=== PATIENT | male | born 1950 | race Caucasian/White ===

== ENCOUNTER 2022-08-13 08:40 | Outpatient (CLI) | payer OTHER, SELFPAY ==
--- NOTE | 2022-08-13 09:04 | RAD_ITS ---
EXAM: XR CHEST, 2 VIEWS CLINICAL INDICATION: copd TECHNIQUE: Frontal and lateral views of the chest. This report was created using [employer] report generation technology. COMPARISON: XR Chest dated 05/10/2017 FINDINGS: LUNGS AND PLEURAL SPACES: Hyperinflation suggesting emphysema. No pneumothorax. No effusion. HEART: Normal heart size. MEDIASTINUM: No mediastinal or hilar mass. BONES/JOINTS: Multiple wedge compression deformities of the thoracic vertebral bodies related to underlying osteoporosis. SOFT TISSUES: Normal. RAD/Chest PA and Lateral IMPRESSION: 1. No acute cardiopulmonary abnormality. 2. COPD. 3. Chronic appearing compression deformities of the thoracic vertebral bodies related to osteoporosis. Electronically Signed: Luis Enrique Chandra MD at 11:30 EST ,
[2022-08-13 09:29] LABS: Absolute Lymphocyte Count 1.39 X10^3/uL (0.83-4.51); Absolute Neutrophil Count 3.1 X10^3/uL (2.0-7.7); Basophil# 0.02 X10^3/uL; Basophil% 0.3 % (0-1); Eosinophil# 0.51 X10^3/uL; Eosinophils% 8.9 % (0-5); Hematocrit 40.3 % (40-54); Lymphocyte # 1.39 X10^3/ul (0.83-4.51); Lymphocyte % 24.1 % (19-41); Mean Corp Hgb Conc 32.3 g/dL (32-36); Mean Corpuscular Hgb 30.8 pg (27.0-32.0); Mean Corpuscular Volume 95.5 fL (80-94); Mean Platelet Vol. 9.2 fl (6.2-12.0); Monocyte# 0.73 X10^3/uL; Monocyte% 12.7 % (0-10); NRBC Flagged by Analyzer 0 % (0-5); Neutrophil # 3.09 X10^3/uL (2.7-7.7); Neutrophil % 53.7 % (47-70); Platelet Count 255 K/mm3 (150-450); RBC Distribution Width CV 13.7 % (11.6-14.6); RBC Distribution Width SD 47.9 fl (35.1-43.9); Red Blood Count 4.22 M/mm3 (4.6-6.2); White Blood Count 5.8 K/mm3 (4.4-11.0)
[2022-08-15 20:07] LABS: Alternaria tenuis <0.10 kU/L (Class 0); Ash, White <0.10 kU/L (Class 0); Aspergillus fumigatus <0.10 kU/L (Class 0); Bermuda Grass <0.10 kU/L (Class 0); Birch <0.10 kU/L (Class 0); Black Walnut <0.10 kU/L (Class 0); Cat Hair / Dander,Stand <0.10 kU/L (Class 0); Cedar, Mountain <0.10 kU/L (Class 0); Cladosporium herbarum <0.10 kU/L (Class 0); Cockroach, American <0.10 kU/L (Class 0); Cottonwood <0.10 kU/L (Class 0); D farinae Mite <0.10 kU/L (Class 0); D pteronyssinus <0.10 kU/L (Class 0); Dog Epithelia <0.10 kU/L (Class 0); Elm, American White <0.10 kU/L (Class 0); Immunoglobulin E 31 IU/mL (6-495); Maple/Box Elder <0.10 kU/L (Class 0); Mulberry, White <0.10 kU/L (Class 0); Oak, White <0.10 kU/L (Class 0); Pecan <0.10 kU/L (Class 0); Penicillium Notatum <0.10 kU/L (Class 0); Pigweed, Rough <0.10 kU/L (Class 0); Ragweed, Short/Common <0.10 kU/L (Class 0); Russian Thistle <0.10 kU/L (Class 0); Sheep Sorrel <0.10 kU/L (Class 0); Sycamore, American <0.10 kU/L (Class 0); Timothy Grass <0.10 kU/L (Class 0)
[2022-08-15 20:35] LABS: Mouse Urine <0.10 kU/L (Class 0)
[2022-08-18 18:07] LABS: Immunoglobulin E 134 IU/mL (6-495)
== END 2022-08-13 23:59 | disposition home or self-care (01) ==
PROVIDERS: PCP Family Medicine; Referring Provider Internal Medicine; Visit Provider Internal Medicine
DX: J44.9 Chronic obstructive pulmonary disease, unspecified (principal); M81.0 Age-related osteoporosis without current pathological fracture
CPT/HCPCS: 36415; 71046; 82785; 85025; 86003

== ENCOUNTER → 2022-08-20 | Outpatient (CLI) | payer OTHER, SELFPAY ==
[2022-08-24 10:15] LABS: Enterovirus By PCR Negative (Negative)
== END | disposition home or self-care (01) ==
LOC: LABSPEC 10:44
PROVIDERS: PCP Family Medicine; Referring Provider Internal Medicine; Visit Provider Internal Medicine
DX: R19.7 Diarrhea, unspecified (principal); D72.10 Eosinophilia, unspecified
CPT/HCPCS: 87177; 87209; 87498

== ENCOUNTER → 2022-08-27 | Outpatient (CLI) | payer SELFPAY, OTHER ==
--- NOTE | 2022-08-27 13:31 | PFTCOMP_ITS ---
COMPLETE PULMONARY FUNCTION TEST INTERPRETATION Brief HPI: Patient is a 72-year-old male, currently under the care of Dr. Romo, who presents to [facility] for complete pulmonary function tests secondary to diagnosis of COPD. Respiratory therapist reports good effort and reproducible results. Interpretation: Forced expiration spirometry shows a very severe large airways obstructive ventilatory defect with an FEV1 of 33% predicted. There is a significant bronchodilator response in FVC by strict ATS criteria. Spirograms are of good quality and plateau slowly, indicating slowly emptying areas of the lungs. The respiratory flow volume loop shows decreased expiratory flow rates at all lung volumes consistent with airway obstruction. Lung volumes by body plethysmography show a decreased total lung capacity at 3.95 L, 72% predicted. There is a trend towards air trapping with hype rinflation, but this does not meet diagnostic criteria by strict ATS criteria. Diffusion capacity by carbon monoxide is decreased at 66% predicted. The airway resistance is elevated. No previous pulmonary function tests were available for review. Impression: Partially reversible very severe large airways mixed ventilatory defect with relatively preserved diffusing capacity.
== END | disposition home or self-care (01) ==
LOC: PSN 09:14
PROVIDERS: PCP Family Medicine; Referring Provider Internal Medicine; Visit Provider Internal Medicine
DX: J44.9 Chronic obstructive pulmonary disease, unspecified (principal); J98.8 Other specified respiratory disorders
CPT/HCPCS: 94060; 94726; 94729

== ENCOUNTER → 2022-09-19 | Outpatient (CLI) | payer OTHER, SELFPAY ==
[2022-09-19 10:30] LABS: Absolute Lymphocyte Count 1.93 X10^3/uL (0.83-4.51); Absolute Neutrophil Count 5.4 X10^3/uL (2.0-7.7); Basophil# 0.06 X10^3/uL; Basophil% 0.6 % (0-1); Eosinophils% 9.6 % (0-5); Hematocrit 43.5 % (40-54); Hemoglobin 13.8 g/dL (13.0-16.5); Lymphocyte # 1.93 X10^3/ul (0.83-4.51); Lymphocyte % 20.7 % (19-41); Mean Corp Hgb Conc 31.7 g/dL (32-36); Mean Corpuscular Hgb 30.1 pg (27.0-32.0); Mean Platelet Vol. 9.5 fl (6.2-12.0); Monocyte# 1.04 X10^3/uL; Monocyte% 11.1 % (0-10); NRBC Flagged by Analyzer 0 % (0-5); Neutrophil # 5.38 X10^3/uL (2.7-7.7); Neutrophil % 57.7 % (47-70); Platelet Count 230 K/mm3 (150-450); RBC Distribution Width CV 13.8 % (11.6-14.6); RBC Distribution Width SD 48.3 fl (35.1-43.9); Red Blood Count 4.58 M/mm3 (4.6-6.2); White Blood Count 9.3 K/mm3 (4.4-11.0)
== END | disposition home or self-care (01) ==
LOC: LAB 10:00
PROVIDERS: PCP Family Medicine; Referring Provider Internal Medicine; Visit Provider Internal Medicine
DX: J44.9 Chronic obstructive pulmonary disease, unspecified (principal); J30.9 Allergic rhinitis, unspecified
CPT/HCPCS: 36415; 85025

== ENCOUNTER → 2022-10-11 | Outpatient (CLI) | payer OTHER, SELFPAY | END | disposition home or self-care (01) | LOC: SL 12:06 | PROVIDERS: PCP Family Medicine; Referring Provider Internal Medicine; Visit Provider Internal Medicine | DX: J44.9 Chronic obstructive pulmonary disease, unspecified (principal) | CPT/HCPCS: 94762 ==

== ENCOUNTER → 2022-11-09 | Outpatient (CLI) | payer SELFPAY, OTHER ==
--- NOTE | 2022-11-09 14:01 | PFTCOMP ---
COMPLETE PULMONARY FUNCTION TEST INTERPRETATION Brief HPI: Patient is a 72-year-old male, currently under the care of Dr. Romo, who presents to [facility] for complete pulmonary function tests secondary to diagnosis of COPD. Respiratory therapist reports good effort and reproducible results. Interpretation: Forced expiration spirometry shows a very severe large airways obstructive ventilatory defect with an FEV1 of 35% predicted. There is a significant bronchodilator response in FVC by strict ATS criteria. Spirograms are of good quality and plateau slowly, indicating slowly emptying areas of the lungs. The respiratory flow volume loop shows decreased expiratory flow rates at all lung volumes consistent with airway obstruction. Lung volumes by body plethysmography show a normal total lung capacity at 4.96 L, 90% predicted. FRC and RV are elevated out of proportion. Lung volume measurements are consistent with air-trapping. Diffusion capacity by carbon monoxide is normal at 101% predicted. The airway resistance is elevated. Compared to previous pulmonary function tests from 08/27/2022, there is been a significant improvement in lung volumes and DLCO. Impression: Partially reversible very severe large airways obstructive ventilatory defect resulting in air trapping, but some improvements compared to August 2022
== END | disposition home or self-care (01) ==
PROVIDERS: PCP Family Medicine; Referring Provider Internal Medicine; Visit Provider Internal Medicine
DX: J30.9 Allergic rhinitis, unspecified (principal); J44.9 Chronic obstructive pulmonary disease, unspecified; Z87.891 Personal history of nicotine dependence; D72.10 Eosinophilia, unspecified
CPT/HCPCS: 94060; 94726; 94729

== ENCOUNTER → 2023-02-11 | Outpatient (CLI) | payer SELFPAY, OTHER ==
--- NOTE | 2023-02-12 16:31 | PFTCOMP ---
Complete pulmonary function test report Indication: COPD Referring physician: Dr. Eduardo Romo Conditions:on the patient's maintenance COPD medications of Breztri once daily budesonide once daily and albuterol as needed Spirometry pre and post bronchodilator showed: 1. Very severe airway obstruction, consistent with Gold stage IV COPD. 2. No significant response to bronchodilator. 3. Review of the flow volume loop corroborated the severe airway obstruction. The test met standards of acceptability, reproducibility, and usability. Compared to spirometry 11/09/2022, the FVC decreased by 8%, FEV 1 x 7%, FEF 2575 x 1%. This is likely a clinically significant difference. Lung volume studies by plethysmography showed: 1. Mild restriction is suggested by TLC of 72% predicted, vital capacity of 60% predicted, functional residual capacity of 68% predicted. 2. There was no evidence of hyperinflation. Compared to the test 6 11/09/2022, the total lung capacity has decreased by 20%. Residual volume decreased by 36%. Clinical and radiographic correlation is recommended. Diffusion capacity by single breath carbon monoxide technique showed: 1. Mildly decreased gas exchange, which normalized when adjusted for lung volumes. This is consistent with COPD related gas exchange abnormality. Compared to the test 11/09/2022, DLCO has decreased by 34%. School Bus Driver/Teacher Assistant comments indicated a good patient effort.
== END | disposition home or self-care (01) ==
PROVIDERS: PCP Family Medicine; Referring Provider Nurse Practitioner Acute Care; Visit Provider Nurse Practitioner Acute Care
DX: J44.9 Chronic obstructive pulmonary disease, unspecified (principal)
CPT/HCPCS: 94060; 94726; 94729

== ENCOUNTER → 2023-02-19 | Outpatient (CLI) | payer OTHER, SELFPAY ==
[2023-02-19 09:44] LABS: Anion Gap 5 (5-15); BUN 16 mg/dL (7-18); BUN/Creat Ratio 14.2 RATIO (10-20); Calcium,Total 8.7 mg/dL (8.5-10.1); Chloride 103 mmol/L (98-107); Creatinine, Serum 1.13 mg/dL (0.70-1.30); EST Glomerular Filtration Rate 67 mL/min (>60); Est Glom Filt Rate - Afr Amer 81 mL/min (>60); Glucose 121 mg/dL (74-106); Potassium 3.8 mmol/L (3.5-5.1); Sodium Level 138 mmol/L (136-145)
[2023-02-19 09:59] LABS: Magnesium 2.3 mg/dL (1.6-2.6); Phosphorus 2.7 mg/dL (2.5-4.9)
== END | disposition home or self-care (01) ==
LOC: LAB 08:37
PROVIDERS: PCP Family Medicine; Referring Provider Internal Medicine; Visit Provider Internal Medicine
DX: F41.8 Other specified anxiety disorders (principal)
CPT/HCPCS: 36415; 80048; 83735; 84100

== ENCOUNTER 2024-10-22 15:53 | Inpatient (IN) | payer OTHER, SELFPAY ==
[2024-10-22] VITALS (9 sets, daily range): BP systolic 111–152; BP diastolic 72–82; PULSE 100–110; RESP 16–26; TEMP 36.3–37.4; O2SAT 90–96; BMI 19.4; BMI 19.9
--- NOTE | 2024-10-22 16:36 | EKG12_ITS ---
Test Reason : Blood Pressure : */* mmHG Vent. Rate : 102 BPM Atrial Rate : 102 BPM P-R Int : 122 ms QRS Dur : 94 ms QT Int : 332 ms P-R-T Axes : 78 79 78 degrees QTcB Int : 432 ms Sinus tachycardia Otherwise normal ECG Confirmed by CANDIDO MCCARTHY, HERNESTO ([id number]), web editor ROB WHITE ([id number]) on 10/26/2024 8:09:49 AM Referred By: aJni Britt Confirmed By: HERNESTO REY MD
--- NOTE | 2024-10-22 16:37 | EDS_ITS ---
HPI History of Present Illness Chief Complaint: Shortness of Breath Informant: patient and spouse/S.O. Narrative Narrative: 74-year-old [employer]reg[employer] male presenting to the emergency room with difficulty breathing. Patient states that he has a history of COPD and is a former smoker. 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 Yesterday and more so today he notes shortness of breath. It is he states it took him 30 minutes to get his shirt on this morning. He denies any significant change in cough. He notes some lower lateral discomfort just underneath his rib cage that has resolved. He notes that his ankles have seemed more swollen since he was on some prednisone and later transition to meloxicam. states it looks like his face is more swollen today. He denies fever rhinorrhea headache diarrhea. He notes difficulty with urination. [facility] Medical History Perennial non-allergic rhinitis Stage 3 severe chronic obstructive pulmonary disease by Global Initiative for Chronic Obstructive Lung Disease classification Chronic obstructive asthma (with obstructive pulmonary disease) Allergic rhinitis due to allergen Left wrist Home Medications ?Medication ?Instructions ?Recorded ?Last Taken ?Type mirtazapine 15 mg tablet 15 mg PO QHS 08/13/22 History ipratropium bromide 21 mcg (0.03 2 spray intranasal BI D-TID PRN 11/20/22 Unknown Rx %) nasal spray allergy symptoms #30 mL potassium chloride 10 mEq 10 meq PO DAILY #30 tabs Unknown Rx tablet,extended release albuterol sulfate 90 mcg/actuation 2 inh inhalation Q6 H PRN shortness 09/24/23 Unknown Rx aerosol inhaler of breath or wheezing #8.5 g shalonda budesonide 160 mcg-glycopyr 9 2 inh inhalation BID #10 .7 grams 08/24/24 Unknown Rx mcg-formot 4.8 mcg/actuation HFA inhaler (Breztri Aerosphere) alprazolam 1 mg tablet 0.5 mg PO QHS 10/22/2410/21 History meloxicam 15 mg tablet 15 mg PO DAILY 10/22/2410/10 History venlafaxine 75 mg capsule,extended 75 mg PO DAILY 10/1010/22/24 History release 24 hr Allergy/AdvReac Type Severity Reaction Status Date / Time Sulfa (Sulfonamide Allergy Unknown Verified 10/22/24 15:54 Antibiotics) Family History Mother Heart disease Surgical History Right arm and ankle Left elbow ORIF Social History Smoking Status: Former smoker ROS ROS ED Constitutional Constitutional ED: Denies chills, fever(s) or weight loss Eyes Eyes: Denies change in vision or diplopia ENT ENT ED: Denies ear pain, rhinorrhea or sore throat Cardiovascular Cardiovascular: Denies chest pain, orthopnea, palpitations or racing heartbeat Respiratory/Chest Respiratory/Chest: Reports dyspnea and dyspnea on exertion; Denies cough or orthopnea Gastrointestinal Gastrointestinal: Denies abdominal pain, diarrhea, nausea or vomiting Genitourinary Genitourinary ED: Denies dysuria, hematuria or urinary frequency Musculoskeletal Musculoskeletal: Denies arthralgias or myalgias Integumentary Denies abscess or rash Neurologic Neurologic: Denies headache(s) or weakness Psychiatric Psychiatric: Denies anxiety, depression, suicidal ideation or suicidal thoughts Endocrine Endocrinology: Denies polydipsia, polyphagia or polyuria Allergic/Immunologic Allergic/Immunologic ED: Denies mouth swelling, tongue swelling or urticaria EXAM Physical Exam Const Vital Signs: 10/22/24 15:54 10/22/24 15:54 10/22/24 16:48 Temperature 99.4 F H Temperature Source Oral Pulse Rate 110 H 101 H Respiratory Rate 26 H 20 H Respiratory Effort Normal Non-Labored Respiratory Depth Normal Respiratory Pattern Normal Normal Blood Pressure 152/81 H Blood Pressure Mean 104 Pulse Ox 90 Oxygen Delivery Method Room Air Room Air 10/22/24 17:54 10/22/24 19:00 10/22/24 19:42 Temperature 99.2 F H Temperature Source Pulse Rate 100 100 101 H Respiratory Rate 16 25 H 25 H Respiratory Effort Respiratory Depth Respiratory Pattern Blood Pressure 111/77 126/72 H 126/72 H Blood Pressure Mean 88 90 90 Pulse Ox 95 94 92 Oxygen Delivery Method Room Air Positive well nourished and well developed General Appearance ED: well developed HEENT Reports normocephalic, head/scalp atraumatic and moist mucous membranes Eyes PERRL and EOMs intact bilaterally Neck no lymphadenopathy, supple and no JVD Resp Resp Narrative: Patient has a quiet tachypnea. He is conversational dyspnea. Significantly diminished breath sounds bilaterally. Cardio regular rate, regular rhythm and no murmurs Rate: tachycardic GI normal to inspection, nondistended, normoactive bowel sounds and non-tender Palpation: soft Back/Spine no CVA tenderness and normal ROM Extremity normal to inspection General Extremety ED: Negative for edema General Extremity: Negative for edema Neuro oriented x3 and CN's II-XII intact bilaterally Sensorium / Orientation: alert Motor Exam: strength 5/5 throughout Psych mental status grossly normal Mood & Affect: Negative for depressed or tearful Skin no rashes or lesions noted and no wounds MDM MDM MDM Narrative Medical decision making narrative: Differential diagnosis includes but not limited to pneumonia viral syndrome COPD exacerbation pneumothorax pulmonary embolism acute coronary syndrome congestive heart failure Patient's white count slightly elevated 12.5 hemoglobin 12.2 platelet count of 215. Troponin is 7 BNP is 63 BMP within normal limits. My independent interpretation of the chest x-ray is chronic changes associated with COPD with possible early infiltrate in the right lower lung. EKG is nonischemic sinus tachycardia at 102. Patient received breathing treatments as well as Solu-Medrol. A CTA of the chest was obtained to rule out pulmonary embolism as well as gain greater clarity of the right lower lobe. CT does not demonstrate any obvious pulmonary emboli. There is evidence of bronchiectasis and honeycombing. There is evidence of emphysema. No obvious pleural effusion. Patient was reassessed. He feels better. He is satting 91% on room air. He is still slightly tachycardic at 103. He was ambulated. With simple ambulation the patient became noticeably dyspneic pulse ox fell to around 85% and it took him a brief period to recover back in the bed. Patient I do think it is reasonable that we admit the patient for continued treatments geared towards COPD exacerbation. I spoke with our hospitalist regarding admission. We discussed antibiotics and both agreed on giving him a dose of Zosyn. Will plan blood cultures. I do not believe he is septic at this time. History & Record Review Discussion w/independent historian: Patient and Significant other Lab Data Attestation: I reviewed the patient's lab results. Labs: Laboratory Results - last 24 hr 10/22/24 16:55 WBC 12.5 H RBC 3.95 L Hgb 12.2 L Hct 37.1 L MCV 93.9 MCH 30.9 MCHC 32.9 RDW Std Deviation 45.9 H RDW Coeff of [place] 13.3 Plt Count 215 MPV 9.2 Immature Gran % (Auto) 0.400 Neut % (Auto) 80.5 H Lymph % (Auto) 10.0 L Lau[place] % (Auto) 8.1 Eos % (Auto) 0.6 Baso % (Auto) 0.4 Absolute Neuts (auto) 10.0 H Absolute Lymphs (auto) 1.25 Nucleated RBC % 0 Sodium 136 Potassium 4.0 Chloride 102 Carbon Dioxide 29.0 Anion Gap 6 BUN 13 Creatinine 1.02 Estim Creat Clear Calc 47.67 Est GFR (MDRD) Af Amer 91 Est GFR (MDRD) Non-Af 75 BUN/Creatinine Ratio 12.7 Glucose 86 Calcium 9.2 Troponin I High Sens 7 B-Natriuretic Peptide 63.0 Radiography Diagnostic Testing: Clinical Impression(s) from Imaging Studies Chest X-Ray 10/22/24 17:00 IMPRESSION: 1. Ill-defined patchy airspace opacification within the right lower lung zone, which is nonspecific but may be seen in infectious/inflammatory pneumonia. 2. COPD. Reading Location: [facility] Chest CTA 10/22/24 17:46 IMPRESSION: 1. No evidence of acute pulmonary emboli. 2. Bilateral ground-glass opacities with bronchiectasis and honeycombing, most compatible with interstitial pulmonary fibrosis such as combined pulmonary fibrosis and emphysema or NSIP. Additional considerations include atypical pneumonia. Clinical and laboratory correlation recommended. 3. Moderate emphysema. 4. Small lobular left upper lobe pulmonary nodule. Correlation with prior CT chest imaging is recommended if available. If no imaging available, recommend follow-up CT chest in 6-12 months is recommended. 5. Moderate coronary artery calcifications. One or more dose reduction techniques were used (e.g., Automated exposure control, adjustment of the mA and/or kV according to patient size, use of iterative reconstruction technique). Reading Location: [facility] Management Discussion w/another healthcare provider: Hospitalist (Dr Lowery) Discharge Plan Dx/Rx/DC Orders Clinical Impression: COPD with acute exacerbation Disposition Disposition: Acute Care Hospital [facility]
[2024-10-22] MEDS: Ipratropium/Albuterol Sulfate 3 ML AMPUL.NEB INHALATION (16:46)
[2024-10-22] MEDS: Albuterol 2.5 MG/3 ML VIAL.NEB. INHALATION (16:46)
--- NOTE | 2024-10-22 17:00 | RAD_ITS ---
PROCEDURE: CHEST 1 VIEW (PORTABLE) REASON FOR EXAM: 74-year-old male, shortness of breath and weakness for 1 day. TECHNIQUE: Frontal view of the chest. COMPARISON: Chest radiographs 08/13/2022. FINDINGS: The heart size is normal. Calcification of the thoracic aorta. Stable findings of emphysema and COPD. Mild ill-defined patchy airspace opacification within the right lower lung zone. No pleural effusion or pneumothorax. Degenerative changes are identified within the thoracic spine. RAD/Chest 1 View (Portable) IMPRESSION: 1. Ill-defined patchy airspace opacification within the right lower lung zone, which is nonspecific but may be seen in infectious/inflammatory pneumonia. 2. COPD. Reading Location: [id number]
[2024-10-22 17:06] LABS: Absolute Lymphocyte Count 1.25 X10^3/uL (0.83-4.51); Basophil# 0.05 X10^3/uL; Basophil% 0.4 % (0-1); Eosinophil# 0.07 X10^3/uL; Eosinophils% 0.6 % (0-5); Hematocrit 37.1 % (40-54); Hemoglobin 12.2 g/dL (13.0-16.5); Lymphocyte # 1.25 X10^3/ul (0.83-4.51); Mean Corp Hgb Conc 32.9 g/dL (32-36); Mean Corpuscular Hgb 30.9 pg (27.0-32.0); Mean Corpuscular Volume 93.9 fL (80-94); Mean Platelet Vol. 9.2 fl (6.2-12.0); Monocyte# 1.01 X10^3/uL; Monocyte% 8.1 % (0-10); NRBC Flagged by Analyzer 0 % (0-5); Neutrophil # 10.02 X10^3/uL (2.7-7.7); Neutrophil % 80.5 % (47-70); Platelet Count 215 K/mm3 (150-450); RBC Distribution Width CV 13.3 % (11.6-14.6); RBC Distribution Width SD 45.9 fl (35.1-43.9); Red Blood Count 3.95 M/mm3 (4.6-6.2); White Blood Count 12.5 K/mm3 (4.4-11.0)
[2024-10-22] MEDS: MethylPREDNISolone 125 MG/2 ML Vial 60 MG IV (17:20)
[2024-10-22 17:44] LABS: Anion Gap 6 (5-15); BUN 13 mg/dL (7-18); BUN/Creat Ratio 12.7 RATIO (10-20); Calcium,Total 9.2 mg/dL (8.5-10.1); Chloride 102 mmol/L (98-107); Creatinine, Serum 1.02 mg/dL (0.70-1.30); EST Glomerular Filtration Rate 75 mL/min (>60); Est Glom Filt Rate - Afr Amer 91 mL/min (>60); Estimated Creatinine Clearance 47.67 ml/min; Glucose 86 mg/dL (74-106); Sodium Level 136 mmol/L (136-145); Troponin-I HS 7 pg/mL (3.0-78.0)
--- NOTE | 2024-10-22 17:46 | CT_ITS ---
PROCEDURE: CTA CHEST W/WO CONTRAST REASON FOR EXAM: 74-year-old male, shortness of breath and weakness. TECHNIQUE: CTA imaging of the chest with intravenous contrast. 3D reconstructions. CONTRAST: Administered. COMPARISON: Same day chest radiograph. FINDINGS: Hardware: None. Lymph nodes: No mediastinal hilar or axillary lymphadenopathy. Calcified left hilar granulomas. Heart: Normal heart size. No pericardial effusion. Moderate coronary artery calcifications. RV/LV Diameter Ratio: N/A Thoracic Aorta: No thoracic aortic aneurysm or dissection. Moderate calcific plaque of the thoracic aorta. Pulmonary Vessels: No evidence of acute pulmonary emboli through the major subsegmental branches. Most Proximal Level of Embolus (if embolus present): N/A Lungs and Airways: Central airways are patent. Moderate paraseptal and centrilobular emphysema with scattered areas of scarring. Mild bilateral bronchiectasis. Small lobular pulmonary nodule within the left upper lobe measuring 1.2 cm (series 2, image 114). Patchy ground-glass opacities within the bilateral dependent lower lobes, [id number], with associated bronchiectasis and honeycombing. Pleura: No pleural effusion. No pneumothorax. Upper Abdomen: Calcific plaque of the upper abdominal aorta. Bones: Diffuse osseous demineralization with severe chronic appearing vertebral body compression fracture deformities throughout the thoracic spine. Moderate kyphosis. Left lateral rib fracture deformities. CT/CTA Chest W/WO Contrast IMPRESSION: 1. No evidence of acute pulmonary emboli. 2. Bilateral ground-glass opacities with bronchiectasis and honeycombing, most compatible with interstitial pulmonary fibrosis such as combined pulmonary fibrosis and emphysema or NSIP. Additional consider ations include atypical pneumonia. Clinical and laboratory correlation recommended. 3. Moderate emphysema. 4. Small lobular left upper lobe pulmonary nodule. Correlation with prior CT c hest imaging is recommended if available. If no imaging available, recommend follow-up CT chest in 6-12 months is recommended. 5. Moderate coronary artery calcifications. One or more dose reduction techniques were used (e.g., Automated exposure contr ol, adjustment of the mA and/or kV according to patient size, use of iterative reconstruction technique). Reading Location: [id number]
--- NOTE | 2024-10-22 19:44 | PCM.HP.STD ---
[facility] - General General Date of Admission: 10/22/24 Date of Service: 10/22/24 Chief Complaint: SOB and Wheezing. 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 HS, listed allergy to sulfa antibiotics (?), history of closed olecranon fracture; s/p ORIF (2017) and OA who presents to [facility] ER complaining of shortness of breath. Mr. 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 When he woke up this morning he took an ~30 minutes to get his shirt on due to severe fatigue and soreness in his lower ribs that has since resolved. He admits to ankle and face swelling after recent prednisone with transition later to meloxicam. He also admits to difficulty with urination but he denies fever, chills, nausea, vomiting, diarrhea, constipation, abdominal pain, headache or focal neurologic deficits. In the ER he was noted to have CTA of the chest that revealed no evidence of pulmonary emboli but did show bilateral ground-glass opacities with bronchiectasis and honeycombing, most compatible with Interstitial Pulmonary Fibrosis such as combined pulmonary fibrosis and emphysema or NSIP with additional considerations to include Atypical Pneumonia with moderate emphysema and small lobular Left upper lobe pulmonary nodule with follow-up CT recommended in addition to moderate coronary artery calcifications with corresponding Leukocytosis of 12.5 K present on admission and low-grade fever of 99.2 ?F complicated by tachypnea of ~25 breaths/min indicating clinical evidence of Respiratory Insufficiency due to AE COPD and he was then admitted to the PCU for ongoing care for a stay that is expected to extend beyond 2 midnights. PFSH Medical History Perennial non-allergic rhinitis Stage 3 severe chronic obstructive pulmonary disease by Global Initiative for Chronic Obstructive Lung Disease classification Chronic obstructive asthma (with obstructive pulmonary disease) Allergic rhinitis due to allergen Left wrist Home Medications ?Medication ?Instructions ?Recorded ?Last Taken ?Type mirtazapine 15 mg tablet 15 mg PO QHS 08/13/22 10/21/24 History ipratropium bromide 21 mcg (0.03 2 spray intranasal BID-TID PRN 11/20/22 Unknown Rx %) nasal spray allergy symptoms #30 mL potassium chloride 10 mEq 10 meq PO DAILY #30 tabs 11/20/22 Unknown Rx tablet,extended release albuterol sulfate 90 mcg/actuation 2 inh inhalation Q6H PRN shortness 09/24/23 Unknown Rx aerosol inhaler of breath or wheezing #8.5 grams budesonide 160 mcg-glycopyr 9 2 inh inhalation BID #10.7 grams 08/24/24 Unknown Rx mcg-formot 4.8 mcg/actuation HFA inhaler ([employer] Aerosphere) alprazolam 1 mg tablet 0.5 mg PO QHS 10/22/24 10/21/24 History meloxicam 15 mg tablet 15 mg PO DAILY 10/22/24 10/22/24 History venlafaxine 75 mg capsule,extended 75 mg PO DAILY 10/22/24 10/22/24 History release 24 hr Allergy/AdvReac Type Severity Reaction Status Date / Time Sulfa (Sulfonamide Allergy Unknown Verified 10/22/24 15:54 Antibiotics) Family History Mother Heart disease Surgical History Right arm and ankle Left elbow ORIF Social History Smoking Status: Former smoker ROS ROS Narrative Review of Systems: Constitutional: Patient denies fever or chills. Eyes: Patient denies change in vision or discharge from eyes. ENT: Patient denies rhinorrhea, sore throat or ear pain. Resp: Patient admits to dyspnea on exertion that progressed to shortness of breath at rest with wheezing. CV: Patient denies chest pain, palpitations, heart racing or lower extremity edema. GI: Patient denies abdominal pain, nausea, vomiting, diarrhea or constipation. : Patient admits to urinary frequency but he denies dysuria or hematuria. MSK: Patient denies arthralgias or myalgias. Skin: Patient denies rash, abscess, wounds or jaundice. Psych: Patient denies symptoms of uncontrolled depression or anxiety. Neuro: Patient denies headache, paresthesias or focal neurologic deficits. Allergy: Patient denies lip swelling, tongue swelling or urticaria. Hematology: Patient denies easy bleeding or easy bruisability. Endocrinology: Patient denies polyuria, polydipsia or polyphagia. 14 point review of systems otherwise negative save for positives noted above in HPI. Vital Signs Vital Signs Vital Signs: 10/22/24 15:54 10/22/24 15:54 10/22/24 16:48 Temperature 99.4 F H Temperature Source Oral Pulse Rate 110 H 101 H Respiratory Rate 26 H 20 H Respiratory Effort Normal Non-Labored Respiratory Depth Normal Respiratory Pattern Normal Normal Blood Pressure 152/81 H Blood Pressure Mean 104 Pulse Ox 90 Oxygen Delivery Method Room Air Room Air 10/22/24 17:54 10/22/24 19:00 10/22/24 19:42 Temperature 99.2 F H Temperature Source Pulse Rate 100 100 101 H Respiratory Rate 16 25 H 25 H Respiratory Effort Respiratory Depth Respiratory Pattern Blood Pressure 111/77 126/72 H 126/72 H Blood Pressure Mean 88 90 90 Pulse Ox 95 94 92 Oxygen Delivery Method Room Air Weight Weight: 120 lb 9.486 oz Body Mass Index (BMI) 19.4 Physical Exam Const alert, oriented x3 and no apparent distress Constitutional Narrative: Patient thin, gaunt and noted to have conversational dyspnea with nontoxic appearance. General Appearance: cooperative HEENT normocephalic, head/scalp atraumatic, hearing grossly normal bilaterally and moist oral mucous membranes Eyes PERRL, EOMs intact bilaterally and conjunctivae normal Neck no lymphadenopathy and supple Resp Resp Narrative: Severely diminished breath sounds bilaterally with faint expiratory wheezing. Auscultation: wheezes Cardio regular rate and regular rhythm Cardio Narrative: Tachycardia at ~101 bpm noted. GI normal to inspection, nondistended, normoactive bowel sounds, soft to palpation, non-tender and non-distended Extremity normal to inspection, full ROM and no clubbing, cyanosis or edema Skin Skin Narrative: Patient has no evidence of rash, abscess, wounds or jaundice. Neuro oriented x3, CN's II-XII intact bilaterally, moves all extremities and no focal motor deficits Sensorium / Orientation: awake, alert, oriented to person, oriented to place and oriented to time Speech: speech normal Psych affect normal Results Medical Records Data Attestation: I reviewed the patient's medical records Lab / Micro Data Attestation: I reviewed the patient's lab results. 10/22/24 16:55 10/22/24 16:55 Labs: Laboratory Results - last 24 hr 10/22/24 16:55: WBC 12.5 H, RBC 3.95 L, Hgb 12.2 L, Hct 37.1 L, MCV 93.9, MCH 30.9, MCHC 32.9, RDW Std Deviation 45.9 H, RDW Coeff of Salvador 13.3, Plt Count 215, MPV 9.2, Immature Gran % (Auto) 0.400, Neut % (Auto) 80.5 H, Lymph % (Auto) 10.0 L, [place] % (Auto) 8.1, Eos % (Auto) 0.6, Baso % (Auto) 0.4, Absolute Neuts (auto) 10.0 H, Absolute Lymphs (auto) 1.25, Nucleated RBC % 0, Sodium 136, Potassium 4.0, Chloride 102, Carbon Dioxide 29.0, Anion Gap 6, BUN 13, Creatinine 1.02, Estim Creat Clear Calc 47.67, Est GFR (MDRD) Af Amer 91, Est GFR (MDRD) Non-Af 75, BUN/Creatinine Ratio 12.7, Glucose 86, Calcium 9.2, Troponin I High Sens 7, B-Natriuretic Peptide 63.0 Imaging Radiology Impression Chest X-Ray 10/22/24 17:00 IMPRESSION: 1. Ill-defined patchy airspace opacification within the right lower lung zone, which is nonspecific but may be seen in infectious/inflammatory pneumonia. 2. COPD. Reading Location: [facility] Chest CTA 10/22/24 17:46 IMPRESSION: 1. No evidence of acute pulmonary emboli. 2. Bilateral ground-glass opacities with bronchiectasis and honeycombing, most compatible with interstitial pulmonary fibrosis such as combined pulmonary fibrosis and emphysema or NSIP. Additional considerations include atypical pneumonia. Clinical and laboratory correlation recommended. 3. Moderate emphysema. 4. Small lobular left upper lobe pulmonary nodule. Correlation with prior CT chest imaging is recommended if available. If no imaging available, recommend follow-up CT chest in 6-12 months is recommended. 5. Moderate coronary artery calcifications. One or more dose reduction techniques were used (e.g., Automated exposure control, adjustment of the mA and/or kV according to patient size, use of iterative reconstruction technique). Reading Location: [facility] Assessment & Plan Assessment/Plan (1) COPD with acute exacerbation: (2) Asthma-COPD overlap syndrome: (3) Atypical pneumonia: (4) Bronchiectasis: QUALIFIERS: Bronchiectasis type: with acute lower respiratory infection Qualified Code(s): J47.0 - Bronchiectasis with acute lower respiratory infection (5) IPF (idiopathic pulmonary fibrosis): (6) Pulmonary nodule: (7) Exposure to environmental toxic substances: (8) History of tobacco use: (9) Chronic obstructive asthma (with obstructive pulmonary disease): (10) Respiratory insufficiency: (11) Nocturnal hypoxia: (12) Difficulty urinating: (13) Perennial non-allergic rhinitis: PLAN: Plan 1. AE asthma/COPD with CTA of the chest that revealed no evidence of pulmonary emboli but did show bilateral ground-glass opacities with bronchiectasis and honeycombing, most compatible with Interstitial Pulmonary Fibrosis such as combined pulmonary fibrosis and emphysema or NSIP with additional considerations to include Atypical Pneumonia with moderate emphysema and small lobular Left upper lobe pulmonary nodule with follow-up CT recommended in addition to moderate coronary artery calcifications with Leukocytosis of 12.5K and low-grade fever of 99.2 ?F - Admit to PCU. Continue IV Solu-Medrol and empiric IV piperacillin-tazobactam and await culture and sensitivity data. Check urinary antigens to Streptococcus pneumonia and Legionella. Check extended viral respiratory panel. Continue scheduled and as needed nebulizers/inhalers as previous. Start Mucinex scheduled twice daily. Give acetaminophen as needed for [id number] (level 1-5/10) pain or fever. Give morphine IV as needed for severe (level 6-10/10 pain. Finally, we will consult forestry patrolman to see this patient on rounds in a.m. given the severity of pathology noted on his CTA of chest with help appreciated in advance. 2. Recent Toxic Environmental Exposure to dust while working at [email or web address] triggering #1 - Thankfully, patient has retired from his job at the [employer] shop. He was instructed to avoid similar exposures in the future. 3. 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 4. Respiratory Insufficiency arising from #1 - #3 in the setting of previously known Nocturnal Hypoxia - Wean supplemental oxygen as tolerated. 5. Difficulty Urinating due to suspected BPH adding to the medical complexity of #1 - #4 - Check UA and PSA. 6. Chronic perennial non-allergic rhinitis; on ipratropium bromide nasal spray 3 times daily as needed - Resume as previous. 7. Depression with anxiety; on mirtazapine, venlafaxine and alprazolam q. HS - Maintain current regimen. Check TSH. 8. Listed allergy to sulfa antibiotics (?) - Noted. We will avoid this class of agents. 9. History of closed olecranon fracture; s/p ORIF (2017) - Noted. 10. OA - Give acetaminophen prn according to scale noted in #1. 11. DVT/GI prophylaxis - Lovenox 40 mg sq daily plus SCD's. Start pantoprazole daily in light of IV steroids used to treat #1. Total time: Approximately (but not less than) 75 minutes. Charges/Coding Visit Charges Inpatient E&M: 56603 Init Hosp L3
[2024-10-22] MEDS: Piperacil/Tazobactam 4.5 GM in 0.9% Normal Saline (100mL MB+) 100 ML IV (20:19)
[2024-10-22 20:59] LABS: Thyroid Stim Hormone (TSH) 0.845 uIU/mL (0.358-3.740)
[2024-10-22 21:01] LABS: PSA,Total - Annual Screen 2.44 ng/mL (0.00-4.00)
[2024-10-22] MEDS: 0.9% Normal Saline (1000mL) 1,000 ML 70 ML IV (21:28)
[2024-10-22 21:30] LABS: Allen Test Positive; Base Excess 4 mmol/L (-2 to +2); Bicarbonate 28.3 mmol/L (22-26); Blood Gas Specimen Type ART; Mode Not entered; O2 Delivery Device Room Air; PO2 71 mmHG (75-100); SITE R Brach; SO2 94 % (95-99); Total Carbon Dioxide 30 mmol/L; pCO2 44.7 mmHg (35-45); pH 7.41 (7.35-7.45)
[2024-10-22] MEDS: 0.9% Saline Lock 10 ML Syringe IV (21:30)
[2024-10-22 22:40] LABS: Bacteria 0 SEEN /hpf (None Seen); Mucous, Urine 0 SEEN /hpf (<or=2+); Squamous Epithelial Cells - UA 0 SEEN /hpf (0-5); White Blood Cells 0 SEEN /hpf (0-5)
[2024-10-22] MEDS: Mirtazapine 15 MG Tablet PO (22:40)
[2024-10-22] MEDS: Lactobacillis Acidophilus 1 CAP PO (22:40)
[2024-10-22] MEDS: guaiFENesin 1,200 MG Tablet 1200 MG PO (22:41)
[2024-10-22] MEDS: ALPRAZolam 0.5 MG Tablet PO (22:41)
[2024-10-22 22:42] LABS: Color, Urine Yellow (Yellow); Glucose, Dipstick Normal (Normal); Ketone-Dipstick 5 mg/dl (Negative); Leukocyte Esterase-Dipstick Negative /ul (Negative); Nitrite-Dipstick Negative (Negative); Occult Blood-Urine 25 /ul (Negative); Protein-Dipstick 15 mg/dl (Negative); Specific Gravity, Urine 1.005 (1.002-1.030); Urine Bilirubin Dipstick Negative (Negative); Urine Clarity Clear (Clear); Urine Urobilinogen Normal (Normal)
[2024-10-22 23:20] LABS: Red Blood Cells-Urine 5-10 SEEN /hpf (0-5)
[2024-10-23] VITALS (8 sets, daily range): BP systolic 115–124; BP diastolic 67–71; PULSE 84–119; RESP 16–20; TEMP 35.9–37; O2SAT 90–100; BMI 19.8
[2024-10-23] MEDS: Piperacil/Tazobactam 3.375 GM in 0.9% Normal Saline (50mL MB+) 50 ML IV ×2 (05:46→14:05)
[2024-10-23 06:03] LABS: Absolute Lymphocyte Count 0.67 X10^3/uL (0.83-4.51); Absolute Neutrophil Count 8.6 X10^3/uL (2.0-7.7); Basophil# 0.01 X10^3/uL; Basophil% 0.1 % (0-1); Hematocrit 32.5 % (40-54); Hemoglobin 10.5 g/dL (13.0-16.5); Lymphocyte # 0.67 X10^3/ul (0.83-4.51); Mean Corp Hgb Conc 32.3 g/dL (32-36); Mean Corpuscular Hgb 30.7 pg (27.0-32.0); Mean Platelet Vol. 9.5 fl (6.2-12.0); Monocyte# 0.21 X10^3/uL; Monocyte% 2.2 % (0-10); NRBC Flagged by Analyzer 0 % (0-5); Neutrophil # 8.61 X10^3/uL (2.7-7.7); Neutrophil % 90.4 % (47-70); Platelet Count 212 K/mm3 (150-450); RBC Distribution Width CV 13.2 % (11.6-14.6); RBC Distribution Width SD 46.5 fl (35.1-43.9); Red Blood Count 3.42 M/mm3 (4.6-6.2); White Blood Count 9.5 K/mm3 (4.4-11.0)
[2024-10-23 06:20] LABS: ALB/GLOB Ratio 0.7 RATIO (0.9-2.4); AST(SGOT) 22 U/L (15-37); Alanine Aminotransfer ALT/SGPT 14 U/L (16-61); Albumin, Serum 2.5 g/dL (3.2-5.0); Alkaline Phosphatase 52 U/L (45-117); Anion Gap 4 (5-15); BUN 12 mg/dL (7-18); BUN/Creat Ratio 14.4 RATIO (10-20); Calcium,Total 8.6 mg/dL (8.5-10.1); Chloride 106 mmol/L (98-107); Creatinine, Serum 0.83 mg/dL (0.70-1.30); EST Glomerular Filtration Rate 95 mL/min (>60); Est Glom Filt Rate - Afr Amer 115 mL/min (>60); Estimated Creatinine Clearance 59.54 ml/min; Globulin 3.8 g/dL (2.2-4.2); Glucose 150 mg/dL (74-106); Magnesium 2.1 mg/dL (1.6-2.6); Phosphorus 3.2 mg/dL (2.5-4.9); Potassium 4.1 mmol/L (3.5-5.1); Protein, Total 6.3 g/dL (6.4-8.2); Sodium Level 138 mmol/L (136-145)
[2024-10-23] MEDS: Ipratropium/Albuterol Sulfate 3 ML AMPUL.NEB INHALATION ×2 (07:09→12:52)
[2024-10-23] MEDS: Potassium Chloride Oral Tablet 10 MEQ PO (08:00)
[2024-10-23] MEDS: Ascorbic Acid 500 MG Tablet 1000 MG PO (08:00)
[2024-10-23] MEDS: Venlafaxine XR 75 MG Capsule PO (08:01)
[2024-10-23] MEDS: Zinc Sulfate 50 mg zinc (220 mg) ORAL capsule PO (08:01)
[2024-10-23] MEDS: Cholecalciferol (Vit D3) 125 MCG CAPSULE (5,000 UNITS) PO (08:01)
[2024-10-23] MEDS: Meloxicam 15 MG Tablet PO (08:01)
[2024-10-23] MEDS: MethylPREDNISolone 125 MG/2 ML Vial 60 MG IV (08:01)
[2024-10-23] MEDS: guaiFENesin 1,200 MG Tablet 1200 MG PO (08:01)
[2024-10-23] MEDS: Pantoprazole Sodium 40 MG Tablet PO (08:01)
[2024-10-23] MEDS: Lactobacillis Acidophilus 1 CAP PO ×2 (08:01→14:05)
[2024-10-23] MEDS: 0.9% Saline Lock 10 ML Syringe IV ×2 (08:09→14:06)
[2024-10-23 11:20] LABS: Rheumatoid Factor < 10.0 IU/mL (<15)
--- NOTE | 2024-10-23 11:51 | EX.PCM.CONCC ---
Assessment & Plan Assessment/Plan (1) Asthma-COPD overlap syndrome: PLAN: Plan RECOMMENDATIONS: 1. Continue scheduled bronchodilators and steroids. 2. Okay to discontinue antimicrobials from my perspective. 3. At discharge, recommend transitioning the patient to prednisone 40 mg daily x 5 days. 4. Perform walking oximetry study prior to consideration for discharge home. 5. Check CAROLINE with reflex, ANCA, rheumatoid factor and CCP antibodies. 6. Will sign off at this time. Please call with any additional questions. IMPRESSIONS: 1. 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 Low clinical index suspicion for underlying pneumonia. Therefore, antibiotics can be discontinued from my perspective. I would recommend continuing bronchodilator therapy along with steroids. At discharge, the patient can be transition to prednisone 40 mg daily, with plans to complete a 5-day burst. Recommend resuming Breztri at discharge and following up in the pulmonary medicine clinic as scheduled on December 08. Given the subpleural interstitial changes noted in the lung bases with early honeycomb formation, will check CAROLINE with reflex, ANCA, rheumatoid factor and CCP antibodies. The patient is maintaining appropriate oxygen saturations on room air. Recommend performing ambulatory walking study prior to consideration for discharge home. Follow-up in the pulmonary medicine clinic as scheduled on December 08. 2. Left upper lobe pulmonary nodule Measuring approximately 9 mm in size on my estimation. Recommend follow-up CT scan in 3 months on outpatient basis. This note was generated with [employer]idel[employer] dictation software. It may contain incorrect words, spelling, and punctuation that were not noted in checking the note before signing. HPI Consult Data Date of Consult: 10/23/24 HPI Narrative Reason for Consultation: Shortness of breath HPI Narrative: The patient is a 74-year-old male, with a history as outlined below, who presented to the emergency department on October 22 with shortness of breath and chest tightness. The patient has a known history of very severe COPD/asthma overlap syndrome along with nocturnal hypoxemia requiring 2 L/min of supplemental oxygen with sleep. 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 Following this exposure, the patient experienced increasing shortness of breath and chest tightness. He has remained compliant with his triple therapy inhaler regimen. The patient does report a mild cough but no sputum production. On presentation to the emergency department, the patient was noted to have a temperature of 99.4 ?F. He was otherwise hemodynamically stable and maintaining appropriate oxygen saturations on room air. Laboratory evaluation was notable for a white blood cell count of 12,000. Arterial blood gas was notable for a pH of 7.4 with a pCO2 of 44 and pO2 of 71. Respiratory viral panel was negative. CTA chest showed no evidence for pulmonary embolism. There was, however, evidence of moderate emphysema and lower lobe subpleural groundglass opacities with early evidence of honeycomb formation. The patient was placed on antimicrobials, bronchodilators and steroids. He was subsequently admitted to the progressive care unit for further management. [facility] Medical History Perennial non-allergic rhinitis Stage 3 severe chronic obstructive pulmonary disease by Global Initiative for Chronic Obstructive Lung Disease classification Chronic obstructive asthma (with obstructive pulmonary disease) Allergic rhinitis due to allergen Left wrist Home Medications ?Medication ?Instructions ?Recorded ?Last Taken ?Type mirtazapine 15 mg tablet 15 mg PO QHS 08/13/22 10/21/24 History ipratropium bromide 21 mcg (0.03 2 spray intranasal BID-TID PRN 11/20/22 Unknown Rx %) nasal spray allergy symptoms #30 mL potassium chloride 10 mEq 10 meq PO DAILY #30 tabs 11/20/22 Unknown Rx tablet,extended release albuterol sulfate 90 mcg/actuation 2 inh inhalation Q6H PRN shortness 09/24/23 Unknown Rx aerosol inhaler of breath or wheezing #8.5 grams budesonide 160 mcg-glycopyr 9 2 inh inhalation BID #10.7 grams 08/24/24 Unknown Rx mcg-formot 4.8 mcg/actuation HFA inhaler (Breztri Aerosphere) alprazolam 1 mg tablet 0.5 mg PO QHS 10/22/24 10/21/24 History meloxicam 15 mg tablet 15 mg PO DAILY 10/22/24 10/22/24 History venlafaxine 75 mg capsule,extended 75 mg PO DAILY 10/22/24 10/22/24 History release 24 hr Allergy/AdvReac Type Severity Reaction Status Date / Time Sulfa (Sulfonamide Allergy Unknown Verified 10/22/24 15:54 Antibiotics) Family History Mother Heart disease Surgical History Right arm and ankle Left elbow ORIF Social History Smoking Status: Former smoker ROS ROS Narrative 10 systems were reviewed with pertinent positives as noted in the HPI above. Physical Exam Const alert, oriented x3 and no apparent distress Constitutional Narrative: Family is present at the bedside. General Appearance: cooperative HEENT normocephalic, head/scalp atraumatic and moist oral mucous membranes Eyes PERRL, EOMs intact bilaterally and conjunctivae normal Neck supple General: trachea midline Chest inspection of chest normal Resp normal respiratory effort and no use of accessory muscles Auscultation: diminished lung sounds; Negative for rales, rhonchi or wheezes Cardio regular rate and regular rhythm GI normal to inspection, nondistended, normoactive bowel sounds Extremity no clubbing, cyanosis or edema Skin no rashes or lesions noted Neuro CN's II-XII intact bilaterally, moves all extremities and no focal motor deficits Psych cooperative and affect normal Lab / Micro Data 10/23/24 05:25 10/23/24 05:25 Labs: Laboratory Results - last 24 hr 10/22/24 16:55: WBC 12.5 H, RBC 3.95 L, Hgb 12.2 L, Hct 37.1 L, MCV 93.9, MCH 30.9, MCHC 32.9, RDW Std Deviation 45.9 H, RDW Coeff of Salvador 13.3, Plt Count 215, MPV 9.2, Immature Gran % (Auto) 0.400, Neut % (Auto) 80.5 H, Lymph % (Auto) 10.0 L, Otero % (Auto) 8.1, Eos % (Auto) 0.6, Baso % (Auto) 0.4, Absolute Neuts (auto) 10.0 H, Absolute Lymphs (auto) 1.25, Nucleated RBC % 0, Sodium 136, Potassium 4.0, Chloride 102, Carbon Dioxide 29.0, Anion Gap 6, BUN 13, Creatinine 1.02, Estim Creat Clear Calc 47.67, Est GFR (MDRD) Af Amer 91, Est GFR (MDRD) Non-Af 75, BUN/Creatinine Ratio 12.7, Glucose 86, Calcium 9.2, Troponin I High Sens 7, B-Natriuretic Peptide 63.0, PSA Screen 2.44, TSH 0.845 10/22/24 22:00: Urine Color Yellow, Urine Clarity Clear, Urine pH 7.0, Ur Specific [place] 1.005, Urine Protein 15 H, Urine Glucose (UA) Normal, Urine Ketones 5 H, Urine Occult Blood 25 H, Urine Nitrite Negative, Urine Bilirubin Negative, Urine Urobilinogen Normal, Ur Leukocyte Esterase Negative, Urine RBC 5-10 SEEN, Urine WBC 0 SEEN, Ur Squamous Epith Cells 0 SEEN, Urine Bacteria 0 SEEN, Urine Mucus 0 SEEN 10/23/24 05:25: WBC 9.5, RBC 3.42 L, Hgb 10.5 L, Hct 32.5 L, MCV 95.0 H, MCH 30.7, MCHC 32.3, RDW Std Deviation 46.5 H, RDW Coeff of Salvador 13.2, Plt Count 212, MPV 9.5, Immature Gran % (Auto) 0.300, Neut % (Auto) 90.4 H, Lymph % (Auto) 7.0 L, Otero % (Auto) 2.2, Eos % (Auto) 0.0, Baso % (Auto) 0.1, Absolute Neuts (auto) 8.6 H, Absolute Lymphs (auto) 0.67 L, Nucleated RBC % 0, Sodium 138, Potassium 4.1, Chloride 106, Carbon Dioxide 28.0, Anion Gap 4 L, BUN 12, Creatinine 0.83, Estim Creat Clear Calc 59.54, Est GFR (MDRD) Af Amer 115, Est GFR (MDRD) Non-Af 95, BUN/Creatinine Ratio 14.4, Glucose 150 H, Calcium 8.6, Phosphorus 3.2, Magnesium 2.1, Total Bilirubin 0.40, AST 22, ALT 14 L, Alkaline Phosphatase 52, Total Protein 6.3 L, Albumin 2.5 L, Globulin 3.8, Albumin/Globulin Ratio 0.7 L, Rheumatoid Factor < 10.0, DEON-1 Antibody TNP, SS-A/Ro IgG Antibody TNP, SS-B/La IgG Antibody TNP, Sm (Vera) Antibody TNP, BANDAGE WRAPPING MACHINE OPERATOR Antibody TNP, Antichromatin Antibodies TNP, Centromere B Antibody TNP Micro: Microbiology 10/22/24 20:55 Mucosa - Nasopharyngeal Respiratory Panel (PCR) - Final 10/22/24 22:00 Urine, Clean Catch Legionella Antigen - Final 10/22/24 22:00 Urine, Clean Catch Streptococcus pneumoniae Antigen (M - Final ABG Data ABG results: ABG 10/22/24 21:17 Specimen Type ART Sample Site R Brach pH 7.41 Bicarbonate Actual 28.3 H Total CO2 30 Base Excess 4 H O2 Saturation 94 L O2 % 21.0 ABG pCO2 44.7 ABG pO2 71 L Arvin Test Positive O2 Delivery Device Room Air Vent Mode Not entered Imaging Radiology Impression Chest X-Ray 10/22/24 17:00 IMPRESSION: 1. Ill-defined patchy airspace opacification within the right lower lung zone, which is nonspecific but may be seen in infectious/inflammatory pneumonia. 2. COPD. Reading Location: [id number] Chest CTA 10/22/24 17:46 IMPRESSION: 1. No evidence of acute pulmonary emboli. 2. Bilateral ground-glass opacities with bronchiectasis and honeycombing, most compatible with interstitial pulmonary fibrosis such as combined pulmonary fibrosis and emphysema or NSIP. Additional considerations include atypical pneumonia. Clinical and laboratory correlation recommended. 3. Moderate emphysema. 4. Small lobular left upper lobe pulmonary nodule. Correlation with prior CT chest imaging is recommended if available. If no imaging available, recommend follow-up CT chest in 6-12 months is recommended. 5. Moderate coronary artery calcifications. One or more dose reduction techniques were used (e.g., Automated exposure control, adjustment of the mA and/or kV according to patient size, use of iterative reconstruction technique). Reading Location: [id number] Charges/Coding Visit Charges Inpatient E&M: 03561 Init Hosp L2
--- NOTE | 2024-10-23 12:25 | CASEMGMT ---
RN CM Face to Face with patient for initial transition planning/care coordination assessment. RN CM introduced self and role at [facility]. Patient lying in bed, alert and oriented. Patient willing to participate in assessment and is able to answer all questions appropriately. Care providers, pharmacy, and demographics verified. Strata: 1 PCP: Ernestina Specialists: Favian Renee social work professor; katt Kirkpatrick Preferred Pharmacy: [facility] Retail Insurance: [facility] Prescription Benefit: none Living Will/HPOA: none LNOK: , son, daughter Living Arrangements: Patient lives with in a single story home with no steps to enter. Patient is independent at home. Transportation: driving service DME/HHC: Patient states he cane, crutches, owns his own concentrator, nebuilzer, and pulse ox at home. No previous HHC or SNF. Patient prefers [facility] for portability if needed. Patient wishes to discharge home, denies need for home health at this time. Patient states he has no further needs or concerns at this time. CM to follow for discharge planning needs that may arise. Disposition Plan: Patient to discharge home with family support and follow-up plans in place. Karon GARRISON, RN, CM
--- NOTE | 2024-10-23 16:24 | DCINST_ITS ---
Discharge Instructions Diet Discharge Diet: No restrictions DC O2, CPAP, BIPAP needs RN Home O2 Qualification: Home O2 Qualification: Is the patient on home oxygen No 10/23/24 16:12 Home O2 Qualification: AT REST 1- Pulse Ox at rest 96 10/23/24 16:12 Home O2 Qualification: WITH AMBULATION 1- Pulse Ox with ambulation 90 10/23/24 16:12 1- Oxygen Flow Rate with 0 10/23/24 16:12 ambulation Home O2 Discharge instructions: No Dressing / Incision Discharge Activity: Return to Normal Activity Weight Bearing Status: Full weight bearing Follow Up Care Test Results: Test results from this visit will be discussed in further detail at your follow- up appointment, if applicable. Discharge Plan Admission Admit Date/Time: 10/22/24 20:19 Primary Reason for Your Visit: Exacerbation of asthma/COPD Attending Provider: Maninder Morse Primary Care Provider: Yoel Do Consulting Providers: Pk Lowery Discharge Orders/Prescriptions Prescriptions: New prednisone 20 mg tablet 40 mg PO DAILY Qty: 14 0RF Rx Instructions: start on 10/24/24 Continued mirtazapine 15 mg tablet 15 mg PO QHS ipratropium bromide 21 mcg (0.03 %) spray,non-aerosol 2 spray intranasal BID-TID PRN (Reason: allergy symptoms) Qty: 30 6RF Rx Instructions: administer into each nostril potassium chloride 10 mEq tablet extended release 10 meq PO DAILY Qty: 30 3RF Patient Comments: PT STATES OCCASIONALLY meloxicam 15 mg tablet 15 mg PO DAILY alprazolam 1 mg tablet 0.5 mg PO QHS venlafaxine 75 mg capsule,extended release 24hr 75 mg PO DAILY albuterol sulfate 90 mcg/actuation HFA aerosol inhaler 2 inh inhalation Q6H PRN (Reason: shortness of breath or wheezing) Qty: 8.5 11RF Breztri Aerosphere 160-9-4.8 mcg/actuation HFA aerosol inhaler 2 inh inhalation BID Qty: 10.7 12RF Referrals / Follow Up: Paras Renee DO [Med Staff - Active Staff] - See Referral Note (as scheduled) Yoel Do DO [Primary Care Provider] - Disposition Disposition (needs filled in before D/C Order can be placed): Home, Self Care
--- NOTE | 2024-10-23 16:40 | DS.PCM_ITS ---
Providers Date of Admission: 10/22/24 Date of Discharge: 10/23/24 Primary Care Physician: Dr. Yoel Do, DO Consultations 10/22/24 21:13 Consult: Canvas Worker / Pulmonary Medicine Routine Consulting Provider: Intensivists/Pulmonary Med Reason for Consult: Pneumonia, AECOPD, IPF and Respiratory Insufficiency. EMERGENT Consult: No MD Notified: Yes Date Notified: 10/22/24 Time Notified: 22:39 Method of Notification: Answering Service Reason For Visit: PNEUMONIA, AE COPD, IPF & RESPIRATORY Diagnosis Discharge Diagnosis (1) Asthma-COPD overlap syndrome: Status: Chronic Code(s): J44.89 - Other specified chronic obstructive pulmonary disease Plan 1. Asthma/COPD overlap syndrome with exacerbation #2 chronic depression #3 left upper lobe pulmonary nodule Medications at Discharge Home Medications mirtazapine 15 mg tablet 15 mg PO QHS mental health 08/13/22 ipratropium bromide 21 mcg (0.03 %) nasal spray 2 spray intranasal BID-TID PRN allergy symptoms #30 mL 11/20/22 potassium chloride 10 mEq tablet,extended release 10 meq PO DAILY supplement #30 tabs 11/20/22 albuterol sulfate 90 mcg/actuation aerosol inhaler 2 inh inhalation Q6H PRN shortness of breath or wheezing #8.5 grams 09/24/23 budesonide 160 mcg-glycopyr 9 mcg-formot 4.8 mcg/actuation HFA inhaler (Breztri Aerosphere) 2 inh inhalation BID breathing #10.7 grams 08/24/24 alprazolam 1 mg tablet 0.5 mg PO QHS sleep 10/22/24 meloxicam 15 mg tablet 15 mg PO DAILY pain 10/22/24 venlafaxine 75 mg capsule,extended release 24 hr 75 mg PO DAILY mental health 10/22/24 prednisone 20 mg tablet 40 mg (2 x 20 mg) PO DAILY #14 tabs 10/23/24 Hospital Course Operations None Procedures None Summary of Care Provided Minutes Spent on Discharge: 31 Hospital Course: This 74-year-old white male was seen in the emergency room at [facility] with a chief complaint of shortness of breath and wheezing. Workup in the emergency room included a CT of the chest that revealed no evidence of pulmonary emboli but did show bilateral groundglass opacities with bronchiectasis and honeycombing most compatible with interstitial pulmonary fibrosis. There was noted to be a left upper lobe pulmonary nodule present. Workup in the emergency room showed an elevated white blood cell count of 12.5, hemoglobin was 12.2, patient's pulse ox on room air was 91%, when he was ambulated, he became dyspneic and his pulse ox fell to 85%. Patient was admitted to PCU and placed on aerosol treatments, given IV antibiotics, and given IV Solu-Medrol, he was seen in consultation by pulmonary medicine who recommended additional testing be ordered and did not feel the patient needed antibiotic treatment. Patient was checked prior to discharge and did not require oxygen while ambulating or at rest. On 10/23/2024, patient was seen and examined: On examination he appeared in good health and spirits. Vital signs as documented. Skin warm and dry and without overt rashes. Neck without JVD, neck was supple, trachea midline, thyroid was normal. Lungs-scattered inspiratory rales were noted over the patient's lung bases, normal air movement was noted. Heart exam notable for regular rhythm, normal sounds and absence of murmurs, rubs or gallops. Abdomen unremarkable and without evidence of organomegaly, masses, or abdominal aortic enlargement. Bowel sounds are present, abdomen is not distended. Extremities nonedematous, no cyanosis was noted, no clubbing was noted. Neuro: Cranial nerves II through XII are grossly intact, no focal motor deficits were noted, sensation to light touch and pinprick intact, motor exam 5/5 throughout. Psych: Patient is alert and oriented x3, he does not appear anxious or depressed, he does not appear agitated. Patient appears stable for discharge home on 10/23/2024. Weight / BMI Weight Weight: 55.6 kg Body Mass Index (BMI) 19.8 ABG / Lab / Microbiology Data 10/23/24 05:25 10/23/24 05:25 Laboratory: Laboratory Results - last 24 hr 10/22/24 16:55: WBC 12.5 H, RBC 3.95 L, Hgb 12.2 L, Hct 37.1 L, MCV 93.9, MCH 30.9, MCHC 32.9, RDW Std Deviation 45.9 H, RDW Coeff of Salvador 13.3, Plt Count 215, MPV 9.2, Immature Gran % (Auto) 0.400, Neut % (Auto) 80.5 H, Lymph % (Auto) 10.0 L, Cabell % (Auto) 8.1, Eos % (Auto) 0.6, Baso % (Auto) 0.4, Absolute Neuts (auto) 10.0 H, Absolute Lymphs (auto) 1.25, Nucleated RBC % 0, Sodium 136, Potassium 4.0, Chloride 102, Carbon Dioxide 29.0, Anion Gap 6, BUN 13, Creatinine 1.02, Estim Creat Clear Calc 47.67, Est GFR (MDRD) Af Amer 91, Est GFR (MDRD) Non-Af 75, BUN/Creatinine Ratio 12.7, Glucose 86, Calcium 9.2, Troponin I High Sens 7, B-Natriuretic Peptide 63.0, PSA Screen 2.44, TSH 0.845 10/22/24 22:00: Urine Color Yellow, Urine Clarity Clear, Urine pH 7.0, Ur Specific Paterson 1.005, Urine Protein 15 H, Urine Glucose (UA) Normal, Urine Ketones 5 H, Urine Occult Blood 25 H, Urine Nitrite Negative, Urine Bilirubin Negative, Urine Urobilinogen Normal, Ur Leukocyte Esterase Negative, Urine RBC 5-10 SEEN, Urine WBC 0 SEEN, Ur Squamous Epith Cells 0 SEEN, Urine Bacteria 0 SEEN, Urine Mucus 0 SEEN 10/23/24 05:25: WBC 9.5, RBC 3.42 L, Hgb 10.5 L, Hct 32.5 L, MCV 95.0 H, MCH 30.7, MCHC 32.3, RDW Std Deviation 46.5 H, RDW Coeff of Salvador 13.2, Plt Count 212, MPV 9.5, Immature Gran % (Auto) 0.300, Neut % (Auto) 90.4 H, Lymph % (Auto) 7.0 L, Cabell % (Auto) 2.2, Eos % (Auto) 0.0, Baso % (Auto) 0.1, Absolute Neuts (auto) 8.6 H, Absolute Lymphs (auto) 0.67 L, Nucleated RBC % 0, Sodium 138, Potassium 4.1, Chloride 106, Carbon Dioxide 28.0, Anion Gap 4 L, BUN 12, Creatinine 0.83, Estim Creat Clear Calc 59.54, Est GFR (MDRD) Af Amer 115, Est GFR (MDRD) Non-Af 95, BUN/Creatinine Ratio 14.4, Glucose 150 H, Calcium 8.6, Phosphorus 3.2, Magnesium 2.1, Total Bilirubin 0.40, AST 22, ALT 14 L, Alkaline Phosphatase 52, Total Protein 6.3 L, Albumin 2.5 L, Globulin 3.8, Albumin/Globulin Ratio 0.7 L, Rheumatoid Factor < 10.0, DEON-1 Antibody TNP, SS-A/Ro IgG Antibody TNP, SS-B/La IgG Antibody TNP, Sm (Vera) Antibody TNP, CHEMICAL MACHINE TENDER Antibody TNP, Antichromatin Antibodies TNP, Centromere B Antibody TNP Microbiology: Microbiology 10/22/24 20:55 Mucosa - Nasopharyngeal Respiratory Panel (PCR) - Final 10/22/24 22:00 Urine, Clean Catch Legionella Antigen - Final 10/22/24 22:00 Urine, Clean Catch Streptococcus pneumoniae Antigen (M - Final ABG: ABG 10/22/24 21:17 Specimen Type ART Sample Site R Brach pH 7.41 Bicarbonate Actual 28.3 H Total CO2 30 Base Excess 4 H O2 Saturation 94 L O2 % 21.0 ABG pCO2 44.7 ABG pO2 71 L Arvin Test Positive O2 Delivery Device Room Air Vent Mode Not entered Radiography Diagnostic Testing: Radiology Impression Chest X-Ray 10/22/24 17:00 IMPRESSION: 1. Ill-defined patchy airspace opacification within the right lower lung zone, which is nonspecific but may be seen in infectious/inflammatory pneumonia. 2. COPD. Reading Location: [facility] Chest CTA 10/22/24 17:46 IMPRESSION: 1. No evidence of acute pulmonary emboli. 2. Bilateral ground-glass opacities with bronchiectasis and honeycombing, most compatible with interstitial pulmonary fibrosis such as combined pulmonary fibrosis and emphysema or NSIP. Additional considerations include atypical pneumonia. Clinical and laboratory correlation recommended. 3. Moderate emphysema. 4. Small lobular left upper lobe pulmonary nodule. Correlation with prior CT chest imaging is recommended if available. If no imaging available, recommend follow-up CT chest in 6-12 months is recommended. 5. Moderate coronary artery calcifications. One or more dose reduction techniques were used (e.g., Automated exposure control, adjustment of the mA and/or kV according to patient size, use of iterative reconstruction technique). Reading Location: [facility] D/C Instructions Discharge Diet: No restrictions Weight Bearing Status: Full weight bearing DC O2, CPAP, BIPAP Needs RN Home O2 Qualification: Home O2 Qualification: Is the patient on home oxygen No 10/23/24 16:12 Home O2 Qualification: AT REST 1- Pulse Ox at rest 96 10/23/24 16:12 Home O2 Qualification: WITH AMBULATION 1- Pulse Ox with ambulation 90 10/23/24 16:12 1- Oxygen Flow Rate with 0 10/23/24 16:12 ambulation Home O2 Discharge instructions: No Meaningful Use Info Meaningful Use Meaningful Use Diagnoses (Choose all that apply): None applicable Ischemic Stroke Statin Dosing Therapy Reference: STATIN DOSE THERAPY REFERENCE: * Patients > 75 years receive moderate or high dose statin therapy. * Patients 75 years or YOUNGER should receive HIGH intensity statin dose unless contraindicated. You will be required to document reason for non-treatment if statin daily dose does not meet guidelines. HIGH DOSE STATIN THERAPY DAILY Atorvastatin > than or = to 40 mg Rosuvastatin > than or = to 20 mg Amlodipine + Atorvastatin > than or = to 2.5/40 mg Ezetimibe + Simvastatin 10/80 mg Simvastatin 80mg Discharge Plan Admission Admit Date/Time: 10/22/24 20:19 Primary Reason for Your Visit: Exacerbation of asthma/COPD Attending Provider: Maninder Morse Primary Care Provider: Yoel Do Consulting Providers: Pk Lowery Discharge Orders/Prescriptions Prescriptions: New prednisone 20 mg tablet 40 mg PO DAILY Qty: 14 0RF Rx Instructions: start on 10/24/24 Continued mirtazapine 15 mg tablet 15 mg PO QHS ipratropium bromide 21 mcg (0.03 %) spray,non-aerosol 2 spray intranasal BID-TID PRN (Reason: allergy symptoms) Qty: 30 6RF Rx Instructions: administer into each nostril potassium chloride 10 mEq tablet extended release 10 meq PO DAILY Qty: 30 3RF Patient Comments: PT STATES OCCASIONALLY meloxicam 15 mg tablet 15 mg PO DAILY alprazolam 1 mg tablet 0.5 mg PO QHS venlafaxine 75 mg capsule,extended release 24hr 75 mg PO DAILY albuterol sulfate 90 mcg/actuation HFA aerosol inhaler 2 inh inhalation Q6H PRN (Reason: shortness of breath or wheezing) Qty: 8.5 11RF Breztri Aerosphere 160-9-4.8 mcg/actuation HFA aerosol inhaler 2 inh inhalation BID Qty: 10.7 12RF Referrals / Follow Up: Paras Renee DO [Med Staff - Active Staff] - See Referral Note (as scheduled) Yoel Do DO [Primary Care Provider] - Disposition Disposition (needs filled in before D/C Order can be placed): Home, Self Care Charges/Coding Visit Charges Inpatient E&M: 39139 Disch Hosp >30min
[2024-10-26 13:07] LABS: ANTINUCLEAR ANTIBODIES DIRECT Negative (Negative)
[2024-10-26 15:08] LABS: CCP IgG Antibodies 1 units (0-19); Cytoplasmic Ab (C-ANCA) <1:20 titer (Neg:<1:20); Perinuclear Ab (P-ANCA) <1:20 titer (Neg:<1:20)
== END 2024-10-23 17:15 | disposition home or self-care (01) | DRG 191 ==
LOC: ED 19:43 → PCU 20:45
PROVIDERS: Internal Medicine Critical Care Medicine; Admitting Provider Internal Medicine; Emergency Provider Emergency Medicine; PCP Family Medicine; Referring Provider Emergency Medicine; Visit Provider Internal Medicine
DX: J44.1 Chronic obstructive pulmonary disease with (acute) exacerbation (principal); J47.0 Bronchiectasis with acute lower respiratory infection; J84.112 Idiopathic pulmonary fibrosis; M19.90 Unspecified osteoarthritis, unspecified site; F41.8 Other specified anxiety disorders; I25.10 Atherosclerotic heart disease of native coronary artery without angina pectoris; J47.9 Bronchiectasis, uncomplicated; J45.909 Unspecified asthma, uncomplicated; R39.198 Other difficulties with micturition; Z79.1 Long term (current) use of non-steroidal anti-inflammatories (NSAID); R91.1 Solitary pulmonary nodule; Z87.891 Personal history of nicotine dependence; J44.89 Other specified chronic obstructive pulmonary disease
CPT/HCPCS: 36415; 36600; 71045; 71275; 80048; 80053; 81001; 82803; 83735; 83880; 84100; 84153; 84443; 84484; 85025; 86037; 86038; 86200; 86225; 86235; 86431; 87040; 87449; 87633; 93005; 94640; 94668; 97802; 99252; 99285; Q9967; A4216; G0103; G0463

== ENCOUNTER → 2024-12-22 | Outpatient (CLI) | payer SELFPAY, OTHER ==
--- NOTE | 2024-12-22 07:51 | CT_ITS ---
PROCEDURE: CHEST WITHOUT CONTRAST 12/22/2024 REASON FOR EXAM: GROUNDGLASS TECHNIQUE: Chest CT without contrast. Coronal and Sagittal reconstruction series were provided. One or more dose reduction techniques were used (e.g., Automated exposure control, adjustment of the mA and/or kV according to patient size, use of iterative reconstruction technique RADIATION DOSE SUMMARY: CTDlvol: 6.53 mGy DLP: 241.58 mGycm COMPARISON: 10/22/2024 FINDINGS: Note that evaluation of the vasculature, baljeet, and soft tissues is limited in the absence of IV contrast. Heart/pericardium: Mild but multivessel coronary atherosclerosis and/or stents. Trace aortic annular calcification. Aorta: Mild/moderate calcific atherosclerosis. Pulmonary arteries: Normal in caliber. Lymph nodes: Chronic granulomatous disease. Prominent but technically nonenlarged precarinal node, 9 mm short axis. Lungs/pleura: Emphysema. Biapical pleural/parenchymal scarring. Mild dependent atelectasis/scarring. Improved dependent airspace disease. Similar 4 mm LEFT lower lobe nodule (series 2, image 61). Similar 9 x 8 mm LEFT upper lobe nodule difficult to differentiate from adjacent bronchovascular structures (series 2, image 57). New 4 mm LEFT upper lobe nodule (image 51). Similar additional 3 mm LEFT upper lobe nodule (image 55). Granulomas.. Airways: Similar central bronchial wall thickening. Chest wall: Unremarkable. Upper abdomen: Chronic granulomatous disease.. Musculoskeletal: Marked demineralization. Similar multilevel thoracic compression deformities. Multilevel spondylosis. Mild scoliosis. Similar subacute to chronic nondisplaced LEFT rib fractures.. CT/Chest without Contrast IMPRESSION: 1. Improved dependent bilateral lower lobe airspace disease with minimal residu al likely atelectasis/scarring. 2. Emphysema with nonspecific pulmonary nodules as detailed, largest 9 mm in th e LEFT upper lobe unchanged from recent exam, including a new 4 mm LEFT upper lobe nodule. Recommend CT chest in 3 months pe r the Fleischner Society recommendations, presuming no history of known malignancy or immunosuppression. Additionally gi tina emphysema, consider ongoing lung cancer screening per the below. 3. Similar mild bronchial wall thickening which may be smoking-related or indic ative of bronchitis. 4. Additional description as above. The USPSTF recommends annual screening for lung cancer with low-dose computed t omography (LDCT) in adults aged 50 to 80 years who have a 20 pack-year smoking history and currently smoke or have quit within the past 15 years. Reading Location: [id number]
== END | disposition home or self-care (01) ==
LOC: CT 07:51
PROVIDERS: PCP Family Medicine; Referring Provider Nurse Practitioner Acute Care; Visit Provider Nurse Practitioner Acute Care
DX: R93.89 Abnormal findings on diagnostic imaging of other specified body structures (principal)
CPT/HCPCS: 71250

== ENCOUNTER → 2025-03-23 | Outpatient (CLI) | payer SELFPAY, OTHER ==
--- NOTE | 2025-03-23 17:34 | CT_ITS ---
PROCEDURE: CHEST WITHOUT CONTRAST 03/23/2025 REASON FOR EXAM: MULTIPLE LUNG NODULES TECHNIQUE: Chest CT without contrast. Coronal and Sagittal reconstruction series were provided. One or more dose reduction techniques were used (e.g., Automated exposure control, adjustment of the mA and/or kV according to patient size, use of iterative reconstruction technique RADIATION DOSE SUMMARY: CTDlvol: 6.31 mGy DLP: 233.53 mGycm COMPARISON: Prior study dated December 22, 2024. FINDINGS: Hardware: None Lymph nodes: No suspicious mediastinal or hilar lymph nodes. Calcified left hilar lymph nodes. Scattered calcified granulomas in the left hemithorax. Heart and Vasculature: Coronary artery calcifications are noted. Atherosclerotic calcifications of the thoracic aorta. Thoracic aorta and pulmonary arteries have normal contours; noncontrast technique limits evaluation. Coronary Artery Calcifications: Present Lungs and Airways: Mild emphysematous changes are present. Stable apical scarring as well as linear scarring at the left lung base. Scattered left calcified granulomas. The previously seen 9 mm nodule in the left upper lobe has decreased in size. It presently measures 8 mm. Pleura: No pleural effusion. Upper Abdomen: Unremarkable Bones: Increased kyphosis. Almost complete collapse of a mid dorsal vertebrae. Loss of height of multiple thoracic vertebrae. CT/Chest without Contrast IMPRESSION: Coronary artery calcification (CAC) is is present Stable emphysematous changes. Calcified left hilar lymph nodes and left granulomas. Interval decrease in size of the previously seen 9 mm nodule in the left upper lobe. Reading Location: [place] [id number]
== END | disposition home or self-care (01) ==
PROVIDERS: PCP Family Medicine; Referring Provider Internal Medicine Critical Care Medicine; Visit Provider Internal Medicine Critical Care Medicine
DX: R91.8 Other nonspecific abnormal finding of lung field (principal)
CPT/HCPCS: 71250

== ENCOUNTER 2025-04-07 21:29 | Emergency (ER) | payer OTHER, SELFPAY ==
[2025-04-07 21:29] VITALS: BP 146/100; PULSE 115; RESP 22; TEMP 37.1; O2SAT 88; BMI 20.1
[2025-04-07 21:31] VITALS: BP 147/86; PULSE 94; RESP 18; RESP 20; TEMP 37.1; O2SAT 93; O2SAT 99
--- NOTE | 2025-04-07 21:31 | EKG12_ITS ---
Test Reason : CP/SOB Blood Pressure : */* mmHG Vent. Rate : 83 BPM Atrial Rate : 83 BPM P-R Int : 126 ms QRS Dur : 96 ms QT Int : 356 ms P-R-T Axes : 81 70 70 degrees QTcB Int : 418 ms Normal sinus rhythm with sinus arrhythmia Normal ECG Confirmed by QUE MCCARTHY, TY ([id number]), editor city ROB WHITE ([id number]) on 04/08/2025 8:43:03 AM Referred By: DEN Confirmed By: TY GREY MD
--- NOTE | 2025-04-07 21:39 | PCA ---
no old ekg
--- NOTE | 2025-04-07 21:41 | RAD_ITS ---
PROCEDURE: CHEST 1 VIEW (PORTABLE) 04/07/2025 REASON FOR EXAM: CHEST PAIN TECHNIQUE: Frontal view of the chest. COMPARISON: CT 03/24/2025 FINDINGS: Lordotic positioning. Normal heart size. Well inflated lungs. No consolidation, effusion, or pneumothorax. RAD/Chest 1 View (Portable) IMPRESSION: No acute chest findings Reading Location: [place] [id number]
[2025-04-07 21:46] VITALS: O2SAT 99
[2025-04-07 21:50] LABS: Hematocrit 39.9 % (40-54); Hemoglobin 12.9 g/dL (13.0-16.5); Immature Granulocytes Count 0.020 X10^3/uL (0.0-0.0); Mean Corp Hgb Conc 32.3 g/dL (32-36); Mean Corpuscular Volume 93.9 fL (80-94); Mean Platelet Vol. 8.9 fl (6.2-12.0); NRBC Flagged by Analyzer 0 % (0-5); Platelet Count 251 K/mm3 (150-450); RBC Distribution Width CV 13.6 % (11.6-14.6); RBC Distribution Width SD 46.7 fl (35.1-43.9); Red Blood Count 4.25 M/mm3 (4.6-6.2); White Blood Count 6.9 K/mm3 (4.4-11.0)
[2025-04-07 22:06] VITALS: PULSE 82; RESP 16
[2025-04-07 22:06] LABS: Anion Gap 11 (5-15); BUN 17 mg/dL (4-19); BUN/Creat Ratio 17.1 RATIO (10-20); Calcium,Total 9.6 mg/dL (7.6-11.0); Carbon Dioxide 27.3 mmol/L (21.0-32.0); Chloride 102 mmol/L (98-108); Estimated Creatinine Clearance 47.08 ml/min (50-250); Glucose 99 mg/dL (70-99); Potassium 4.2 mmol/L (3.3-5.1); Troponin T High Sensitivity 28 ng/L (<=22)
--- NOTE | 2025-04-07 22:13 | EDS_ITS ---
HPI History of Present Illness Chief Complaint: Chest Pain Informant: patient Onset/Context/Timing Onset: Hours Activity at onset: gradual Timing: Intermittent Quality: Positive for Dull Location: Left Parasternal and Left Chest Worsened By: Nothing Relieved By: Nothing Associated Symptoms: Positive for Dyspnea; Negative for Nausea, Vomiting, Diaphoresis, Cough, Fever, Lightheadedness, Acid Reflux or Palpitations Narrative Narrative: Patient presents with shortness of breath and chest pain that began tonight. Patient states a few hours prior to arrival. Patient states he took his albuterol inhaler at home with no improvement. Patient admits to some dull pain over the left side of chest. Patient states nothing makes it worse and nothing makes it better. Patient denies any cough. Patient denies any nausea or vomiting. Patient denies any diaphoresis. Patient denies any fevers or chills. CVD Risk Factors: Negative for Hypertension, Diabetes, Hypercholesterolemia, Family History 1' </=55 or Smoking PE Risk Factors: Negative for Recent Travel/Surgery, Recent Immobilization, Prior DVT or PE, Cancer or OCP + Smoking + >/=35 PFSH [facility] Medical History Difficulty urinating Respiratory insufficiency Exposure to environmental toxic substances IPF (idiopathic pulmonary fibrosis) Bronchiectasis COPD with acute exacerbation Nocturnal hypoxia History of tobacco use Perennial non-allergic rhinitis Stage 3 severe chronic obstructive pulmonary disease by Global Initiative for Chronic Obstructive Lung Disease classification Chronic obstructive asthma (with obstructive pulmonary disease) Allergic rhinitis due to allergen Left wrist Home Medications ?Medication ?Instructions ?Recorded ?Last Taken ?Type mirtazapine 15 mg tablet 15 mg PO QHS mental health 1 10/14/21 10/21/24 History ipratropium bromide 21 mcg (0.03 2 spray intranasal BI D-TID PRN 11/20/22 Unknown Rx %) nasal spray allergy symptoms #30 mL potassium chloride 10 mEq 10 meq PO DAILY supplement # 30 tabs 11/20/22 Unknown Rx tablet,extended release alprazolam 1 mg tablet 0.5 mg PO QHS sleep 10/22/24 10/21/24 History venlafaxine 75 mg capsule,extended 75 mg PO DAILY [facility] 10/22/24 10/22/24 History release 24 hr albuterol sulfate 90 mcg/actuation 2 inh inhalation Q6 H PRN shortness 11/23/24 Unknown Rx aerosol inhaler of breath or wheezing #8.5 g shalonda cetirizine 10 mg tablet 10 mg PO DAILY allergy sympt oms 11/23/24 Unknown Rx #90 tabs fluticasone propionate 50 2 spray intranasal DAILY #16 grams 11/23/24 Unknown Rx mcg/actuation nasal spray,suspension budesonide 160 mcg-glycopyr 9 2 inh inhalation BID monika athing 03/18/25 Unknown Rx mcg-formot 4.8 mcg/actuation HFA #10.7 grams inhaler (Breztri Aerosphere) Allergy/AdvReac Type Severity Reaction Status Date / Time Sulfa (Sulfonamide Allergy Unknown Verified 04/07/25 21:29 Antibiotics) Family History Mother Heart disease Surgical History Right arm and ankle Left elbow ORIF Social History Smoking Status: Former smoker ROS ROS ED Constitutional Constitutional ED: Denies chills or fever(s) Eyes Eyes: Denies blurry vision or change in vision ENT ENT ED: Denies rhinorrhea or sore throat Cardiovascular Cardiovascular: Reports chest pain; Denies palpitations Respiratory/Chest Respiratory/Chest: Reports dyspnea; Denies cough Gastrointestinal Gastrointestinal: Denies nausea or vomiting Genitourinary Genitourinary ED: Denies dysuria or hematuria Musculoskeletal Musculoskeletal: Denies back pain or neck pain Integumentary Denies abscess or rash Neurologic Neurologic: Denies headache(s) or weakness Allergic/Immunologic Allergic/Immunologic ED: Denies mouth swelling or urticaria EXAM Physical Exam Const Vital Signs: 04/07/25 21:29 04/07/25 21:31 04/07/25 21:31 Temperature 98.7 F 98.7 F Temperature Source Oral Oral Pulse Rate 115 H 94 Respiratory Rate 22 H 18 20 H Respiratory Effort Blood Pressure 146/100 H 147/86 H Blood Pressure Mean 115 106 Pulse Ox 88 93 99 Oxygen Delivery Method Room Air Nasal Cannula Nasal Cannula Oxygen Flow Rate (L/min) 2 2 04/07/25 21:31 04/07/25 21:46 04/07/25 22:06 Temperature Temperature Source Pulse Rate 82 Respiratory Rate 16 Respiratory Effort Short of Breath Blood Pressure Blood Pressure Mean Pulse Ox 99 Oxygen Delivery Method Nasal Cannula Nasal Cannula Oxygen Flow Rate (L/min) 2 2 04/07/25 22:31 04/07/25 22:59 04/08/25 00:00 Temperature 98.7 F 98.7 F Temperature Source Oral Oral Pulse Rate 85 72 73 Respiratory Rate 19 H 19 H 18 Respiratory Effort Blood Pressure 131/85 H 129/77 H 128/71 H Blood Pressure Mean 100 94 90 Pulse Ox 98 97 99 Oxygen Delivery Method Nasal Cannula Nasal Cannula Room Air Oxygen Flow Rate (L/min) 2 2 04/08/25 00:46 Temperature 97.9 F Temperature Source Pulse Rate 75 Respiratory Rate 14 Respiratory Effort Blood Pressure 128/71 H Blood Pressure Mean 90 Pulse Ox 98 Oxygen Delivery Method Oxygen Flow Rate (L/min) Positive well nourished and well developed General Appearance ED: well developed and NAD HEENT Reports moist mucous membranes Neck supple and no JVD Chest Wall inspection of chest normal and palpation of chest normal Resp normal respiratory effort Auscultation: wheezes scattered wheezes Cardio regular rate and regular rhythm GI soft to palpation, non-tender and non-distended Neuro oriented x3, CN's II-XII intact bilaterally and no sensory deficits noted Sensorium / Orientation: awake and alert Motor Exam: strength 5/5 throughout Psych mental status grossly normal Heart Score History: Slightly/Non-Suspicious ECG: Normal Age: >/= 65 years Risk Factors: No Risk Factors Troponin: >1 - <3 Normal Limit Score: 3 MDM MDM MDM Narrative Medical decision making narrative: Differential gnosis includes pneumonia, bronchitis, congestive heart failure, cardiac dysrhythmia, cardiac ischemia, electrolyte abnormality, and anxiety. EKG will be obtained to assess for cardiac dysrhythmia and cardiac ischemia. Chest x-ray will be obtained to assess for pneumonia or bronchitis. CBC will be obtained to assess for leukocytosis and anemia. Basic metabolic profile will be obtained to assess for electrolyte abnormality and renal function. High- sensitivity troponin will be obtained to assess for cardiac ischemia. 2-hour repeat high-sensitivity troponin will be obtained to assess for ongoing cardiac ischemia. History & Record Review Additional record(s) reviewed:: Prior ED visit and Prior labs Lab Data Attestation: I reviewed the patient's lab results. Lab results narrative: CBC was reviewed. There is a mild anemia with a hemoglobin of 12.9 and hematocrit 39.9. Platelets were normal. White blood cell count was normal. Basic metabolic profile was reviewed and was essentially within normal limits. Initial high-sensitivity troponin was reviewed and was normal at 28. 2-hour repeat high-sensitivity troponin was reviewed and was also normal at 28. Labs: Laboratory Results - last 24 hr 04/07/25 04/07/25 21:42 23:41 WBC 6.9 RBC 4.25 L Hgb 12.9 L Hct 39.9 L MCV 93.9 MCH 30.4 MCHC 32.3 RDW Std Deviation 46.7 H RDW Coeff of [place] 13.6 Plt Count 251 MPV 8.9 Immature Gran % (Auto) 0.300 Neut % (Auto) 50.6 Lymph % (Auto) 31.2 Sutton % (Auto) 12.8 H Eos % (Auto) 4.5 Baso % (Auto) 0.6 Absolute Neuts (auto) 3.5 Absolute Lymphs (auto) 2.16 Nucleated RBC % 0 Sodium 140 Potassium 4.2 Chloride 102 Carbon Dioxide 27.3 Anion Gap 11 BUN 17 Creatinine 1.02 Estim Creat Clear Calc 47.08 L Est GFR (MDRD) Non-Af 76 BUN/Creatinine Ratio 17.1 Glucose 99 Calcium 9.6 Troponin T High Sens 28 H Troponin T Hi Sens 2 Hr 28 H Radiography Diagnostic Testing: Clinical Impression(s) from Imaging Studies Chest X-Ray 04/07/25 21:41 IMPRESSION: No acute chest findings Reading Location: [place] [id number] Portable 1 view chest x-ray was obtained. On my independent interpretation, lung tompkins are clear. There is normal cardiac silhouette. Bony thorax is normal. There is no acute process noted. Radiologist also interpreted the x- ray and agrees. EKG Initial EKG: Attestation: I personally reviewed and interpreted this EKG as follows: Interpretation: Sinus Rhythm (83) and No Acute Injury Pattern Comments: EKG was obtained. On my independent interpretation, it showed a normal sinus rhythm with a rate of 83. ID interval, QRS interval, and QTc intervals were all normal. [place] was normal. There are no acute ST or T wave changes. Prior EKG tracings: available for review Prior: Unchanged (10/22/2024) Treatment and Re-Evaluation :: Patient was given a DuoNeb aerosol here. Patient was given aspirin. Patient was advised of his findings. Patient has a HEART score of 3. Patient was advised that this is low risk for acute cardiac event. Patient felt better after receiving DuoNeb aerosol. Patient was instructed to continue his inhalers as prescribed. Patient was instructed to continue using his nighttime nasal cannula oxygen. Patient was instructed to follow-up with his primary care physician in 5 to 7 days. Patient was instructed to return if worse in any way. Patient understood and was agreeable with the plan. All questions were answered. Discharge Plan Triage Chief Complaint: Chest Pain Other Complaint: Shortness of Breath ED Provider: Doug Duenas Dx/Rx/DC Orders Clinical Impression: Asthma exacerbation, Chronic obstructive asthma (with obstructive pulmonary disease) Instructions: ED Asthma, Acute (Adult) Prescriptions: No Action mirtazapine 15 mg tablet 15 mg PO QHS ipratropium bromide 21 mcg (0.03 %) spray,non-aerosol 2 spray intranasal BID-TID PRN (Reason: allergy symptoms) Qty: 30 6RF Rx Instructions: administer into each nostril potassium chloride 10 mEq tablet extended release 10 meq PO DAILY Qty: 30 3RF Patient Comments: PT STATES OCCASIONALLY fluticasone propionate 50 mcg/actuation spray,suspension 2 spray intranasal DAILY Qty: 16 3RF albuterol sulfate 90 mcg/actuation HFA aerosol inhaler 2 inh inhalation Q6H PRN (Reason: shortness of breath or wheezing) Qty: 8.5 11RF cetirizine 10 mg tablet 10 mg PO DAILY Qty: 90 3RF alprazolam 1 mg tablet 0.5 mg PO QHS venlafaxine 75 mg capsule,extended release 24hr 75 mg PO DAILY Breztri Aerosphere 160-9-4.8 mcg/actuation HFA aerosol inhaler 2 inh inhalation BID Qty: 10.7 12RF Primary Care Provider: Yoel Do Referrals: Yoel Do DO [Primary Care Provider] - 3-5 Days Print Language: Greek Disposition Disposition: Home, Self Care Discharge Date/Time: 04/08/25 00:51
[2025-04-07 22:31] VITALS: BP 131/85; PULSE 85; RESP 19; TEMP 37.1; O2SAT 98
--- OUTSIDE RECORDS SUMMARY | 2025-04-07 22:49 | XMS RPT_ITS | CCD ---
Author Organization [facility] [employer] Care Team Providers Care Patient Account Representative Name Role Phone Sravan Rebollar Unavailable [place] Unavailable Unavailable Ursula Elizabeth N Unavailable Vergara, Elizabeth N Unavailable Talon Vergarassica N Unavailable Ursula Elizabeth N Unavailable BOBO KRISHNA WHEELMAN-C Consulting Unavailable AUGUSTINA ADAMS MD Attending Unavailable AUGUSTINA ADAMS MD Primary Care Unavailable AUGUSTINA ADAMS MD Admitting Unavailable PROVIDER, UNKNOWN Consulting Unavailable Dr. Yoel Do Primary Care Provider Dr. Yoel Do Referring Provider Dr. Eduardo Romo Attending Provider Dr. Eduardo Romo Referring Provider Dr. Eduardo Romo Other Provider Dr. Chris Harrell Attending Provider Dr. Yoel Do Primary Care Provider Dr. Eduardo Romo Referring Provider Dr. Eduardo Romo Other Provider Dr. Chris Harrell Attending Provider Dr. Yoel Do Referring Provider Dr. Eduardo Romo Attending Provider Susan SECURITY TESTER, SECURITY TESTER-C Jackelin Referring Provider [phone] Susan SECURITY TESTER, SECURITY TESTER-C Jackelin Other Provider Dr. Yoel Do DO Primary Care Provider Lorenza HUNTER, Dr. Gunter Referring Provider Lorenza HUNTER, Dr. Gunter Emergency Provider Lowery DO, Dr. Whittington Admit Provider Unavail able Lowery DO, Dr. Whittington Other Provider Unavail able Mini HUNTER, Dr. Dickens Attending Provider Mini HUNTER, Dr. Dickens Other Provider Dr. Paras Renee DO Attending Provider [phone] Dr. Yoel Do DO Referring Provider Susan SECURITY TESTER-C, Jackelin Attending Provider Susan SECURITY TESTER-C, Jackelin Referring Provider Dr. Yoel Do DO Primary Care Provider Susan SECURITY TESTER-C, Jackelin Attending Provider Dr. Yoel Do DO Referring Provider Dr. Paras Renee DO Attending Provider Dr. Paras Renee DO Referring Provider Paras Renee Referring Unavailable Paras Renee Attending Unavailable Yoel Do Primary Care Unavailable Pk Lowery Consulting Unavailable Pk Lowery Admitting Unavailable Jani Britt Referring Unavailable Yoel Do Primary Care Unavailable Maninder Morse Attending Unavailable Paras Renee Attending Unavailable Yoel Do Primary Care Unavailable Yoel Do Referring Unavailable Nadir Campos Consulting Unavailable Pk Lowery Attending Unavailable Pk Lowery Admitting Unavailable Jani Britt Referring Unavailable ErnestinaYoel hanson Primary Care Unavailable Vimal Mcguire Consulting Unavailable Chris Harrell Consulting Unavailable Paras Renee Consulting Unavailable Pk Colbert Consulting Unavailable Yifan Armijo Consulting Unavailable Renny Bashir Consulting Unavailable Alisha Romero Consulting UnavailYousif Rios Consulting Unavailable Dav Clement Consulting Unavailable Franklin Servin Consulting Unavailable Lakeisha Dawn Consulting Unavailable Go Mac Consulting Unavailable Moran, Taylor Consulting Unavailable Vikas, Pieter Consulting Unavailable Axel Maria Consulting Unavailable Rosales Webster Consulting Unavailable Arian Anthony Consulting Unavailable Rebecca Mckeon Consulting Unavailable Edgar Hassan Consulting Unavailable Joshua Kan Consulting Unavailable Jeet Casas Consulting Unavailable Steven Martínez Consulting Unavailable Pk Lowery Consulting Unavailable Maninder Morse Consulting Unavailable Paras Renee Attending Unavailable Maninder Morse Attending Unavailable Susan DAHL, Jackelin Attending Unavailable Yoel Do Referring Unavailable Yoel oD Primary Care Unavailable Jackelin Davis NP Referring Unavailable Jackelin Davis NP Attending Unavailable Yoel Do Primary Care Unavailable Allergies Allergy Classification Reported Allergen(s) Allergy Type Date of Onset Reaction(s) Facility (1 source) Sulfonamides (Antibiotic) Drug allergy (disorder) [facility] Repository (8 sources) Sulfonamides (Antibiotic) Allergy to substance 7 Unknown [facility] (1 source) Sulfonamides (Antibiotic) Drug allergy (disorder) 5 [facility] Repository Medications Current Medications Medication Drug Class(es) Dates Sig (Normalized) Sig (Original) ALPRAZolam 1 mg oral tablet (17 sources) Benzodiazepine Start: 10-22-2024 take 0.5 mg by mouth at bedtime Alprazolam 1 mg tablet Active 0.5 mg PO AT BEDTIME October 22, 2024 1:00am sleep Start: 05-17-2017 ALPRAZOLAM 0.5 MG TABS ALPRAZOLAM [id number] Sravan Rebollar Start: 05-10-2017 End: 10-22-2024 take 2 tablets by mouth at bedtime Alprazolam 0.5 MG tablet Discontinued 1 mg PO AT BEDTIME May 10, 2017 12:00am October 22, 2024 8:55pm ANXIETY Start: 05-10-2017 take 1 mg by mouth at bedtime Alprazolam Active 1 MG PO AT BEDTIME May 10, 2017 12:00am Fwpvzrdjhb-Umuxcgvf-Axvpwdyb ol (16 sources) Corticosteroid, beta2-Adrenergic Agonist Start: 03-18-2025 Ctwhjlwhfz-Tvdvfpzl-Mzcqbpxu ol (Breztri Aerosphere) 160-9-4.8 mcg/actuation HFA aerosol inhaler Active 2 NMA INHALATION TWICE A DAY 10.7 12 March 18, 2025 10:52am breathing Start: 08-24-2024 End: 03-18-2025 Afgxtjmatk-Tptkjotl-Imzranok ol (Breztri Aerosphere) 160-9-4.8 mcg/actuation HFA aerosol inhaler Discontinued 2 NMA INHALATION TWICE A DAY 10.7 12 August 24, 2024 11:36am March 18, 2025 10:52am breathing Start: 08-24-2024 Budesonide-Gly copyr-Formoterol (Breztri Aerosphere) 160-9-4.8 mcg/actuation HFA aerosol inhaler Active 2 NMA INHALATION TWICE A DAY 10.7 August 24, 2024 11:36am Start: 11-20-2022 End: 08-24-2024 Qvsbgocfss-Cxyotgji-Eukmttxq ol (Breztri Aerosphere) 160-9-4.8 mcg/actuation HFA aerosol inhaler Discontinued 2 NMA INHALATION TWICE A DAY 10.7 12 November 20, 2022 9:05am August 24, 2024 11:36am Start: 11-20-2022 End: 08-24-2024 Ampvypfdkj-Opuwzkyh-Buvdgsvw ol (Breztri Aerosphere) 160-9-4.8 mcg/actuation HFA aerosol inhaler Discontinued 2 NMA INHALATION TWICE A DAY 10.7 November 20, 2022 9:05am August 24, 2024 11:36am Start: 11-20-2022 Budesonide-Gly copyr-Formoterol (Breztri Aerosphere) 160-9-4.8 mcg/actuation HFA aerosol inhaler Active 2 INH INHALATION TWICE A DAY 10.7 November 20, 2022 9:05am Start: 10-25-2022 End: 11-20-2022 Xpeztkbibl-Jslcuawd-Frpdhvmo ol (Breztri Aerosphere) 160-9-4.8 mcg/actuation HFA aerosol inhaler Discontinued 2 NMA INHALATION TWICE A DAY 10.7 October 25, 2022 2:38pm November 20, 2022 9:06am Start: 10-25-2022 End: 11-20-2022 Zdvpjaxytm-Rfenbakh-Ovrgtvdv ol (Breztri Aerosphere) 160-9-4.8 mcg/actuation HFA aerosol inhaler Discontinued 2 NMA INHALATION TWICE A DAY 10.7 October 25, 2022 2:38pm November 20, 2022 9:06am Start: 10-25-2022 End: 11-20-2022 Elmwdojqls-Azfaqacf-Hiaoueav ol (Breztri Aerosphere) 160-9-4.8 mcg/actuation HFA aerosol inhaler Discontinued 2 INH INHALATION TWICE A DAY 10.7 October 25, 2022 2:38pm November 20, 2022 9:06am Start: 10-25-2022 Budesonide-Gly copyr-Formoterol (Breztri Aerosphere) 160-9-4.8 mcg/actuation HFA aerosol inhaler Active 2 INH INHALATION TWICE A DAY 10.7 October 25, 2022 1:38pm Start: 09-19-2022 End: 10-25-2022 Yrrpgwnnqk-Rackjskw-Vdgbgxmk ol (Breztri Aerosphere) 160-9-4.8 mcg/actuation HFA aerosol inhaler Discontinued 2 NMA INHALATION TWICE A DAY 10.7 12 September 19, 2022 1:00am October 25, 2022 2:39pm Start: 09-19-2022 End: 10-25-2022 Asqtxtlewn-Tlsvwacx-Ocojanus ol (Breztri Aerosphere) 160-9-4.8 mcg/actuation HFA aerosol inhaler Discontinued 2 NMA INHALATION TWICE A DAY 10.7 September 19, 2022 1:00am October 25, 2022 2:39pm Start: 09-19-2022 End: 10-25-2022 Wjfpulamcm-Ntyqbggy-Saltnwjm ol (Breztri Aerosphere) 160-9-4.8 mcg/actuation HFA aerosol inhaler Discontinued 2 INH INHALATION TWICE A DAY 10.7 September 19, 2022 1:00am October 25, 2022 2:39pm Start: 09-19-2022 End: 10-25-2022 Nlyqmwmafs-Drjtjkbq-Oxicvszu ol (Breztri Aerosphere) 160-9-4.8 mcg/actuation HFA aerosol inhaler Discontinued 2 INH INHALATION TWICE A DAY 10.7 September 193 12:00am October 25, 2022 1:39pm Start: 09-19-2022 Budesonide-Gly copyr-Formoterol (Breztri Aerosphere) 160-9-4.8 mcg/actuation HFA aerosol inhaler Active 2 INH INHALATION TWICE A DAY 10.September 19, 2022 12:00am cetirizine hydrochloride 10 mg oral tablet (4 sources) Histamine-1 Receptor Antagonist Start: 11-23-2024 End: 11-23-2024 take 1 tablet by mouth once daily Cetirizine 10 mg tablet Active 10 mg PO DAILY 90 November 23, 2024 9:40am Abnormal computerized axial tomography of chest Abnormal findings on diagnostic imaging of other specified body structures allergy symptoms fluticasone propionate 0.05 mg/actuat metered dose nasal spray (2 sources) Corticosteroid Start: 11-23-2024 Fluticasone Propionate 50 mcg/actuation spray,suspension Active 2 NMA INTRANASAL DAILY 16 3 November 23, 2024 12:00am Abnormal computerized axial tomography of chest Asthma Abnormal findings on diagnostic imaging of other specified body structures Unspecified asthma, uncomplicated ipratropium bromide 0.021 mg/actuat metered dose nasal spray (7 sources) Anticholinergic Start: 11-20-2022 Ipratropium [place] 21 mcg (0.03 %) spray,non-aerosol Active 2 NMA INTRANASAL 2 to 3
[2025-04-07 22:59] VITALS: BP 129/77; PULSE 72; RESP 19; TEMP 37.1; O2SAT 97
[2025-04-08] VITALS: BP 128/71; PULSE 73; RESP 18; O2SAT 99
[2025-04-08 00:08] LABS: Troponin T High Sens 2 HR 28 ng/L (<=22)
[2025-04-08 00:46] VITALS: BP 128/71; PULSE 75; RESP 14; TEMP 36.6; O2SAT 98
== END 2025-04-08 00:51 | disposition home or self-care (01) ==
PROVIDERS: Emergency Provider Emergency Medicine; PCP Family Medicine; Visit Provider Emergency Medicine
DX: R07.9 Chest pain, unspecified (principal); J44.1 Chronic obstructive pulmonary disease with (acute) exacerbation; J45.901 Unspecified asthma with (acute) exacerbation; Z87.891 Personal history of nicotine dependence; Z79.51 Long term (current) use of inhaled steroids
CPT/HCPCS: 71045; 80048; 84484; 85025; 93005; 94640; 99284; A4216

== ENCOUNTER 2025-08-16 09:20 | Emergency (ER) | payer OTHER, SELFPAY ==
[2025-08-16] VITALS (7 sets, daily range): BP systolic 116–134; BP diastolic 72–79; PULSE 87–103; RESP 18–22; TEMP 36.4–36.6; O2SAT 92–94; BMI 20.9
--- NOTE | 2025-08-16 09:40 | RAD_ITS ---
PROCEDURE: CHEST PA AND LATERAL 08/16/2025 REASON FOR EXAM: COUGH SOB COPD TECHNIQUE: Procedure Code: RADCXR Modality: DX Procedure: CHEST PA AND LATERAL COMPARISON: April 07, 2025 FINDINGS: Heart size and mediastinal configuration are within normal limits. Lung volumes are increased, with COPD. There is no focal infiltrate or consolidation. There is no pneumothorax or effusion. Aortic calcifications are noted. Midthoracic compression deformities are noted with kyphosis. RAD/Chest PA and Lateral IMPRESSION: COPD with no focal consolidation. Reading Location: [place]
--- NOTE | 2025-08-16 09:40 | EKG12_ITS ---
Test Reason : Blood Pressure : */* mmHG Vent. Rate : 90 BPM Atrial Rate : 90 BPM P-R Int : 124 ms QRS Dur : 96 ms QT Int : 354 ms P-R-T Axes : 79 67 65 degrees QTcB Int : 433 ms Normal sinus rhythm with sinus arrhythmia Normal ECG Confirmed by Pk Morris ([id number]), loan expeditor ROB WHITE ([id number]) on 08/18/2025 11:30:14 AM Referred By: Confirmed By: Pk Morris
--- NOTE | 2025-08-16 09:42 | EDS_ITS ---
HPI History of Present Illness Chief Complaint: Shortness of Breath Informant: patient Narrative Narrative: Patient is a 75-year-old male with a history of COPD presenting with dyspnea and increased sputum production. - Symptoms began approximately 5 days ago. - Reports increased dyspnea, particularly during exertion such as walking; unable to walk fast without becoming short of breath. Denies any associated chest tightness or chest pain, fevers, chills, leg swelling, GI symptoms. - Reports increased sputum production, denies hemoptysis. - Denies orthopnea, but elevates head when lying down; denies increased cough when supine. - Denies known cardiac issues. - Reports a headache this morning, which is unusual for him; headache has mostly better now. - No known sick contacts. - Suspects symptoms may be related to asthma/COPD. [facility] Medical History Bronchiectasis Difficulty urinating Respiratory insufficiency Exposure to environmental toxic substances IPF (idiopathic pulmonary fibrosis) COPD with acute exacerbation Nocturnal hypoxia History of tobacco use Perennial non-allergic rhinitis Stage 3 severe chronic obstructive pulmonary disease by Global Initiative for Chronic Obstructive Lung Disease classification Chronic obstructive asthma (with obstructive pulmonary disease) Allergic rhinitis due to allergen Left wrist Home Medications ?Medication ?Instructions ?Recorded ?Last Taken ?Type mirtazapine 15 mg tablet 15 mg PO QHS mental health 1 10/14/21 08/15/25 History alprazolam 1 mg tablet 1 mg PO QHS sleep 10/22/24 1 10/16/24 History venlafaxine 75 mg capsule,extended 75 mg PO DAILY [facility] 10/22/24 08/16/25 History release 24 hr albuterol sulfate 90 mcg/actuation 2 inh inhalation Q6 H PRN shortness 11/23/24 08/16/25 Rx aerosol inhaler of breath or wheezing #8.5 g shalonda nebulizer kits #1 ea 05/19/25 Unknown Rx neublizer machine #1 ea 05/19/25 Unknown Rx ipratropium 0.5 mg-albuterol 3 mg 3 ml inhalation Q4-6 H PRN 08/02/25 08/15/25 Rx (2.5 mg base)/3 mL nebulization shortness of breath or wheezing soln #180 mL ascorbic acid (vitamin C) 1 tab PO DAILY 08/16/2504/02 History doxycycline monohydrate 100 mg 100 mg PO BID #14 CAPSU LES 08/16/25 Unknown Rx capsule prednisone 10 mg tablet 10 mg PO UD #38 tabs 5 Unknown Rx vitamin E mixed 1 tab PO DAILY 08/16/2504/02 History Allergy/AdvReac Type Severity Reaction Status Date / Time Sulfa (Sulfonamide Allergy Unknown Verified 08/16/25 09:20 Antibiotics) Family History Mother Heart disease Surgical History Right arm and ankle Left elbow ORIF Social History Smoking Status: Former smoker ROS ROS ED Constitutional Constitutional ED: Denies chills or fever(s) Eyes Eyes: Denies change in vision or diplopia ENT ENT ED: Denies rhinorrhea or sore throat Cardiovascular Cardiovascular: Denies chest pain, leg edema, orthopnea or palpitations Respiratory/Chest Respiratory/Chest: Reports cough, dyspnea, dyspnea on exertion and sputum; Denies orthopnea Gastrointestinal Gastrointestinal: Denies abdominal pain, diarrhea, nausea or vomiting Genitourinary Genitourinary ED: Denies dysuria or hematuria Musculoskeletal Musculoskeletal: Denies back pain or neck pain Integumentary Denies abscess or rash Neurologic Neurologic: Denies headache(s), paresthesias or weakness Psychiatric Psychiatric: Denies anxiety or suicidal thoughts EXAM Physical Exam Const Vital Signs: 08/16/25 09:20 08/16/25 09:50 08/16/25 09:55 Temperature 97.5 F L Temperature Source Temporal Pulse Rate 103 H 90 Respiratory Rate 22 H 20 H Respiratory Effort Short of Breath Blood Pressure 134/79 H Blood Pressure Mean 97 Pulse Ox 92 Oxygen Delivery Method Room Air 08/16/25 10:19 08/16/25 10:20 08/16/25 11:00 Temperature Temperature Source Pulse Rate 88 88 Respiratory Rate 20 H 18 Respiratory Effort Blood Pressure 120/72 118/72 Blood Pressure Mean 88 87 Pulse Ox 93 94 Oxygen Delivery Method Room Air 08/16/25 12:00 Temperature Temperature Source Pulse Rate 87 Respiratory Rate 18 Respiratory Effort Blood Pressure 116/72 Blood Pressure Mean 86 Pulse Ox 94 Oxygen Delivery Method Positive well nourished and well developed General Appearance ED: well developed and NAD HEENT Reports moist mucous membranes normocephalic and atraumatic Eyes PERRL and EOMs intact bilaterally Neck full ROM, no lymphadenopathy, supple and no JVD Resp normal respiratory effort and clear to auscultation bilaterally Resp Narrative: Diminished throughout, but symmetrically and fairly clear. Conversive in full sentences no respiratory distress. Cardio regular rate, regular rhythm and no murmurs GI non-tender and non-distended Auscultation: normoactive bowel sounds Palpation: soft Back/Spine no CVA tenderness General Back: other FROM Extremity normal to inspection General Extremety ED: Negative for edema, pulses abnormal or tenderness General Extremity: Negative for edema or pulses abnormal Neuro oriented x3, CN's II-XII intact bilaterally and no sensory deficits noted Sensorium / Orientation: awake and alert Motor Exam: strength 5/5 throughout Psych mental status grossly normal Skin no rashes or lesions noted and no wounds MDM MDM MDM Narrative Medical decision making narrative: Assessment: The patient is a 75-year-old male with PMH of COPD presenting for five days of increased dyspnea and productive cough without fever or chest pain. Clinical picture is most consistent with an upper respiratory tract infec tion/acute bronchitis with mild COPD exacerbation. Normal EKG rules out cardiac etiologies, and 2-view chest X-ray shows underlying COPD without acute infiltrate, making pneumonia unlikely. Negative COVID-19/Influenza/RSV swab further supports a non-viral severe etiology. After nebulizer therapy, he is symptomatically improved and hemodynamically stable for discharge. Plan: - Nebulized bronchodilator treatment given in ED with symptomatic improvement - Started prednisone course in ED; discharge with taper - Started outpatient antibiotic therapy to prevent secondary bacterial infection - Discharge home; patient and understand and agree with plan Diagnostics: - EKG interpreted as normal; no ischemia or arrhythmia noted. Independently interpreted by me, Kenn Vegas. - 2-view chest X-ray: chronic COPD changes, no acute infiltrate; radiology in agreement. - COVID-19/Influenza/RSV swab: negative Reevaluations: - Post-treatment: improved work of breathing, vital signs within normal limits, stable for discharge Portions of this note were generated using voice recognition software ([employer]). I have reviewed the contents and every effort has been made to ensure accuracy; however, inadvertent errors in grammar, spelling, punctuation, or word choice may occur, that were not noted before signing the document and should not alter the intended clinical meaning. History & Record Review Discussion w/independent historian: Patient and Significant other Radiography Diagnostic Testing: Clinical Impression(s) from Imaging Studies Chest X-Ray 08/16/25 09:40 IMPRESSION: COPD with no focal consolidation. [facility] Rhythm Strip: Sinus Rhythm Rate: 90 Ectopy: None EKG Initial EKG: Attestation: I personally reviewed and interpreted this EKG as follows: Interpretation: Sinus Rhythm and No Acute Injury Pattern Comments: Nml axis & intervals; nml EKG Discharge Plan Triage Chief Complaint: Shortness of Breath ED Provider: Kenn Vegas Dx/Rx/DC Orders Clinical Impression: Acute bronchitis, Acute exacerbation of chronic obstructive pulmonary disease Instructions: ED Bronchitis, No Antibiotic (Adult), ED COPD Flare Prescriptions: New prednisone 10 mg tablet 10 mg PO UD Qty: 38 0RF Rx Instructions: Take 4 tablets daily for 5 days, then 3 daily for 3 days, then 2 daily for 3 days, then 1 a day for 3 days doxycycline monohydrate 100 mg capsule 100 mg PO BID Qty: 14 0RF No Action mirtazapine 15 mg tablet 15 mg PO QHS albuterol sulfate 90 mcg/actuation HFA aerosol inhaler 2 inh inhalation Q6H PRN (Reason: shortness of breath or wheezing) Qty: 8.5 11RF (DME) neublizer machine See Rx Instructions .ROUTE .MEDSUPPLY Qty: 1 0RF Rx Instructions: Cherrie Jet nebulizer (DME) nebulizer kits See Rx Instructions .ROUTE .MEDSUPPLY Qty: 1 11RF Rx Instructions: As directed alprazolam 1 mg tablet 1 mg PO QHS venlafaxine 75 mg capsule,extended release 24hr 75 mg PO DAILY vitamin E mixed 1 tab PO DAILY ascorbic acid (vitamin C) 1 tab PO DAILY ipratropium-albuterol 0.5 mg-3 mg(2.5 mg base)/3 mL solution for nebulization 3 ml inhalation Q4-6H PRN (Reason: shortness of breath or wheezing) Qty: 180 6RF Primary Care Provider: Angelica Yates NP Referrals: Angelica Yates NP, [employer] [facility] [Primary Care Provider, Medical] - 3-5 Days if not improving Activity Restrictions/Additional Instructions: - Start the prednisone prescription tomorrow and complete the full course. - Begin the antibiotic prescribed today and finish the entire course to help prevent bacterial infection (what you have now is probably viral and may not resolve quickly with the antibiotic). - Your COVID-19, influenza, and RSV rapid tests were negative. - Chest X-ray showed no signs of pneumonia or fluid build-up, and your EKG was normal. Print Language: Nicarag[place] Disposition Disposition: Home, Self Care
--- OUTSIDE RECORDS SUMMARY | 2025-08-16 11:08 | XMS RPT_ITS | CCD ---
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 Qualifiers: Bronchiectasis type: with acute lower respiratory infection Qualified Code(s): J47.0 - Bronchiectasis with acute lower respiratory infection Comment: Identified on CTA on 10/22/2024 Plan: Due to the bronchiectasis that was seen on CTA imaging and the response to DuoNebs during his recent ER visit I have recommended that he have available DuoNeb therapy. The patient would benefit from a Cherrie jet nebulizer and this has been ordered accordingly. The patient should notify this practice if he has worsening respiratory symptoms. Orders: Orders Chest without Contrast 09/24/25 R91.8 - Other nonspecific abnormal finding of lung field Medications: New [neublizer machine] Cherrie Jet nebulizer 1 ea 0RF R91.8 - Other nonspecific abnormal finding of lung field [nebulizer kits] As directed 1 ea 11RF R91.8 - Other nonspecific abnormal finding of lung field ipratropium-albuterol 0.5 mg-3 mg(2.5 mg base)/3 mL 3 mL inhalation Q4-6H PRN 180 mL 6RF shortness of breath or wheezing Plan Details Follow Up: October 2025 (LMR) HPI HPI Comments Details: The patient is a 75-year-old male who presents to the clinic today for a routine scheduled follow-up office visit. He is ambulatory and currently on room air. He is accompanied by his spouse. If you recall the patient was previously under the care of Dr. Eduardo Meeks until her departure. The patient had pulmonary function studies completed in February 2023 which demonstrated a very severe large airways obstructive ventilatory defect. He has been managed medically for a COPD/asthma overlap syndrome along with nocturnal hypoxemia requiring 2 L/min of supplemental oxygen with sleep. Follow-up CT chest completed in December 2024 demonstrated bilateral emphysematous changes with several subcentimeter pulmonary nodules, the largest of which measured 9 mm in the left upper lobe, unchanged from prior examination. Since last evaluation he was evaluated in the ER on April 07, 2025 for chest pain. His initial and 2-hour repeat high-sensitivity troponin were within normal limits. CBC revealed a mild anemia. Chest x-ray showed no acute chest findings. EKG showed sinus rhythm and no acute injury pattern. He was diagnosed with asthma exacerbation and was given DuoNeb aerosol treatments and was encouraged to continue to use his nighttime nasal cannula oxygen. He reports that the DuoNeb treatments were beneficial to him. He is using 3 L/min supplemental oxygen at night. He continues to use Breztri 2 inhalations twice daily reports that there is benefit from this inhaler. He has not had difficulty with side effects such as sore throat or hoarseness. He does use his rescue inhaler and reports that it is beneficial especially when the weather changes and there is high humidity. Today, the patient reported overall stability in his breathing quality. He does notice that shortness of breath will occur if walking too fast or if there are too many stairs. He denies wheeze and cough. He denies chest pain and chest tightness. Documentation reviewed with patient today includes: Chest CT without contrast from March 23, 2025 shows coronary artery calcification is present, stable emphysematous changes, calcified left hilar lymph nodes and left granulomas. Interval decrease in size of the previously seen 9 mm nodule in the left upper lobe. Intake Vital Signs 01/14/25 08:30 05/19/25 06:38 Height 5 ft 6 in 5 ft 5 in Weight: 120 lb BMI 20.0 BP 121/75 H Blood Pressure Location Rt brachial Position Sitting Respiration 18 Pulse 88 Pulse Source Monitor Temp 97.3 F L Temperature Source Temporal [place] (more content not included)... Normal [facility] Troponin T HS 2 HRon 025 Trop T High Sen 28 ng/L High <=22 [facility] Comment on above: Performed By: #### L 499.0042 #### [facility] Laboratory [address] [place], [address] Troponin T HS 4 HRon 025 Trop T High Sen Normal <=22 [facility] Comment on above: Result Comment: Canc elled via OM: Order cancelled - Patient discharged Performed By: #### L 501.9520 #### [facility] Laboratory [address] [facility] [address] [place], [place], [address] 12 Lead EKGon 04-07-2025 12 Lead EKG [facility] [address] [place] [address] 12 Lead EKG 04/07/25 2137 MR#: [id number] Acct: [id number] Name: ANGELA AGUILAR Rep #: [id number] : 1950 75 From: Brody Figueroa MD Attending Dr: Status: DEP ER Ordering Dr: Doug Duenas DO Date: 04/07/25 Location: ED Sex: M C Admitted: Test Reason : CP/SOB Blood Pressure : */* mmHG Vent. Rate : 83 BPM Atrial Rate : 83 BPM P-R Int : 126 ms QRS Dur : 96 ms QT Int : 356 ms P-R-T Axes : 81 70 70 degrees QTcB Int : 418 ms Normal sinus rhythm with sinus arrhythmia Normal ECG Confirmed by QUE MCCARTHY, BRODY ([id number]), news copy editor ROB WHITE ([id number]) on 04/08/2025 8:43:03 AM Referred By: DEN Confirmed By: BRODY FIGUEROA MD 04/08/25 0843 Date Brody Figueroa MD CC: Dr. Doug Duenas DO; Dr. Yoel Do DO Signed Normal [facility] Absolute lymphocyte countOrd ered By: Doug Duenas on 04-07-2025 Lymphocytes Auto (Unsp spec) [#/Vol] 2.16 10*3/uL 0.83-4.51 [facility] Absolute neutrophil countOrd ered By: Doug Duenas on 04-07-2025 Neutrophils (Bld) [#/Vol] 3.5 10*3/uL 2.0-7.7 [facility] Anion gap in Serum or Plasma Ordered By: Doug Duenas on 04-07-2025 Anion gap [Moles/Vol] 11 mmol/L 01-21 [facility] Automated lymphocyte count a s percentage of total leukocytesOrdered By: Doug Duenas on 04-07-2025 Lymphocytes/100 WBC Auto (Unsp spec) 31.2 % [facility] BUN/creatinine ratioOrdered By: Doug Duenas on 04-07-2025 Urea nitrogen/Creatinine [Mass ratio] 17.1 mg/mg 06-28 [facility] Basic Metabolic Profile (BMP )on 04-07-2025 BUN/CRE 17.1 RATIO Normal 06-28 [facility] Comment on above: Performed By: #### L 500.2500, L501.4021, L100.0100 #### [facility] Laboratory [address] [place], [address] Calcium [Mass/Vol] 9.6 mg/dL Normal 7.6-11.0 [facility] Comment on above: Performed By: #### L 500.2500, L501.4021, L100.0100 #### [facility] Laboratory [address] [place], [address] Chloride [Moles/Vol] 102 mmol/L Normal 98-108 [facility] Comment on above: Performed By: #### L 500.2500, L501.4021, L100.0100 #### [facility] [address] [place], [address] CO2 [Moles/Vol] 27.3 mmol/L Normal 21.0-32.0 [facility] Comment on above: Performed By: #### L 500.2500, L501.4021, L100.0100 #### [facility] Laboratory [address] [place], [address] Creatinine [Mass/Vol] 1.02 mg/dL Normal 0.70-1.20 [facility] Comment on above: Performed By: #### L 500.2500, L501.4021, L100.0100 #### [facility] Laboratory [address] [place], [address] ECRCL 47.08 ml/min Low 50-250 [facility] Comment on above: Performed By: #### L 500.2500, L501.4021, L100.0100 #### [facility] Laboratory [address] [place], [address] GAP 11 Normal 5-15 [facility] Comment on above: Performed By: #### L 500.2500, L501.4021, L100.0100 #### [facility] Laboratory [address] [place], [address] GFR/1.73 sq M.predicted among non-blacks MDRD (S/P/Bld) [Vol rate/Area] 76 mL/min/{1.73_m2} Normal >60 [facility] Comment on above: Result Comment: mL/m in/1.73m2 CKD-EPI Creatinine Equation (2020) Performed By: #### L 500.2500, L501.4021, L100.0100 #### [facility] Laboratory [address] [place], [address] Glucose [Mass/Vol] 99 mg/dL Normal 70-99 [facility] Comment on above: Performed By: #### L 500.2500, L501.4021, L100.0100 #### [facility] Laboratory [address] [place], [address] Potassium [Moles/Vol] 4.2 mmol/L Normal 3.3-5.1 [facility] Comment on above: Performed By: #### L 500.2500, L501.4021, L100.0100 #### [facility] [address] [place], [address] Sodium [Moles/Vol] 140 mmol/L Normal 133-145 [facility] Comment on above: Performed By: #### L 500.2500, L501.4021, L100.0100 #### [facility] Laboratory [address] [place], [address] Urea nitrogen [Mass/Vol] 17 mg/dL Normal 4-19 [facility] Comment on above: Performed By: #### L 500.2500, L501.4021, L100.0100 #### [facility] [address] [place], [address] Basophil percentageOrdered B y: Doug Duenas on 04-07-2024 Basophils/100 WBC (Bld) 0.6 % 0-1 [facility] CBC W/Diff, Automatedon 03-11 0-2024 Absolute Lymph 2.16 X10 3/uL Normal 0.83-4.51 [facility] Comment on above: Performed By: #### L 500.2500, L501.4021, L100.0100 #### [facility] Laboratory [address] [place], [address] Absolute Neut 3.5 X10 3/uL Normal 2.0-7.7 [facility] Comment on above: Performed By: #### L 500.2500, L501.4021, L100.0100 #### [facility] Laboratory [address] [place], [address] Basophils/100 WBC (Bld) 0.6 % Normal 0-1 [facility] Comment on above: Performed By: #### L 500.2500, L501.4021, L100.0100 #### [facility] Laboratory [address] [place], [address] Eosinophils/100 WBC (Bld) 4.5 % Normal 0-5 [facility] Comment on above: Performed By: #### L 500.2500, L501.4021, L100.0100 #### [facility] Laboratory [address] [place], [address] Erythrocyte distribution width (RBC) [Ratio] 13.6 % Normal 11.6-14.6 [facility] Comment on above: Performed By: #### L 500.2500, L501.4021, L100.0100 #### [facility] Laboratory [address] [place], [address] Hematocrit (Bld) [Volume fraction] 39.9 % Low 40-54 [facility] Comment on above: Performed By: #### L 500.2500, L501.4021, L100.0100 #### [facility] Laboratory [address] [place], [address] Hemoglobin (Bld) [Mass/Vol] 12.9 g/dL Low 13.0-16.5 [facility] Comment on above: Performed By: #### L 500.2500, L501.4021, L100.0100 #### [facility] Laboratory [address] [place], [address] IG% 0.300 Normal 0.0-0.9 [facility] Comment on above: Result Comment: IG% - Immature Granulocytes (promyelocytes, myelocytes and metamyelocytes) > 1% indicates that a LEFT SHIFT is Present. Performed By: #### L 500.2500, L501.4021, L100.0100 #### [facility] Laboratory [address] [place], [address] Lymphocytes/100 WBC (Bld) 31.2 % Normal 19-41 [facility] Comment on above: Performed By: #### L 500.2500, L501.4021, L100.0100 #### [facility] Laboratory [address] [facility] [place], [address] MCH (RBC) [Entitic mass] 30.4 pg Normal 27.0-32.0 [facility] Comment on above: Performed By: #### L 500.2500, L501.4021, L100.0100 #### [facility] Laboratory [address] [place], [address] MCHC (RBC) [Mass/Vol] 32.3 g/dL Normal 32-36 [facility] Comment on above: Performed By: #### L 500.2500, L501.4021, L100.0100 #### [facility] Laboratory [address] [place], [address] MCV (RBC) [Entitic vol] 93.9 fL Normal 80-94 [facility] Comment on above: Performed By: #### L 500.2500, L501.4021, L100.0100 #### [facility] Laboratory [address] [place], [address] Monocytes/100 WBC (Bld) 12.8 % High 0-10 [facility] Comment on above: Performed By: #### L 500.2500, L501.4021, L100.0100 #### [facility] Laboratory [address] [place], [address] Neutrophils/100 WBC (Bld) 50.6 % Normal 47-70 [facility] Comment on above: Performed By: #### L 500.2500, L501.4021, L100.0100 #### [facility] Laboratory [address] [place], [address] Nucleated RBC (Bld) [#/Vol] 0 10*3/uL Normal 0-5 [facility] Comment on above: Performed By: #### L 500.2500, L501.4021, L100.0100 #### [facility] Laboratory [address] [place], [address] Platelet mean volume (Bld) [Entitic vol] 8.9 fL Normal 6.2-12.0 [facility] Comment on above: Performed By: #### L 500.2500, L501.4021, L100.0100 #### [facility] Laboratory [address] [place], [address] Platelets (Bld) [#/Vol] 251 10*3/uL Normal 150-450 [facility] Comment on above: Performed By: #### L 500.2500, L501.4021, L100.0100 #### [facility] Laboratory [address] [place], [address] RBC (Bld) [#/Vol] 4.25 10*6/uL Low 4.6-6.2 [facility] Comment on above: Performed By: #### L 500.2500, L501.4021, L100.0100 #### [facility] Laboratory [address] [place], [address] RDW SD 46.7 fl High 35.1-43.9 [facility] Comment on above: Performed By: #### L 500.2500, L501.4021, L100.0100 #### [facility] Laboratory [address] [place], [address] WBC (Bld) [#/Vol] 6.9 10*3/uL Normal 4.4-11.0 [facility] Comment on above: Performed By: #### L 500.2500, L501.4021, L100.0100 #### [facility] Laboratory [address] [place], [address] Carbon dioxide, total [Moles /volume] in Central venous bloodOrdered By: Doug Duenas on 04-07-2025 CO2 [Moles/Vol] 27.3 mmol/L 21.0-32.0 [facility] Chest 1 View (Portable)on Chest 1 View (Portable) [facility] Imaging Services [address] [place] [address] Chest 1 View (Portable) MR#: [id number] Acct: [id number] Name: ANGELA AGUILAR Rep #: [id number] : 1950 M 75 From: Master Scott MD PCP: Dr. Yoel Do DO Status: PRE ER Study: Chest 1 View (Portable) Date of Exam: 04/07/25 Exam# [id number] Ordering Dr: Doug Duenas DO PROCEDURE: CHEST 1 VIEW (PORTABLE) 04/07/2025 REASON FOR EXAM: CHEST PAIN TECHNIQUE: Frontal view of the chest. COMPARISON: CT 03/24/2025 FINDINGS: Lordotic positioning. Normal heart size. Well inflated lungs. No consolidation, effusion, or pneumothorax. RAD/Chest 1 View (Portable) IMPRESSION: No acute chest findings Reading Location: [place] [address] CC: Dr. Doug Duenas DO; Dr. Yoel Do DO Bus System Operator: Signed Normal [facility] Chloride assayOrdered By: Jim Duenas on 04-07-2025 Chloride [Moles/Vol] 102 mmol/L 98-108 [facility] Emergency Department Summary on 04-07-2025 Emergency Department Summary [facility] Medical Records Department [address] [place] [address] Emergency Department Summary 04/07/25 MR#: [id number] Acct: [id number] Name: ANGELA AGUILAR Rep #: [id number] : 1950 75 From: Doug Duenas DO PCP: Dr. Yoel Do DO Status:DEP ER Location: ED HPI History of Present Illness Chief Complaint: Chest Pain Informant: patient Onset/Context/Timing Onset: Hours Activity at onset: gradual Timing: Intermittent Quality: Positive for Dull Location: Left Parasternal and Left Chest Worsened By: Nothing Relieved By: Nothing Associated Symptoms: Positive for Dyspnea; Negative for Nausea, Vomiting, Diaphoresis, Cough, Fever, Lightheadedness, Acid Reflux or Palpitations Narrative Narrative: Patient presents with shortness of breath and chest pain that began tonight. Patient states a few hours prior to arrival. Patient states he took his albuterol inhaler at home with no improvement. Patient admits to some dull pain over the left side of chest. Patient states nothing makes it worse and nothing makes it better. Patient denies any cough. Patient denies any nausea or vomiting. Patient denies any diaphoresis. Patient denies any fevers or chills. CVD Risk Factors: Negative for Hypertension, Diabetes, Hypercholesterolemia, Family History 1' or Smoking PE Risk Factors: Negative for Recent Travel/Surgery, Recent Immobilization, Prior DVT or PE, Cancer or OCP + Smoking + >/=35 PFSH PFSH Medical History Difficulty urinating Respiratory insufficiency Exposure to environmental toxic substances IPF (idiopathic pulmonary fibrosis) Bronchiectasis COPD with acute exacerbation Nocturnal hypoxia History of tobacco use Perennial non-allergic rhinitis Stage 3 severe chronic obstructive pulmonary disease by Global Initiative for Chronic Obstructive Lung Disease classification Chronic obstructive asthma (with obstructive pulmonary disease) Allergic rhinitis due to allergen Left wrist Home Medications ???Medication ???Instructions ???Recorded ???Last Taken ???Type mirtazapine 15 mg tablet 15 mg PO QHS mental health 2 10/21/24 History ipratropium bromide 21 mcg (0.03 2 spray intranasal BID-TID PRN Unknown Rx %) nasal spray allergy symptoms #30 mL potassium chloride 10 mEq 10 meq PO DAILY supplement #30 tab s 11/20/22 Unknown Rx tablet,extended release alprazolam 1 mg tablet 0.5 mg PO QHS sleep 10/22/2410/21 History venlafaxine 75 mg capsule,extended 75 mg PO DAILY mental health 10/22/24 History release 24 hr albuterol sulfate 90 mcg/actuation 2 inh inhalation Q6H PRN shortne ss 11/23/24 Unknown Rx aerosol inhaler of breath or wheezing #8.5 grams cetirizine 10 mg tablet 10 mg PO DAILY allergy symptoms Unknown Rx #90 tabs fluticasone propionate 50 2 spray intranasal DAILY #16 grams 11/23/24 Unknown Rx mcg/actuation nasal spray,suspension budesonide 160 mcg-glycopyr 9 2 inh inhalation BID breathing 07/03 Unknown Rx mcg-formot 4.8 mcg/actuation HFA #10.7 grams inhaler ([employer] Allergy/AdvReac Type Severity Reaction Status Date / Time Sulfa (Sulfonamide Allergy Unknown Verified 04/07/25 21:29 Antibiotics) Family History Mother Heart disease Surgical History Right arm and ankle Left elbow ORIF Social History Smoking Status: Former smoker ROS ROS ED Constitutional Constitutional ED: Denies chills or fever(s) Eyes Eyes: Denies blurry vision or change in vision ENT ENT ED: Denies rhinorrhea or sore throat Cardiovascular Cardiovascular: Reports chest pain; Denies palpitations Respiratory/Chest Respiratory/Chest: Reports dyspnea; Denies cough Gastrointestinal Gastrointestinal: Denies nausea or vomiting Genitourinary Genitourinary ED: Denies dysuria or hematuria Musculoskeletal Musculoskeletal: Denies back pain or neck pain Integumentary Denies abscess or rash Neurologic Neurologic: Denies headache(s) or weakness Allergic/Immunologic Allergic/Immunologic ED: Denies mouth swelling or urticaria EXAM Physical Exam Const Vital Signs: 04/07/25 21:29 04/07/25 21:31 04/07/25 21:31 Temperature 98.7 F 98.7 F Temperature Source Oral Oral Pulse Rate 115 H 94 Respiratory Rate 22 H 18 20 H Respiratory Effort Blood Pressure 146/100 H 147/86 H Blood Pressure Mean 115 106 Pulse Ox 88 93 99 Oxygen Delivery Method Room Air Nasal Cannula Nasal Cannula Oxygen Flow Rate (L/min) 2 2 04/07/25 21:31 04/07/25 21:46 04/07/25 22:06 Temperature Temperatu (more content not included)... Normal [facility] Eosinophil percentageOrdered By: Doug Duenas on 04-07-2025 Eosinophils/100 WBC (Bld) 4.5 % 0-5 [facility] Erythrocyte distribution wid th ratioOrdered By: Doug Duenas on 04-07-2025 Erythrocyte distribution width (RBC) [Ratio] 13.6 % 11.6-14.6 [facility] Erythrocyte distribution wid th standard deviationOrdered By: Doug Duenas on 04-07-2025 Erythrocyte distribution width (RBC) [Ratio] 46.7 fl High 35.1-43.9 [facility] Glomerular filtration rate ( GFR) estimation/1.73 sq m using serum, plasma, or whole bOrdered By: Doug Duenas on 04-07-2025 GFR/1.73 sq M.predicted among non-blacks MDRD (S/P/Bld) [Vol rate/Area] 76 mL/min/{1.73_m2} >60 [facility] Comment on above: mL/min/1.73m2 CKD-EP I Creatinine Equation (2020) Hematocrit Auto (Bld) [Volum e fraction]Ordered By: Doug Duenas on 04-07-2025 Hematocrit (Bld) [Volume fraction] 39.9 % Low 40-54 [facility] Hemoglobin measurementOrdere d By: Doug Duenas on 04-07-2025 Hemoglobin (Bld) [Mass/Vol] 12.9 g/dL Low 13.0-16.5 [facility] Immature granulocytes/100 WB C Auto (Bld)Ordered By: Doug Duenas on 04-07-2025 Immature granulocytes/100 WBC (Bld) 0.300 % 0.0-0.9 [facility] Comment on above: IG% - Immature Granu locytes (promyelocytes, myelocytes and metamyelocytes) > 1% indicates that a LEFT SHIFT is Present. L501.4021on 04-07-2025 Trop T High Sen 28 ng/L High <=22 [facility] Comment on above: Performed By: #### L 500.2500, L501.4021, L100.0100 #### [facility] Laboratory [address] [facility] [place], [address] MCV (mean corpuscular volume ) determinationOrdered By: Doug Duenas on 04-07-2025 MCV (RBC) [Entitic vol] 93.9 fL 80-94 [facility] Mean corpuscular hemoglobin (MCH) determinationOrdered By: Doug Duenas on 04-07-2025 MCH (RBC) [Entitic mass] 30.4 pg 27.0-32.0 [facility] Mean corpuscular hemoglobin concentration (MCHC) determinationOrdered By: Doug Duenas on 04-07-2025 MCHC (RBC) [Mass/Vol] 32.3 g/dL 32-36 [facility] Mean platelet volume determi nationOrdered By: Doug Duenas on 04-07-2025 Platelet mean volume (Bld) [Entitic vol] 8.9 fL 6.2-12.0 [facility] [facility] Monocyte percentageOrdered B y: Doug Duenas on 04-07-2025 Monocytes/100 WBC (Bld) 12.8 % High 0-10 [facility] Neutrophil percentageOrdered By: Doug Duenas on 04-07-2025 Neutrophils/100 WBC (Bld) 50.6 % 47-70 [facility] Nucleated red blood cell per centageOrdered By: Doug Duenas on 04-07-2025 Nucleated RBC/100 WBC (Bld) [Ratio] 0 % 0-5 [facility] Platelet countOrdered By: Jim Duenas on 04-07-2025 Platelets (Bld) [#/Vol] 251 10*3/uL 150-450 [facility] Potassium measurement (mass/ volume)Ordered By: Doug Duenas on 04-07-2025 Potassium (Unsp spec) [Mass/Vol] 4.2 mmol/L 3.3-5.1 [facility] RBC Auto (Bld) [#/Vol]Ordere d By: Doug Duenas on 04-07-2025 RBC (Bld) [#/Vol] 4.25 10*6/uL Low 4.6-6.2 [facility] Serum creatinine measurement (mass/volume)Ordered By: Doug Duenas on 04-07-2025 Creatinine [Mass/Vol] 1.02 mg/dL 0.70-1.20 [facility] Serum glucose measurement (m ass/volume)Ordered By: Doug Duenas on 04-07-2025 Glucose [Mass/Vol] 99 mg/dL 70-99 [facility] Serum or plasma calcium yara urement (mass/volume)Ordered By: Doug Duenas on 04-07-2025 Calcium [Mass/Vol] 9.6 mg/dL 7.6-11.0 [facility] Serum or plasma urea nitroge n measurement (mass/volume)Ordered By: Doug Duenas on 04-07-2025 Urea nitrogen [Mass/Vol] 17 mg/dL 4-19 [facility] Sodium levelOrdered By: Doug Duenas on 04-07-2025 Sodium [Moles/Vol] 140 mmol/L 133-145 [facility] Troponin T.cardiac [Mass/vol ume] in Serum or Plasma by High sensitivity methodOrdered By: Doug Duenas on 04-07-2025 Troponin T.cardiac High sensitivity method [Mass/Vol] 28 ng/L High <22 [facility] Troponin T.cardiac High sensitivity method [Mass/Vol] 28 ng/L High <22 [facility] White blood cell (WBC) count Ordered By: Doug Duenas on 04-07-2025 WBC (Bld) [#/Vol] 6.9 10*3/uL 4.4-11.0 [facility] Chest without Contraston Chest without Contrast [facility] Imaging Services [address] [place] [address] Chest without Contrast MR#: [id number] Acct: [id number] Name: ANGELA AGUILAR Rep #: [id number] : 1950 M 75 From: Nikhil ayers MD PCP: Dr. Yoel Do DO Status: REG CLI Study: Chest without Contrast Date of Exam: 03/23/25 Exam# [id number] Ordering Dr: Paras Renee DO PROCEDURE: CHEST WITHOUT CONTRAST 03/23/2025 REASON FOR EXAM: MULTIPLE LUNG NODULES TECHNIQUE: Chest CT without contrast. Coronal and Sagittal reconstruction series were provided. One or more dose reduction techniques were used (e.g., Automated exposure control, adjustment of the mA and/or kV according to patient size, use of iterative reconstruction technique RADIATION DOSE SUMMARY: CTDlvol: 6.31 mGy DLP: 233.53 mGycm COMPARISON: Prior study dated December 22, 2024. FINDINGS: Hardware: None Lymph nodes: No suspicious mediastinal or hilar lymph nodes. Calcified left hilar lymph nodes. Scattered calcified granulomas in the left hemithorax. Heart and Vasculature: Coronary artery calcifications are noted. Atherosclerotic calcifications of the thoracic aorta. Thoracic aorta and pulmonary arteries have normal contours; noncontrast technique limits evaluation. Coronary Artery Calcifications: Present Lungs and Airways: Mild emphysematous changes are present. Stable apical scarring as well as linear scarring at the left lung base. Scattered left calcified granulomas. The previously seen 9 mm nodule in the left upper lobe has decreased in size. It presently measures 8 mm. Pleura: No pleural effusion. Upper Abdomen: Unremarkable Bones: Increased kyphosis. Almost complete collapse of a mid dorsal vertebrae. Loss of height of multiple thoracic vertebrae. CT/Chest without Contrast IMPRESSION: Coronary artery calcification (CAC) is is present Stable emphysematous changes. Calcified left hilar lymph nodes and left granulomas. Interval decrease in size of the previously seen 9 mm nodule in the left upper lobe. Reading Location: [place] [address] CC: Dr. Paras Renee DO; Dr. Yoel Do DO Bus System Operator: Signed Normal [facility] Pulmonary Visit Reporton Pulmonary Visit Report [facility] [address] [place] [address] OFFICE VISIT Date of Service: 01/14/25 MR#: [id number] Acct: [id number] Name: ANGELA AGUILAR Rep #: [id number] : 1950 Provider: Dr. Paras Renee DO Age/Sex: 74/M Location: [facility] Status: Signed Assessment and Plan Assessment and Plan (1) Chronic obstructive asthma (with obstructive pulmonary disease): Status: Acute Plan: The patient remains symptomatically well-controlled on Breztri and as needed albuterol, both of which will be continued without change. The patient was advised to contact our office with any worsening in his breathing quality and/or increasing reliance on his short acting beta agonist. (2) History of tobacco use: Status: Inactive Comment: Quit 6 years ago with no passive smoke exposures now Plan: Ongoing tobacco cessation was strongly recommended. (3) Nocturnal hypoxia: Status: Inactive Plan: Continue 2 L/min of supplemental oxygen on a nightly basis as prescribed. (4) Multiple lung nodules on CT: Status: Chronic Plan: The patient's last CT scan from December 22, 2024 demonstrated several subcentimeter pulmonary nodules, the largest of which was approximately 9 mm in the left upper lobe. Recommend follow-up CT chest in 3 months. Orders have been placed accordingly. Orders: Orders Chest without Contrast 03/23/25 R91.8 - Other nonspecific abnormal finding of lung field HPI HPI Comments Details: The patient is a 74-year-old male who presents to the clinic today for a routine scheduled follow-up office visit. If you recall the patient was previously under the care of Dr. Eduardo Meeks until her departure. The patient had pulmonary function studies completed in February 2023 which demonstrated a very severe large airways obstructive ventilatory defect. He has been managed medically for a COPD/asthma overlap syndrome along with nocturnal hypoxemia requiring 2 L/min of supplemental oxygen with sleep. Follow-up CT chest completed in December 2024 demonstrated bilateral emphysematous changes with several subcentimeter pulmonary nodules, the largest of which measured 9 mm in the left upper lobe, unchanged from prior examination. Today, the patient reported overall stability in his breathing quality. He has remained compliant with the use of Breztri and reports occasional use of his rescue inhaler. He has remained compliant with use of supplemental oxygen on a nightly basis. He currently denies any chest tightness, wheezing or cough. Intake Vital Signs 11/23/24 07:29 01/14/25 08:30 Height 5 ft 6 in 5 ft 6 in Weight: 124 lb BMI 20.0 BP 136/76 H Blood Pressure Location Rt brachial Position Sitting Respiration 16 Pulse 84 Pulse Source Monitor Temp 97.4 F L Temperature Source Temporal Artery Pulse Oximetry (%) 95 Oxygen Delivery Method room air Intake Visit Reasons: 6 wk FU-PER [facility] Transportation Sales Consultant Required: No DME Vendor: [employer] Accompanied by: Is patient in pain?: No Allergies Sulfa (Sulfonamide Antibiotics) Allergy (Verified 01/14/25 10:18) Unknown Medications ???Medication ???Instructions ???Recorded ???Confirmed ???Type mirtazapine 15 mg tablet 15 mg PO QHS mental health 2 01/14/25 History ipratropium bromide 21 mcg (0.03 2 spray intranasal BID-TID PRN 01/14/25 Rx %) nasal spray allergy symptoms #30 mL potassium chloride 10 mEq 10 meq PO DAILY supplement #30 tab s 11/20/22 01/14/25 Rx tablet,extended release budesonide 160 mcg-glycopyr 9 2 inh inhalation BID breathing 01/14/25 Rx mcg-formot 4.8 mcg/actuation HFA #10.7 grams inhaler (Breztri Aerosphere) alprazolam 1 mg tablet 0.5 mg PO QHS sleep 10/22/2401/14 History venlafaxine 75 mg capsule,extended 75 mg PO DAILY mental health 01/14/25 History release 24 hr albuterol sulfate 90 mcg/actuation 2 inh inhalation Q6H PRN shortne ss 11/23/24 01/14/25 Rx aerosol inhaler of breath or wheezing #8.5 grams cetirizine 10 mg tablet 10 mg PO DAILY allergy symptoms 01/14/25 Rx #90 tabs fluticasone propionate 50 2 spray intranasal DAILY #16 grams 11/23/24 01/14/25 Rx mcg/actuation nasal spray,suspension Have you fallen in the past year?: No [facility] Medical History Difficulty urinating Respiratory insufficiency Exposure to environmental toxic substances IPF (idiopathic pulmonary fibrosis) Bronchiectasis COPD with acute exacerbation Nocturnal hypoxia History of tobacco use Perennial non-allergic rhinitis Stage 3 severe chronic obstructive pulmonary disease by Global Initiative for Chronic Obstructive Lung Disease classification Chronic obstructive asthma (with obs (more content not included)... Normal [facility] Chest without Contraston Chest without Contrast [facility] Imaging Services [address] [place] [address] Chest without Contrast MR#: [id number] Acct: [id number] Name: ANGELA AGUILAR Rep #: [id number] : 1950 M 74 From: Scarlett Colon MD PCP: Dr. Yoel Do, DO Status: REG CLI Study: Chest without Contrast Date of Exam: 12/22/24 Exam# [id number] Ordering Dr: Jackelin Davis LIQUID YEAST SUPERVISOR LIQUID YEAST SUPERVISOR-C PROCEDURE: CHEST WITHOUT CONTRAST 12/22/2024 REASON FOR EXAM: GROUNDGLASS TECHNIQUE: Chest CT without contrast. Coronal and Sagittal reconstruction series were provided. One or more dose reduction techniques were used (e.g., Automated exposure control, adjustment of the mA and/or kV according to patient size, use of iterative reconstruction technique RADIATION DOSE SUMMARY: CTDlvol: 6.53 mGy DLP: 241.58 mGycm COMPARISON: 10/22/2024 FINDINGS: Note that evaluation of the vasculature, baljeet, and soft tissues is limited in the absence of IV contrast. Heart/pericardium: Mild but multivessel coronary atherosclerosis and/or stents. Trace aortic annular calcification. Aorta: Mild/moderate calcific atherosclerosis. Pulmonary arteries: Normal in caliber. Lymph nodes: Chronic granulomatous disease. Prominent but technically nonenlarged precarinal node, 9 mm short axis. Lungs/pleura: Emphysema. Biapical pleural/parenchymal scarring. Mild dependent atelectasis/scarring. Improved dependent airspace disease. Similar 4 mm LEFT lower lobe nodule (series 2, image 61). Similar 9 x 8 mm LEFT upper lobe nodule difficult to differentiate from adjacent bronchovascular structures (series 2, image 57). New 4 mm LEFT upper lobe nodule (image 51). Similar additional 3 mm LEFT upper lobe nodule (image 55). Granulomas.. Airways: Similar central bronchial wall thickening. Chest wall: Unremarkable. Upper abdomen: Chronic granulomatous disease.. Musculoskeletal: Marked demineralization. Similar multilevel thoracic compression deformities. Multilevel spondylosis. Mild scoliosis. Similar subacute to chronic nondisplaced LEFT rib fractures.. CT/Chest without Contrast IMPRESSION: 1. Improved dependent bilateral lower lobe airspace disease with minimal residual likely atelectasis/scarring. 2. Emphysema with nonspecific pulmonary nodules as detailed, largest 9 mm in the LEFT upper lobe unchanged from recent exam, including a new 4 mm LEFT upper lobe nodule. Recommend CT chest in 3 months per the Fleischner Society recommendations, presuming no history of known malignancy or immunosuppression. Additionally given emphysema, consider ongoing lung cancer screening per the below. 3. Similar mild bronchial wall thickening which may be smoking-related or indicative of bronchitis. 4. Additional description as above. The USPSTF recommends annual screening for lung cancer with low-dose computed tomography (LDCT) in adults aged 50 to 80 years who have a 20 pack-year smoking history and currently smoke or have quit within the past 15 years. Reading Location: [id number] CC: JOE Davis; Dr. Yoel Do DO Bus System Operator: Signed Normal [facility] Pulmonary Visit Reporton Pulmonary Visit Report [facility] [address] [place] [address] OFFICE VISIT Date of Service: 11/23/24 MR#: [id number] Acct: [id number] Name: ANGELA AGUILAR Rep #: [id number] : 1950 Provider: JOE Davis Age/Sex: 74/M Location: [facility] Status: Signed Assessment and Plan Assessment and Plan (1) Asthma-COPD overlap syndrome: Status: Chronic Plan: Deteriorated. I do not believe he is in exacerbation today, however after completing the prednisone he noticed that his cough returned. I believe this could be secondary to seasonal allergies and therefore I am going to optimize his care by adding cetirizine 10 mg tablet and fluticasone nasal spray. We will discuss his response to therapy when he returns to the office. Continue Breztri. (2) Abnormal CT scan, chest: Status: Acute Plan: Recent CT of the chest showed bilateral groundglass opacities, unclear if this was secondary to pneumonia or could be chronic interstitial pulmonary fibrosis. Repeating a CT scan of the chest to be completed [address] scan. This will evaluate for improvement or resolution if this was pneumonia. However, if the groundglass opacities persist this is an indicator of interstitial pulmonary fibrosis and management can be discussed at the follow-up visit. Autoimmune workup was negative. Follow-up with Dr. Renee in 6 weeks to discuss test results. Orders: Orders Chest without Contrast 1 Month R93.89 - Abnormal findings on diagnostic imaging of other specified body structures Medications: New fluticasone propionate 50 mcg/actuation 2 sprays intranasal DAILY 16 grams 3RF J45.909 - Unspecified asthma, uncomplicated, R93.89 - Abnormal findings on diagnostic imaging of other specified body structures cetirizine 10 mg PO DAILY PRN 90 tabs 3RF allergy symptoms R93.89 - Abnormal findings on diagnostic imaging of other specified body structures cetirizine 10 mg PO DAILY 90 tabs 3RF allergy symptoms R93.89 - Abnormal findings on diagnostic imaging of other specified body structures Refilled albuterol sulfate 90 mcg/actuation 2 inhalations inhalation Q6H PRN 8.5 grams 11RF shortness of breath or wheezing R93.89 - Abnormal findings on diagnostic imaging of other specified body structures Plan Details Follow Up: 6 Weeks (DMB) HPI 1 Y FU Chief Complaint: Daily cough HPI Comments Details: This patient presents to the office today for follow-up of his asthma/COPD overlap syndrome. He is ambulatory, currently on room air and accompanied today by his . He was recently hospitalized at [facility] from October 22 through October 23, 2024 for pneumonia with hypoxic respiratory failure. He had presented to the emergency department with complaints of shortness of breath and wheezing. CT scan of the chest was negative for pulmonary emboli but did show bilateral groundglass opacities with bronchiectasis and honeycombing most compatible with interstitial pulmonary fibrosis. He was hypoxic requiring a small amount of supplemental oxygen initially, however walking oximetry was performed prior to being discharged from the hospital. It was determined that he did not require any supplemental oxygen. He was treated with aerosol treatments, IV antibiotics and systemic corticosteroids. He was discharged on a prednisone burst. Pulmonology consult resulted in blood work to evaluate for autoimmune disease, all was negative. Patient completed the prednisone burst as prescribed. He did notice that a few days later he developed a nonproductive cough. He has not recently required the use of his supplemental oxygen. He has a portable pulse oximeter at home and has been checking saturations randomly throughout the day. However, he has not checked it on ambulation. He has noted that on room air saturations are typically 90 to 95%. He does have shortness of breath on exertion. He has a daily dry cough but denies any sputum production or hemoptysis. He reports wheezing and sinus congestion as well as sinus drainage. He denies any chest pain or palpitations. He has not had any fever, chills or body aches. Intake Vital Signs 12/05/23 06:29 10/23/24 12:44 11/23/24 07:29 Height 5 ft 6 in 5 ft 6 in 5 ft 6 in Weight: 122 lb BMI 19.7 BP 136/71 H Blood Pressure Location Lt brachial Position Sitting Respiration 18 Pulse 95 Pulse Source Monitor Temp 97.6 F L Temperature Source Temporal Artery Pulse Oximetry (%) 94 Oxygen Delivery Method room air Intake Visit Reasons: 1 Y FU Transportation Sales Consultant Required: No Accompanied by: Allergies Sulfa (Sulfonamide Antibiotics) Allergy (Verified 11/23/24 09:02) Unknown Medications ???Medication ???Instructions ???Recorded ???Confirmed ???Type craig (more content not included)... Normal [facility] Culture, Blood (WB)on 2024 CUB Blood cultures x2, f rom two different sites No growth in 5 days. Normal [facility] Comment on above: Performed By: #### L 500.2500, L501.4021, L100.0100 #### [facility] Laboratory [address] [place], [address] CAROLINE w/ Reflex Mult Confirmon 10-26-2024 ANTI-DNA (DS)AB TNP Normal [facility] Comment on above: Performed By: #### L 4600.0100, L3100.5450, L505.7010, L3300.1200 #### [facility] [address] [place], [address] ANTISCLERODERM TNP Normal [facility] Comment on above: Performed By: #### L 4600.0100, L3100.5450, L505.7010, L3300.1200 #### [facility] [address] [place], [address] ANCAon 10-26-2024 Atypical pANCA <1:20 Normal Neg:<1:20 [facility] Comment on above: Result Comment: The atypical pANCA pattern has been observed in a significant percentage of patients with ulcerative colitis, primary sclerosing cholangitis and autoimmune hepatitis. Performed By: #### L 4600.0100, L3100.5450, L505.7010, L3300.1200 #### [facility] [address] [place], [address] Cytoplasmic Ab <1:20 Normal Neg:<1:20 [facility] Comment on above: Performed By: #### L 4600.0100, L3100.5450, L505.7010, L3300.1200 #### [facility] [address] [place], [address] Perinuclear Ab. <1:20 Normal Neg:<1:20 [facility] Comment on above: Result Comment: The presence of positive fluorescence exhibiting P-ANCA or C-ANCA patterns alone is not specific for the diagnosis of Timi's Granulomatosis (WG) or microscopic polyangiitis. Decisions about treatment should not be based solely on ANCA IFA results. The International ANCA Group Consensus recommends follow up testing of positive sera with both GA- 3 and MPO-ANCA enzyme immunoassays. As many as 5% serum samples are positive only by EIA. Ref. AM J Clin Pathol 1999;111:507-513. Performed By: #### L 4600.0100, L3100.5450, [id number], L3300.1200 #### [facility] [address] [place], [address] CCP IgG Antibodieson 025 CCP IgG Ab. 1 units Normal 0-19 [facility] Comment on above: Result Comment: Nega tive <20 Weak positive 20 - 39 Moderate positive 40 - 59 Strong positive >59 Performed at: [facility] [address] [place], [place] [id number] Neighborhood Planner: Tyrone Davenport PhD, Phone: [phone] Performed By: #### L 4600.0100, L3100.5450, [id number], L3300.1200 #### [facility] [address] [place], [address] CAROLINE serumOrdered By: Paars sandhu on 10-23-2024 Anti-Nuclear Antibody Screen Negative Negative [facility] Comment on above: Performed at: [facility] [id number] [place], [place] [id number] Director: Tyrone Davenport PhD, Phone: [phone] Absolute neutrophil countOrd ered By: Pk Escobar on 10-23-2024 Neutrophils (Bld) [#/Vol] 8.6 10*3/uL High 2.0-7.7 [facility] Albumin to globulin ratioOrd ered By: Pk Escobar on 10-23-2024 Albumin/Globulin [Mass ratio] 0.7 {ratio} Low 0.9-2.4 [facility] Atypical perinuclear antineu trophil cytoplasmic antibodies measurementOrdered By: Paras Renee on 10-23-2024 Atypical p-ANCA <1:20 titer Neg:<1:20 [facility] Comment on above: The atypical pANCA p attern has been observed in asignificant percentage of patients with ulcerative colitis,primary sclerosing cholangitis and autoimmune hepatitis. Basophil percentageOrdered B y: Pk Escobar on 10-23-2024 Basophils/100 WBC (Bld) 0.1 % 0-1 [facility] Bilirubin, totalOrdered By: Pk Escobar on 10-23-2024 Bilirubin [Mass/Vol] 0.40 mg/dL 0.20-1.00 [facility] Comment on above: For patients on eltr ombopag therapy, use of Dimension [place] TBIL is not recommended. Blood urea nitrogen (BUN)/cr eatinine ratioOrdered By: Pk Escobar on 10-23-2024 Urea nitrogen/Creatinine [Mass ratio] 14.4 mg/mg 10-20 [facility] CBC W/Diff, Automatedon 10-10 Absolute Lymph 0.67 X10 3/uL Low 0.83-4.51 [facility] Comment on above: Performed By: #### L 501.9520 #### [facility] [address] [place], [address] Absolute Neut 8.6 X10 3/uL High 2.0-7.7 [facility] Comment on above: Performed By: #### L 501.9520 #### [facility] [address] [place], [address] Basophils/100 WBC (Bld) 0.1 % Normal 0-1 [facility] Comment on above: Performed By: #### L 501.9520 #### [facility] [address] [place], [address] Eosinophils/100 WBC (Bld) 0.0 % Normal 0-5 [facility] Comment on above: Performed By: #### L 501.9520 #### [facility] [address] [place], [address] Erythrocyte distribution width (RBC) [Ratio] 13.2 % Normal 11.6-14.6 [facility] Comment on above: Performed By: #### L 501.9520 #### [facility] [address] [place], [address] Hematocrit (Bld) [Volume fraction] 32.5 % Low 40-54 [facility] Comment on above: Performed By: #### L 501.9520 #### [facility] [address] [place], [address] Hemoglobin (Bld) [Mass/Vol] 10.5 g/dL Low 13.0-16.5 [facility] Comment on above: Performed By: #### L 501.9520 #### [facility] [address] [place], [address] IG% 0.300 Normal 0.0-0.9 [facility] Comment on above: Result Comment: IG% - Immature Granulocytes (promyelocytes, myelocytes and metamyelocytes) > 1% indicates that a LEFT SHIFT is Present. Performed By: #### L 501.9520 #### [facility] [facility] [address] [place], [address] Lymphocytes/100 WBC (Bld) 7.0 % Low 19-41 [facility] Comment on above: Performed By: #### L [id number] #### [facility] [address] [place], [address] MCH (RBC) [Entitic mass] 30.7 pg Normal 27.0-32.0 [facility] Comment on above: Performed By: #### L [id number] #### [facility] [address] [place], [address] MCHC (RBC) [Mass/Vol] 32.3 g/dL Normal 32-36 [facility] Comment on above: Performed By: #### L [id number] #### [facility] [address] [place], [address] MCV (RBC) [Entitic vol] 95.0 fL High 80-94 [facility] Comment on above: Performed By: #### L [id number] #### [facility] [address] [place], [address] Monocytes/100 WBC (Bld) 2.2 % Normal 0-10 [facility] Comment on above: Performed By: #### L 501 #### [facility] [address] [place], [address] Neutrophils/100 WBC (Bld) 90.4 % High 47-70 [facility] Comment on above: Performed By: #### L [id number] #### [facility] [address] [place], [address] Nucleated RBC (Bld) [#/Vol] 0 10*3/uL Normal 0-5 [facility] Comment on above: Performed By: #### L [id number] #### [facility] [address] [place], [address] Platelet mean volume (Bld) [Entitic vol] 9.5 fL Normal 6.2-12.0 [facility] Comment on above: Performed By: #### L [id number] #### [facility] [address] [place], [address] Platelets (Bld) [#/Vol] 212 10*3/uL Normal 150-450 [facility] Comment on above: Performed By: #### L [id number] #### [facility] [address] [place], [address] RBC (Bld) [#/Vol] 3.42 10*6/uL Low 4.6-6.2 [facility] Comment on above: Performed By: #### L [id number] #### [facility] [address] [place], [address] RDW SD 46.5 fl High 35.1-43.9 [facility] Comment on above: Performed By: #### L [id number] #### [facility] [address] [place], [address] WBC (Bld) [#/Vol] 9.5 10*3/uL Normal 4.4-11.0 [facility] Comment on above: Performed By: #### L [id number] #### [facility] [address] [place], [address] Carbon dioxide measurementOr dered By: Pk Escobar on 10-23-2024 CO2 [Moles/Vol] 28.0 mmol/L 21.0-32.0 [facility] Centromere B antibody assayO rdered By: Paras Renee on 10-23-2024 [facility]re [facility] on above: Test not performed Chloride measurementOrdered By: Pk Escobar on 10-23-2024 Chloride [Moles/Vol] 106 mmol/L 98-107 [facility] Chromatin antibody assayOrde red By: Paras Renee on 10-23-2024 Antichromatin Antibodies [facility] Comment on above: Test not performed Comprehensive Metabolic Prof ilon 10-23-2024 Albumin [Mass/Vol] 2.5 g/dL Low 3.2-5.0 [facility] Comment on above: Performed By: #### L [id number] #### [facility] [address] [place], [address] Albumin/Globulin [Mass ratio] 0.7 {ratio} Low 0.9-2.4 [facility] Comment on above: Performed By: #### L [id number] #### [facility] [address] [place], [address] ALK P 52 U/L Normal 45-117 [facility] Comment on above: Performed By: #### L [id number] #### [facility] [address] [place], [address] ALT [Catalytic activity/Vol] 14 U/L Low 16-61 [facility] Comment on above: Performed By: #### L [id number] #### [facility] [address] [place], [address] AST [Catalytic activity/Vol] 22 U/L Normal 15-37 [facility] Comment on above: Performed By: #### L 119.3472 #### [facility] [address] [place], [address] Bilirubin [Mass/Vol] 0.40 mg/dL Normal 0.20-1.00 [facility] Comment on above: Result Comment: For patients on eltrombopag therapy, use of Dimension [place] TBIL is not recommended. Performed By: #### L [id number] #### [facility] [address] [place], [address] BUN/CRE 14.4 RATIO Normal 10-20 [facility] Comment on above: Performed By: #### L 364.1039 #### [facility] [address] [place], [address] CA,Total 8.6 mg/dL Normal 8.5-10.1 [facility] Comment on above: Performed By: #### L 275.3430 #### [facility] [address] [place], [address] Chloride [Moles/Vol] 106 mmol/L Normal 98-107 [facility] Comment on above: Performed By: #### L [id number] #### [facility] [address] [place], [address] CO2 [Moles/Vol] 28.0 mmol/L Normal 21.0-32.0 [facility] Comment on above: Performed By: #### L 078.9539 #### [facility] [address] [place], [address] Creatinine [Mass/Vol] 0.83 mg/dL Normal 0.70-1.30 [facility] Comment on above: Result Comment: The validity of the calculated GFR GFRAA in patients over 70 years has not been determined. Clinical correlation is essential. Performed By: #### L [id number] #### [facility] [address] [place], [address] ECRCL 59.54 ml/min Normal [facility] Comment on above: Performed By: #### L [id number] #### [facility] [address] [place], [address] EST GFR - AA 115 mL/min Normal >60 [facility] Comment on above: Result Comment: Afri can Turkish GFR Calc Performed By: #### L [id number] #### [facility] [address] [place], [address] GAP 4 Low 5-15 [facility] Comment on above: Performed By: #### L [id number] #### [facility] [address] [place], [address] GFR/1.73 sq M.predicted among non-blacks MDRD (S/P/Bld) [Vol rate/Area] 95 mL/min/{1.73_m2} Normal >60 [facility] Comment on above: Result Comment: Non- GFR Calc Performed By: #### L [id number] #### [facility] [address] [place], [address] Globulin (S) [Mass/Vol] 3.8 g/dL Normal 2.2-4.2 [facility] Comment on above: Performed By: #### L [id number] #### [facility] [address] [place], [address] Glucose [Mass/Vol] 150 mg/dL High 74-106 [facility] Comment on above: Result Comment: Fast ing Glucose result greater than or equal to 126 mg/dL suggests DIABETES MELLITUS per A.D.A. criteria. Performed By: #### L [id number] #### [facility] [address] [place], [address] Potassium [Moles/Vol] 4.1 mmol/L Normal 3.5-5.1 [facility] Comment on above: Performed By: #### L [id number] #### [facility] [address] [place], [address] Sodium [Moles/Vol] 138 mmol/L Normal 136-145 [facility] Comment on above: Performed By: #### L [id number] #### [facility] [address] [place], [address] T PROT 6.3 g/dL Low 6.4-8.2 [facility] Comment on above: Performed By: #### L [id number] #### [facility] [address] [place], [address] Urea nitrogen [Mass/Vol] 12 mg/dL Normal 7-18 [facility] Comment on above: Performed By: #### L [id number] #### [facility] [address] [place], [address] Consultation - Intensiviston 10-23-2024 Consultation - Finance Teacher [facility] Medical Records Department [address] [place] [address] Consultation - Finance Teacher 10/23/24 1151 MR#: [id number] Acct: [id number] Name: ANGELA AGUILAR Rep #: [id number] : 1950 74 From: Paras Renee DO PCP: Dr. Yoel Do, DO Status:ADM IN Location: [place] [address] Assessment Plan Assessment/Plan (1) Asthma-COPD overlap syndrome: PLAN: Plan RECOMMENDATIONS: 1. Continue scheduled bronchodilators and steroids. 2. Okay to discontinue antimicrobials from my perspective. 3. At discharge, recommend transitioning the patient to prednisone 40 mg daily x 5 days. 4. Perform walking oximetry study prior to consideration for discharge home. 5. Check CAROLINE with reflex, ANCA, rheumatoid factor and CCP antibodies. 6. Will sign off at this time. Please call with any additional questions. IMPRESSIONS: 1. 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 Low clinical index suspicion for underlying pneumonia. Therefore, antibiotics can be discontinued from my perspective. I would recommend continuing bronchodilator therapy along with steroids. At discharge, the patient can be transition to prednisone 40 mg daily, with plans to complete a 5-day burst. Recommend resuming Breztri at discharge and following up in the pulmonary medicine clinic as scheduled on December 08. Given the subpleural interstitial changes noted in the lung bases with early honeycomb formation, will check CAROLINE with reflex, ANCA, rheumatoid factor and CCP antibodies. The patient is maintaining appropriate oxygen saturations on room air. Recommend performing ambulatory walking study prior to consideration for discharge home. Follow-up in the pulmonary medicine clinic as scheduled on December 08. 2. Left upper lobe pulmonary nodule Measuring approximately 9 mm in size on my estimation. Recommend follow-up CT scan in 3 months on outpatient basis. This note was generated with [employer] dictation software. It may contain incorrect words, spelling, and punctuation that were not noted in checking the note before signing. HPI Consult Data Date of Consult: 10/23/24 HPI Narrative Reason for Consultation: Shortness of breath HPI Narrative: The patient is a 74-year-old male, with a history as outlined below, who presented to the emergency department on October 22 with shortness of breath and chest tightness. The patient has a known history of very severe COPD/asthma overlap syndrome along with nocturnal hypoxemia requiring 2 L/min of supplemental oxygen with sleep. 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 Following this exposure, the patient experienced increasing shortness of breath and chest tightness. He has remained compliant with his triple therapy inhaler regimen. The patient does report a mild cough but no sputum production. On presentation to the emergency department, the patient was noted to have a temperature of 99.4 ???F. He was otherwise hemodynamically stable and maintaining appropriate oxygen saturations on room air. Laboratory evaluation was notable for a white blood cell count of 12,000. Arterial blood gas was notable for a pH of 7.4 with a pCO2 of 44 and pO2 of 71. Respiratory viral panel was negative. CTA chest showed no evidence for pulmonary embolism. There was, however, evidence of moderate emphysema and lower lobe subpleural groundglass opacities with early evidence of honeycomb formation. The patient was placed on antimicrobials, bronchodilators and steroids. He was subsequently admitted to the progressive care unit for further management. [facility] Medical History Perennial non-allergic rhinitis Stage 3 severe chronic obstructive pulmonary disease by Global Initiative for Chronic Obstructive Lung Disease classification Chronic obstructive asthma (with obstructive pulmonary disease) Allergic rhinitis due to allergen Left wrist Home Medications ???Medication ???Instructions ???Recorded ???Last Taken ???Type mirtazapine 15 mg tablet 15 mg PO QHS 08/13/22 10/21/24 His tory ipratropium bromide 21 mcg (0.03 2 spray intranasal BID-TID PRN Unknown Rx %) nasal spray allergy symptoms #30 mL potassium chloride 10 mEq 10 meq PO DAILY #30 tabs 11/20/22 Unknown Rx tablet,extended release albuterol sulfate 90 mcg/actuation 2 inh inhalation Q6H PRN shortne ss 09/24/23 Unknown Rx aerosol inhaler of breath or wheezing #8.5 grams budesonide 160 mcg-glycopyr 9 2 inh inhalation BID #10.7 grams 1 10/25/23 Unknown Rx mcg-formot 4.8 mcg/actuation HFA inhaler (Breztri Aerosphere) alprazolam 1 mg tablet 0.5 mg PO QHS 10/22/24 10/21/24 Hi story meloxicam 15 mg t (more content not included)... Normal [facility] Cyclic citrullinated peptide IgG QnOrdered By: Paras Víctor on 10-23-2024 Cyclic Citrullinated Peptide IgG Ab 1 units 0-19 [facility] Comment on above: Negative <20 Weak po sitive 20 - 39 Moderate positive 40 - 59 Strong positive >59Performed at: [address] [id number] Director: Tyrone Davenport PhD, Phone: [phone] DNA double strand Ab Qn (S)O rdered By: Paras Renee on 10-23-2024 Anti-Double Strand DNA Antibody TNP [facility] Comment on above: Test not performed Discharge Instructionon 10-10 Discharge Instruction [facility] Medical Records Department [address] [place] [address] Instructions for Home/Discharge Instructions 10/23/24 1624 MR#: [id number] Acct: [id number] Name: ANGELA AGUILAR Rep #: [id number] : 1950 74 From: Scarlett Morse DO PCP: Dr. Yoel Do DO Status:ADM IN Discharge Instructions Diet Discharge Diet: No restrictions DC O2, CPAP, BIPAP needs RN Home O2 Qualification: Home O2 Qualification: Is the patient on home oxygen No 10/23/24 16:12 Home O2 Qualification: AT REST 1- Pulse Ox at rest 96 10/23/24 16:12 Home O2 Qualification: WITH AMBULATION 1- Pulse Ox with ambulation 90 10/23/24 16:12 1- Oxygen Flow Rate with 0 10/23/24 16:12 ambulation Home O2 Discharge instructions: No Dressing / Incision Discharge Activity: Return to Normal Activity Weight Bearing Status: Full weight bearing Follow Up Care Test Results: Test results from this visit will be discussed in further detail at your follow-up appointment, if applicable. Discharge Plan Admission Admit Date/Time: 10/22/24 20:19 Primary Reason for Your Visit: Exacerbation of asthma/COPD Attending Provider: Scarlett Morse Primary Care Provider: Yoel Do Consulting Providers: Pk Lowery Discharge Orders/Prescriptions Prescriptions: New prednisone 20 mg tablet 40 mg PO DAILY Qty: 14 0RF Rx Instructions: start on 10/24/24 Continued mirtazapine 15 mg tablet 15 mg PO QHS ipratropium bromide 21 mcg (0.03 %) spray,non-aerosol 2 spray intranasal BID-TID PRN (Reason: allergy symptoms) Qty: 30 6RF Rx Instructions: administer into each nostril potassium chloride 10 mEq tablet extended release 10 meq PO DAILY Qty: 30 3RF Patient Comments: PT STATES OCCASIONALLY meloxicam 15 mg tablet 15 mg PO DAILY alprazolam 1 mg tablet 0.5 mg PO QHS venlafaxine 75 mg capsule,extended release 24hr 75 mg PO DAILY albuterol sulfate 90 mcg/actuation HFA aerosol inhaler 2 inh inhalation Q6H PRN (Reason: shortness of breath or wheezing) Qty: 8.5 11RF Breztri Aerosphere 160-9-4.8 mcg/actuation HFA aerosol inhaler 2 inh inhalation BID Qty: 10.7 12RF Referrals / Follow Up: Paras Renee DO [Med Staff - Active Staff] - See Referral Note (as scheduled) Yoel Do DO [Primary Care Provider] - Disposition Disposition (needs filled in before D/C Order can be placed): Home, Self Care 10/23/24 1639 Scarlett Morse DO CC: Dr. Pk Lowery DO; Dr. Yoel Do DO Signed Normal [facility] Eosinophil percentageOrdered By: Pk Escobar on 10-23-2024 Eosinophils/100 WBC (Bld) 0.0 % 0-5 [facility] Erythrocyte distribution wid th (RBC) [Ratio]Ordered By: Pk Escobar on 10-23-2024 Erythrocyte distribution width (RBC) [Entitic vol] 46.5 fL High 35.1-43.9 [facility] Erythrocyte distribution wid th ratioOrdered By: Pk Escobar on 10-23-2024 Erythrocyte distribution width (RBC) [Ratio] 13.2 % 11.6-14.6 [facility] Estimated glomerular filtrat ion rate (GFR) AmericanOrdered By: Pk Escobar on 10-23-2024 Estimated GFR (MDRD) Amer 115 mL/min >60 [facility] Comment on above: GFR Calc Estimation of creatinine ashlyn aranceOrdered By: Pk Escobar on 10-23-2024 Estimated Creatinine Clearance Calc 59.54 ml/min [facility] Glomerular filtration rate ( GFR) estimationOrdered By: Pk Escobar on 10-23-2024 Estimated GFR (MDRD) Non-Af Amer 95 mL/min >60 [facility] Comment on above: Non- GFR Calc Glucose measurementOrdered B y: Pk Escobar on 10-23-2024 Glucose [Mass/Vol] 150 mg/dL High 74-106 [facility] Comment on above: Fasting Glucose resu lt greater than or equal to 126 mg/dL suggests DIABETES MELLITUS per A.D.A. criteria. Hematocrit Auto (Bld) [Volum e fraction]Ordered By: Pk Escobar on 10-23-2024 Hematocrit (Bld) [Volume fraction] 32.5 % Low 40-54 [facility] Hemoglobin measurementOrdere d By: Pk Escobar on 10-23-2024 Hemoglobin (Bld) [Mass/Vol] 10.5 g/dL Low 13.0-16.5 [facility] Immature granulocytes/100 WB C Auto (Bld)Ordered By: Pk Escobar on 10-23-2024 Immature granulocytes/100 WBC (Bld) 0.300 % 0.0-0.9 [facility] Comment on above: IG% - Immature Granu locytes (promyelocytes, myelocytes and metamyelocytes) > 1% indicates that a LEFT SHIFT is Present. Geraldine-1 antibody assayOrdered B y: Paras Renee on 10-23-2024 GERALDINE-1 Antibody TNP [facility] Comment on above: Test not performed Laboratory - Chemistry and C hemistry - challengeOrdered By: Pk Escobar on 10-23-2024 AST [Catalytic activity/Vol] 22 U/L 15-37 [facility] Lymphocytes Auto (Unsp spec) [#/Vol]Ordered By: Pk Escobar on 10-23-2024 Lymphocytes (Bld) [#/Vol] 0.67 10*3/uL Low 0.83-4.51 [facility] Lymphocytes/100 WBC Auto (Un sp spec)Ordered By: Pk Escobar on 10-23-2024 Lymphocytes/100 WBC (Bld) 7.0 % Low 19-41 [facility] MCV (mean corpuscular volume ) determinationOrdered By: Pk Escobar on 10-23-2024 MCV (RBC) [Entitic vol] 95.0 fL High 80-94 [facility] Magnesiumon 10-23-2024 Magnesium [Mass/Vol] 2.1 mg/dL Normal 1.6-2.6 [facility] Comment on above: Performed By: #### L 500.2500, L501.4021, L100.0100 #### [facility] [address] [place], [address] Magnesium measurementOrdered By: Pk Escobar on 10-23-2024 Magnesium [Mass/Vol] 2.1 mg/dL 1.6-2.6 [facility] Mean corpuscular hemoglobin (MCH) determinationOrdered By: Pk Escobar on 10-23-2024 MCH (RBC) [Entitic mass] 30.7 pg 27.0-32.0 [facility] Mean corpuscular hemoglobin concentration (MCHC) determinationOrdered By: Pk Escobar on 10-23-2024 MCHC (RBC) [Mass/Vol] 32.3 g/dL 32-36 [facility] Mean platelet volume determi nationOrdered By: Pk Escobar on 10-23-2024 Platelet mean volume (Bld) [Entitic vol] 9.5 fL 6.2-12.0 [facility] Monocyte percentageOrdered B y: Pk Escobar on 10-23-2024 Monocytes/100 WBC (Bld) 2.2 % 0-10 [facility] Neutrophil cytoplasmic Ab.cl assic Qn (S)Ordered By: Paras Renee on 10-23-2024 Cytoplasmic ANCA (c-ANCA) Antibody <1:20 titer Neg:<1:20 [facility] Neutrophil cytoplasmic Ab.pe rinuclear IF (S) [Titer]Ordered By: Paras Renee on 10-23-2024 Perinuclear ANCA (p-ANCA) Antibody <1:20 titer Neg:<1:20 [facility] Comment on above: The presence of posi tive fluorescence exhibiting P-ANCA orC- ANCA patterns alone is not specific for the diagnosis ofWegener's Granulomatosis (WG) or microscopic polyangiitis.Decisions about treatment should not be based solely onANCA IFA results. The International ANCA Group Consensusrecommends follow up testing of positive sera with both GA-3 and MPO-ANCA enzyme immunoassays. As many as 5% serumsamples are positive only by EIA. Ref. AM J Clin Jaswuy8524;111:507-513. Neutrophil percentageOrdered By: Pk Escobar on 10-23-2024 Neutrophils/100 WBC (Bld) 90.4 % High 47-70 [facility] Nucleated red blood cell per centageOrdered By: Pk Escobar on 10-23-2024 Nucleated RBC/100 WBC (Bld) [Ratio] 0 % 0-5 [facility] Phosphoruson 10-23-2024 Phosphate [Mass/Vol] 3.2 mg/dL Normal 2.5-4.9 [facility] Comment on above: Performed By: #### L 501.9552 #### [facility] [address] [place] [address], [address] Phosphorus measurementOrdere d By: Pk Escobar on 10-23-2024 Phosphorus Level 3.2 mg/dL 2.5-4.9 [facility] Platelet countOrdered By: Damion Escobar on 10-23-2024 Platelets (Bld) [#/Vol] 212 10*3/uL 150-450 [facility] Potassium measurementOrdered By: Pk Escobar on 10-23-2024 Potassium [Moles/Vol] 4.1 mmol/L 3.5-5.1 [facility] RBC Auto (Bld) [#/Vol]Ordere d By: Pk Escobar on 10-23-2024 RBC (Bld) [#/Vol] 3.42 10*6/uL Low 4.6-6.2 [facility] RESPIRATORY PANEL MOLECULARo n 10-23-2024 RP PANEL ADENOVIRUS Not Detected INFLUENZA A Not Detected INFLUENZA A (SUBTYPE H1) Not Detected INFLUENZA A (SUBTYPE H3) Not Detected INFLUENZA B Not Detected HUMAN METAPHNEUMO Not Detected PARAINFLUENZA 1 Not Detected PARAINFLUENZA 2 Not Detected PARAINFLUENZA 3 Not Detected PARAINFLUENZA 4 Not Detected RHINOVIRUS Not Detected RSV A Not Detected RSV B Not Detected Normal [facility] Comment on above: Performed By: #### M 100.638 #### [facility] Laboratory [address], [place], [id number] [employer] SCIENCES DEPARTMENT CHAIR abOrdered By: Paras saldaña on 10-23-2024 SOCIAL SCIENCES DEPARTMENT CHAIR Antibody [facility] Comment on above: Test not performed Rheumatoid Factoron 10-23-19 RHEUMATOID FAC < 10.0 Normal <15 [facility] Comment on above: Performed By: #### L 4600.0100, L3100.5450, L505.7010, L3300.1200 #### [facility] Laboratory [address], [place], [id number] Rheumatoid factor measuremen tOrdered By: Paras Renee on 10-23-2024 Rheumatoid Factor < 10.0 IU/mL <15 [facility] SCL-70 extractable nuclear A b Qn (S)Ordered By: Paras Renee on 10-23-2024 Scl-70 (Scleroderma) Antibody [facility] Comment on above: Test not performed SS-A IgG antibody assayOrder ed By: Paras Renee on 10-23-2024 SS-A/Ro IgG Antibody [facility] Comment on above: Test not performed SS-B IgG antibody assayOrder ed By: Paras Renee on 10-23-2024 SS-B/La IgG Antibody [facility] Comment on above: Test not performed Serum anion gap measurementO rdered By: Pk Escobar on 10-23-2024 Anion gap [Moles/Vol] 4 mmol/L Low 5-15 [facility] Serum globulin measurementOr dered By: Pk Escobar on 10-23-2024 Globulin (S) [Mass/Vol] 3.8 g/dL 2.2-4.2 [facility] Serum or plasma alanine weaver otransferase (ALT) measurementOrdered By: Pk Escobar on 10-23-2024 ALT [Catalytic activity/Vol] 14 U/L Low 16-61 [facility] Serum or plasma albumin yara urement (mass/volume)Ordered By: Pk Escobar on 10-23-2024 Albumin [Mass/Vol] 2.5 g/dL Low 3.2-5.0 [facility] Serum or plasma alkaline asim sphatase measurementOrdered By: Pk Escobar on 10-23-2024 ALP [Catalytic activity/Vol] 52 U/L 45-117 [facility] Serum or plasma calcium yara urement (mass/volume)Ordered By: Pk Escobar on 10-23-2024 Calcium [Mass/Vol] 8.6 mg/dL 8.5-10.1 [facility] Serum or plasma creatinine m easurement (mass/volume)Ordered By: Pk Escobar on 10-23-2024 Creatinine [Mass/Vol] 0.83 mg/dL 0.70-1.30 [facility] Comment on above: The validity of the calculated GFR & GFRAA in patients over 70 years has not been determined. Clinical correlation is essential. Serum or plasma urea nitroge n measurement (mass/volume)Ordered By: Pk Escobar on 10-23-2024 Urea nitrogen [Mass/Vol] 12 mg/dL 7-18 [facility] Vera antibody assayOrdered By: Paras Renee on 10-23-2024 SM Antibody TNP [facility] Comment on above: Test not performed Sodium levelOrdered By: Jaquan Escobar on 10-23-2024 Sodium [Moles/Vol] 138 mmol/L 136-145 [facility] Total proteinOrdered By: Ramin Escobar on 10-23-2024 Protein [Mass/Vol] 6.3 g/dL Low 6.4-8.2 [facility] White blood cell (WBC) count Ordered By: Pk Escobar on 10-23-2024 WBC (Bld) [#/Vol] 9.5 10*3/uL 4.4-11.0 [facility] 12 Lead EKGon 10-22-2024 12 Lead EKG [facility] Cardiovascular Services [address] [place] [address] 12 Lead EKG 10/22/24 1652 MR#: [id number] Acct: [id number] Name: LAURENANGELA Rep #: [id number] : 1950 74 From: Pedro Luis Weber MD Attending Dr: Dr. Scarlett Morse DO Status: D IS IN Ordering Dr: Jani Britt DO Date: 10/22/24 Location: [facility] Sex: M C Admitted: 10/22/24 Test Reason : Blood Pressure : */* mmHG Vent. Rate : 102 BPM Atrial Rate : 102 BPM P-R Int : 122 ms QRS Dur : 94 ms QT Int : 332 ms P-R-T Axes : 78 79 78 degrees QTcB Int : 432 ms Sinus tachycardia Otherwise normal ECG Confirmed by CANDIDO MCCARTHY, HERNESTO ([id number]), news copy editor ROB WHITE ([id number]) on 10/26/2024 8:09:49 AM Referred By: Jani Britt Confirmed By: HERNESTO WEBER MD 10/26/24 0809 Date Pedro Luis Weber MD CC: Dr. Jani Britt DO; Dr. Scarlett Morse DO; Dr. Yoel Do DO Signed Normal [facility] Arterial patency Wrist arter y --pre arterial punctureOrdered By: Pk Escobar on 10-22-2024 Yusuf Test Positive [facility] BNP (brain natriuretic pepti de measurement)Ordered By: Jani Britt on 10-22-2024 Natriuretic peptide B (Bld) [Mass/Vol] 63.0 pg/mL 0-100 [facility] BNP,B-Type NATRIURETIC PEPTI Ember 10-22-2024 Natriuretic peptide B (Bld) [Mass/Vol] 63.0 pg/mL Normal 0-100 [facility] Comment on above: Performed By: #### L 501.9520 #### [facility] Laboratory [address] [place], [address] Base excess Calc (BldV) [Mol es/Vol]Ordered By: Pk Escobar on 10-22-2024 Blood Gas Base Excess 4 mmol/L High -2-2 [facility] Basic Metabolic Profile (BMP )on 10-22-2024 BUN/CRE 12.7 RATIO Normal 10-20 [facility] Comment on above: Order Comment: 'TROP ' Serial specimen #1, #2 or #3: 1 Performed By: #### L 830.2965 #### [facility] Laboratory [address] [place], [address] CA,Total 9.2 mg/dL Normal 8.5-10.1 [facility] Comment on above: Order Comment: 'TROP ' Serial specimen #1, #2 or #3: 1 Performed By: #### L 023.4364 #### [facility] Laboratory [address] [place], [address] Chloride [Moles/Vol] 102 mmol/L Normal 98-107 [facility] Comment on above: Order Comment: 'TROP ' Serial specimen #1, #2 or #3: 1 Performed By: #### L 003.1840 #### [facility] Laboratory [address] [place], [address] CO2 [Moles/Vol] 29.0 mmol/L Normal 21.0-32.0 [facility] Comment on above: Order Comment: 'TROP ' Serial specimen #1, #2 or #3: 1 Performed By: #### L 012.6283 #### [facility] Laboratory [address] [place], [address] Creatinine [Mass/Vol] 1.02 mg/dL Normal 0.70-1.30 [facility] Comment on above: Order Comment: 'TROP ' Serial specimen #1, #2 or #3: 1 Result Comment: The validity of the calculated GFR GFRAA in patients over 70 years has not been determined. Clinical correlation is essential. Performed By: #### L 003.6997 #### [facility] Laboratory [address] [place], [address] ECRCL 47.67 ml/min Normal [facility] Comment on above: Order Comment: 'TROP ' Serial specimen #1, #2 or #3: 1 Performed By: #### L 082.9520 #### [facility] Laboratory [address] [place], [address] EST GFR - AA 91 mL/min Normal >60 [facility] Comment on above: Order Comment: 'TROP ' Serial specimen #1, #2 or #3: 1 Result Comment: Afri can Turkish GFR Calc Performed By: #### L 713.9520 #### [facility] Laboratory [address] [place], [address] GAP 6 Normal 5-15 [facility] Comment on above: Order Comment: 'TROP ' Serial specimen #1, #2 or #3: 1 Performed By: #### L [id number] #### [facility] Laboratory [address] [place], [address] GFR/1.73 sq M.predicted among non-blacks MDRD (S/P/Bld) [Vol rate/Area] 75 mL/min/{1.73_m2} Normal >60 [facility] Comment on above: Order Comment: 'TROP ' Serial specimen #1, #2 or #3: 1 Result Comment: Non- GFR Calc Performed By: #### L 501.9520 #### [facility] Laboratory [address] [place], [address] Glucose [Mass/Vol] 86 mg/dL Normal 74-106 [facility] Comment on above: Order Comment: 'TROP ' Serial specimen #1, #2 or #3: 1 Performed By: #### L 501.9520 #### [facility] Laboratory [address] [place], [address] Potassium [Moles/Vol] 4.0 mmol/L Normal 3.5-5.1 [facility] Comment on above: Order Comment: 'TROP ' Serial specimen #1, #2 or #3: 1 Performed By: #### L 421.9524 #### [facility] Laboratory [address] [place], [address] Sodium [Moles/Vol] 136 mmol/L Normal 136-145 [facility] Comment on above: Order Comment: 'TROP ' Serial specimen #1, #2 or #3: 1 Performed By: #### L 501.9520 #### [facility] Laboratory [address] [place], [address] Urea nitrogen [Mass/Vol] 13 mg/dL Normal 7-18 [facility] Comment on above: Order Comment: 'TROP ' Serial specimen #1, #2 or #3: 1 Performed By: #### L 501.9520 #### [facility] Laboratory [address] [place], [address] Bilirubin Test strip Ql (U)O rdered By: Pk Escobar on 10-22-2024 Bilirubin Ql (U) Negative Negative [facility] Positive Normal [facility] Comment on above: Performed By: #### L 501.9520 #### [facility] Laboratory [address] [place], [address] Base excess Calc (Bld) [Moles/Vol] 4 mmol/L High -2 to +2 [facility] Comment on above: Performed By: #### L 501.9520 #### [facility] Laboratory [address] [place], [address] Blood Gas Type ART Normal [facility] Comment on above: Performed By: #### L 501.9520 #### [facility] Laboratory [address] [place], [address] CO2 [Moles/Vol] 30 mmol/L Normal [facility] Comment on above: Performed By: #### L 501.9520 #### [facility] Laboratory [address] [place], [address] FI02 21.0 Normal [facility] Comment on above: Performed By: #### L 501.9520 #### [facility] Laboratory [address] [place], [address] HCO3 (Bld) [Moles/Vol] 28.3 mmol/L High 22-26 [facility] Comment on above: Performed By: #### L 501.9520 #### [facility] Laboratory [address] [place], [address] Mode Not entered [facility] Comment on above: Performed By: #### L 501.9520 #### [facility] Laboratory [address] [place], [address] O2 Delivery Dev Room Air [facility] Comment on above: Performed By: #### L [id number] #### [facility] Laboratory [address] [place], [address] pCO2 44.7 mmHg Normal 35-45 [facility] Comment on above: Performed By: #### L 501.9520 #### [facility] Laboratory [address] [place], [address] pH (Bld) 7.41 [pH] Normal 7.35-7.45 [facility] Comment on above: Performed By: #### L 501.9520 #### [facility] Laboratory [address] [place], [address] PO2 71 mmHG Low 75-100 [facility] Comment on above: Performed By: #### L 501.9520 #### [facility] Laboratory [address] [place], [address] SITE R Brach Normal [facility] Comment on above: Performed By: #### L 501.9520 #### [facility] Laboratory [address] [place], [address] SO2 94 Low 95-99 [facility] Comment on above: Performed By: #### L [address] #### [facility] Laboratory [address] [place], [address] Blood bicarbonate measuremen tOrdered By: Pk Escobar on 10-22-2024 Blood Gas Bicarbonate Actual 28.3 mmol/L High 22-26 [facility] Blood cultureOrdered By: Gaurav Britt on 10-22-2024 Bacteria identified Cx Nom (Bld) No growth in 5 days. [facility] CBC W/Diff, Automatedon - Absolute Lymph 1.25 X10 3/uL Normal 0.83-4.51 [facility] Comment on above: Performed By: #### L 501.9520 #### [facility] Laboratory [address] [place], [address] Absolute Neut 10.0 X10 3/uL High 2.0-7.7 [facility] Comment on above: Performed By: #### L 501.9520 #### [facility] Laboratory [address] [place], [address] Basophils/100 WBC (Bld) 0.4 % Normal 0-1 [facility] Comment on above: Performed By: #### L 501.9520 #### [facility] Laboratory [address] [place], [address] Eosinophils/100 WBC (Bld) 0.6 % Normal 0-5 [facility] Comment on above: Performed By: #### L 501.9520 #### [facility] Laboratory [address] [place], [address] Erythrocyte distribution width (RBC) [Ratio] 13.3 % Normal 11.6-14.6 [facility] Comment on above: Performed By: #### L 831.9520 #### [facility] Laboratory [address] [place], [address] Hematocrit (Bld) [Volume fraction] 37.1 % Low 40-54 [facility] Comment on above: Performed By: #### L 119.9520 #### [facility] Laboratory [address] [place], [address] Hemoglobin (Bld) [Mass/Vol] 12.2 g/dL Low 13.0-16.5 [facility] Comment on above: Performed By: #### L 541.9816 #### [facility] Laboratory [address] [place], [address] IG% 0.400 Normal 0.0-0.9 [facility] Comment on above: Result Comment: IG% - Immature Granulocytes (promyelocytes, myelocytes and metamyelocytes) > 1% indicates that a LEFT SHIFT is Present. Performed By: #### L 388.2747 #### [facility] Laboratory [address] [place], [address] Lymphocytes/100 WBC (Bld) 10.0 % Low 19-41 [facility] Comment on above: Performed By: #### L 921.9519 #### [facility] Laboratory [address] [place], [address] MCH (RBC) [Entitic mass] 30.9 pg Normal 27.0-32.0 [facility] Comment on above: Performed By: #### L 272.9528 #### [facility] Laboratory [address] [place], [address] MCHC (RBC) [Mass/Vol] 32.9 g/dL Normal 32-36 [facility] Comment on above: Performed By: #### L 530.9520 #### [facility] Laboratory [address] [place], [address] MCV (RBC) [Entitic vol] 93.9 fL Normal 80-94 [facility] Comment on above: Performed By: #### L 869.6922 #### [facility] Laboratory [address] [place], [address] Monocytes/100 WBC (Bld) 8.1 % Normal 0-10 [facility] Comment on above: Performed By: #### L 869.6702 #### [facility] Laboratory [address] [place], [address] Neutrophils/100 WBC (Bld) 80.5 % High 47-70 [facility] Comment on above: Performed By: #### L 501.9520 #### [facility] Laboratory [address] [place], [address] Nucleated RBC (Bld) [#/Vol] 0 10*3/uL Normal 0-5 [facility] Comment on above: Performed By: #### L 501.9520 #### [facility] Laboratory [address] [place], [address] Platelet mean volume (Bld) [Entitic vol] 9.2 fL Normal 6.2-12.0 [facility] Comment on above: Performed By: #### L 501.9520 #### [facility] Laboratory [address] [place], [address] Platelets (Bld) [#/Vol] 215 10*3/uL Normal 150-450 [facility] Comment on above: Performed By: #### L 501.9520 #### [facility] Laboratory [address] [place], [address] RBC (Bld) [#/Vol] 3.95 10*6/uL Low 4.6-6.2 [facility] Comment on above: Performed By: #### L 501.9520 #### [facility] Laboratory [address] [place], [address] RDW SD 45.9 fl High 35.1-43.9 [facility] Comment on above: Performed By: #### L 501.9520 #### [facility] Laboratory [address] [place], [address] WBC (Bld) [#/Vol] 12.5 10*3/uL High 4.4-11.0 [facility] Comment on above: Performed By: #### L 501.9520 #### [facility] Laboratory [address] [place], [place], [address] CTA Chest W/WO Contraston CTA Chest W/WO Contrast [facility] Imaging Services [address] [place] [address] CTA Chest W/WO Contrast MR#: [id number] Acct: [id number] Name: ANGELA AGUILAR Rep #: [id number] : 1950 M 74 From: Zaina Weston nd, MD PCP: Dr. Yoel Do, DO Status: REG ER Study: CTA Chest W/WO Contrast Date of Exam: 10/22/24 Exam# [id number] Ordering Dr: Jani Britt DO PROCEDURE: CTA CHEST W/WO CONTRAST REASON FOR EXAM: 74-year-old male, shortness of breath and weakness. TECHNIQUE: CTA imaging of the chest with intravenous contrast. 3D reconstructions. CONTRAST: Administered. COMPARISON: Same day chest radiograph. FINDINGS: Hardware: None. Lymph nodes: No mediastinal hilar or axillary lymphadenopathy. Calcified left hilar granulomas. Heart: Normal heart size. No pericardial effusion. Moderate coronary artery calcifications. RV/LV Diameter Ratio: N/A Thoracic Aorta: No thoracic aortic aneurysm or dissection. Moderate calcific plaque of the thoracic aorta. Pulmonary Vessels: No evidence of acute pulmonary emboli through the major subsegmental branches. Most Proximal Level of Embolus (if embolus present): N/A Lungs and Airways: Central airways are patent. Moderate paraseptal and centrilobular emphysema with scattered areas of scarring. Mild bilateral bronchiectasis. Small lobular pulmonary nodule within the left upper lobe measuring 1.2 cm (series 2, image 114). Patchy ground-glass opacities within the bilateral dependent lower lobes, jddui-atvxomx-upbs-left, with associated bronchiectasis and honeycombing. Pleura: No pleural effusion. No pneumothorax. Upper Abdomen: Calcific plaque of the upper abdominal aorta. Bones: Diffuse osseous demineralization with severe chronic appearing vertebral body compression fracture deformities throughout the thoracic spine. Moderate kyphosis. Left lateral rib fracture deformities. CT/CTA Chest W/WO Contrast IMPRESSION: 1. No evidence of acute pulmonary emboli. 2. Bilateral ground-glass opacities with bronchiectasis and honeycombing, most compatible with interstitial pulmonary fibrosis such as combined pulmonary fibrosis and emphysema or NSIP. Additional considerations include atypical pneumonia. Clinical and laboratory correlation recommended. 3. Moderate emphysema. 4. Small lobular left upper lobe pulmonary nodule. Correlation with prior CT chest imaging is recommended if available. If no imaging available, recommend follow-up CT chest in 6-12 months is recommended. 5. Moderate coronary artery calcifications. One or more dose reduction techniques were used (e.g., Automated exposure control, adjustment of the mA and/or kV according to patient size, use of iterative reconstruction technique). Reading [facility] CC: Dr. Jani Britt DO; Dr. Yoel Do DO Bus System Operator: Signed Normal [facility] Chest 1 View (Portable)on Chest 1 View (Portable) [facility] Imaging Services [address] [place] [id number] Chest 1 View (Portable) MR#: [id number] Acct: [id number] Name: ANGELA AGUILAR Rep #: [id number] : 1950 M 74 From: Zaina Weston nd, MD PCP: Dr. Yoel Do DO Status: REG ER Study: Chest 1 View (Portable) Date of Exam: 10/22/24 Exam# [id number] Ordering Dr: Jani Britt DO PROCEDURE: CHEST 1 VIEW (PORTABLE) REASON FOR EXAM: 74-year-old male, shortness of breath and weakness for 1 day. TECHNIQUE: Frontal view of the chest. COMPARISON: Chest radiographs 08/13/2022. FINDINGS: The heart size is normal. Calcification of the thoracic aorta. Stable findings of emphysema and COPD. Mild ill-defined patchy airspace opacification within the right lower lung zone. No pleural effusion or pneumothorax. Degenerative changes are identified within the thoracic spine. RAD/Chest 1 View (Portable) IMPRESSION: 1. Ill-defined patchy airspace opacification within the right lower lung zone, which is nonspecific but may be seen in infectious/inflammatory pneumonia. 2. COPD. Reading Location: [facility] CC: Dr. Jani Britt DO; Dr. Yoel Do DO Bus System Operator: Signed Normal [facility] Determination of fraction of inspired oxygenOrdered By: Pk Escobar on 10-22-2024 Blood Gas Oxygen Percent 21.0 [facility] Emergency Department Summary on 10-22-2024 Emergency Department Summary [facility] Medical Records Department [address] [place] [address] Emergency Department Summary 10/22/24 MR#: [id number] Acct: [id number] Name: ANGELA AGUILAR Rep #: [id number] : 1950 74 From: Jani Britt DO PCP: Dr. Yoel oD DO Status:ADM IN Location: [place] [address] HPI History of Present Illness Chief Complaint: Shortness of Breath Informant: patient and spouse/S.O. Narrative Narrative: 74-year-old [facility] male presenting to the emergency room with difficulty breathing. Patient states that he has a history of COPD and is a former smoker. 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 Yesterday and more so today he notes shortness of breath. It is he states it took him 30 minutes to get his shirt on this morning. He denies any significant change in cough. He notes some lower lateral discomfort just underneath his rib cage that has resolved. He notes that his ankles have seemed more swollen since he was on some prednisone and later transition to meloxicam. states it looks like his face is more swollen today. He denies fever rhinorrhea headache diarrhea. He notes difficulty with urination. [facility] Medical History Perennial non-allergic rhinitis Stage 3 severe chronic obstructive pulmonary disease by Global Initiative for Chronic Obstructive Lung Disease classification Chronic obstructive asthma (with obstructive pulmonary disease) Allergic rhinitis due to allergen Left wrist Home Medications ???Medication ???Instructions ???Recorded ???Last Taken ???Type mirtazapine 15 mg tablet 15 mg PO QHS 08/13/22 10/21/24 His tory ipratropium bromide 21 mcg (0.03 2 spray intranasal BID-TID PRN Unknown Rx %) nasal spray allergy symptoms #30 mL potassium chloride 10 mEq 10 meq PO DAILY #30 tabs 11/20/22 Unknown Rx tablet,extended release albuterol sulfate 90 mcg/actuation 2 inh inhalation Q6H PRN shortne ss 09/24/23 Unknown Rx aerosol inhaler of breath or wheezing #8.5 grams budesonide 160 mcg-glycopyr 9 2 inh inhalation BID #10.7 grams 1 10/25/23 Unknown Rx mcg-formot 4.8 mcg/actuation HFA inhaler (Breztri Aerosphere) alprazolam 1 mg tablet 0.5 mg PO QHS 10/22/24 10/21/24 Hi story meloxicam 15 mg tablet 15 mg PO DAILY 10/22/24 10/22/24 H istory venlafaxine 75 mg capsule,extended 75 mg PO DAILY 10/22/24 10/22/24 History release 24 hr Allergy/AdvReac Type Severity Reaction Status Date / Time Sulfa (Sulfonamide Allergy Unknown Verified 10/22/24 15:54 Antibiotics) Family History Mother Heart disease Surgical History Right arm and ankle Left elbow ORIF Social History Smoking Status: Former smoker ROS ROS ED Constitutional Constitutional ED: Denies chills, fever(s) or weight loss Eyes Eyes: Denies change in vision or diplopia ENT ENT ED: Denies ear pain, rhinorrhea or sore throat Cardiovascular Cardiovascular: Denies chest pain, orthopnea, palpitations or racing heartbeat Respiratory/Chest Respiratory/Chest: Reports dyspnea and dyspnea on exertion; Denies cough or orthopnea Gastrointestinal Gastrointestinal: Denies abdominal pain, diarrhea, nausea or vomiting Genitourinary Genitourinary ED: Denies dysuria, hematuria or urinary frequency Musculoskeletal Musculoskeletal: Denies arthralgias or myalgias Integumentary Denies abscess or rash Neurologic Neurologic: Denies headache(s) or weakness Psychiatric Psychiatric: Denies anxiety, depression, suicidal ideation or suicidal thoughts Endocrine Endocrinology: Denies polydipsia, polyphagia or polyuria Allergic/Immunologic Allergic/Immunologic ED: Denies mouth swelling, tongue swelling or urticaria EXAM Physical Exam Const Vital Signs: 10/22/24 15:54 10/22/24 15:54 10/22/24 16:48 Temperature 99.4 F H Temperature Source Oral Pulse Rate 110 H 101 H Respiratory Rate 26 H 20 H Respiratory Effort Normal Non-Labored Respiratory Depth Normal Respiratory Pattern Normal Normal Blood Pressure 152/81 H Blood Pressure Mean 104 Pulse Ox 90 Oxygen Delivery Method Room Air Room Air 10/22/24 17:54 10/22/24 19:00 10/22/24 19:42 Temperature 99.2 F H Temperature Source Pulse Rate 100 100 101 H Respiratory Rate 16 25 H 25 H Respiratory Effort Respiratory Depth Respiratory Pattern Blood Pressure 111/77 126/72 H 126/72 H Blood Pressure Mean 88 90 90 Pulse Ox 95 94 92 Oxygen Delivery Method Room Air Positive wel (more content not included)... Normal [facility] Epithelial cells.squamous LM Ql (Urine sed)Ordered By: Pk Escobar on 10-22-2024 Epithelial cells.squamous LM.HPF (Urine sed) [#/Area] 0 /[HPF] 0-5 [facility] Glucose Ql (U)Ordered By: Damion Escobar on 10-22-2024 Urine Glucose (UA) Normal mg/dl Normal [facility] H AND P Exam - [facility] 10-22-2024 H&P Exam - Hospitalist [facility] Medical Records Department [address] [place] [address] H P Exam - Hospitalist 10/22/241943 MR#: [id number] Acct: [id number] Name: ANGELA AGUILAR Rep #: [id number] : 1950 74 From: Pk Lowery DO PCP: Dr. Yoel Do, DO Status:ADM IN [id number] - General General Date of Admission: 10/22/24 Date of Service: 10/22/24 Chief Complaint: SOB and Wheezing. 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 HS, listed allergy to sulfa antibiotics (?), history of closed olecranon fracture; s/p ORIF (2017) and OA who presents to [facility] ER complaining of shortness of breath. Mr. 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 When he woke up this morning he took an 30 minutes to get his shirt on due to severe fatigue and soreness in his lower ribs that has since resolved. He admits to ankle and face swelling after recent prednisone with transition later to meloxicam. He also admits to difficulty with urination but he denies fever, chills, nausea, vomiting, diarrhea, constipation, abdominal pain, headache or focal neurologic deficits. In the ER he was noted to have CTA of the chest that revealed no evidence of pulmonary emboli but did show bilateral ground-glass opacities with bronchiectasis and honeycombing, most compatible with Interstitial Pulmonary Fibrosis such as combined pulmonary fibrosis and emphysema or NSIP with additional considerations to include Atypical Pneumonia with moderate emphysema and small lobular Left upper lobe pulmonary nodule with follow-up CT recommended in addition to moderate coronary artery calcifications with corresponding Leukocytosis of 12.5 K present on admission and low-grade fever of 99.2 ???F complicated by tachypnea of 25 breaths/min indicating clinical evidence of Respiratory Insufficiency due to AE COPD and he was then admitted to the PCU for ongoing care for a stay that is expected to extend beyond 2 midnights. [facility] Medical History Perennial non-allergic rhinitis Stage 3 severe chronic obstructive pulmonary disease by Global Initiative for Chronic Obstructive Lung Disease classification Chronic obstructive asthma (with obstructive pulmonary disease) Allergic rhinitis due to allergen Left wrist Home Medications ???Medication ???Instructions ???Recorded ???Last Taken ???Type mirtazapine 15 mg tablet 15 mg PO QHS 08/13/22 10/21/24 His tory ipratropium bromide 21 mcg (0.03 2 spray intranasal BID-TID PRN Unknown Rx %) nasal spray allergy symptoms #30 mL potassium chloride 10 mEq 10 meq PO DAILY #30 tabs 11/20/22 Unknown Rx tablet,extended release albuterol sulfate 90 mcg/actuation 2 inh inhalation Q6H PRN shortne ss 09/24/23 Unknown Rx aerosol inhaler of breath or wheezing #8.5 grams budesonide 160 mcg-glycopyr 9 2 inh inhalation BID #10.7 grams 1 10/25/23 Unknown Rx mcg-formot 4.8 mcg/actuation HFA inhaler (Breztri Aerosphere) alprazolam 1 mg tablet 0.5 mg PO QHS 10/22/24 10/21/24 Hi story meloxicam 15 mg tablet 15 mg PO DAILY 10/22/24 10/22/24 H istory venlafaxine 75 mg capsule,extended 75 mg PO DAILY 10/22/24 10/22/24 History release 24 hr Allergy/AdvReac Type Severity Reaction Status Date / Time Sulfa (Sulfonamide Allergy Unknown Verified 10/22/24 15:54 Antibiotics) Family History Mother Heart disease Surgical History Right arm and ankle Left elbow ORIF Social History Smoking Status: Former smoker ROS ROS Narrative Review of Systems: Constitutional: Patient denies fever or chills. Eyes: Patient denies change in vision or discharge from eyes. ENT: Patient denies rhinorrhea, sore throat or ear pain. Resp: Patient admits to dyspnea on exertion that progressed to shortness of breath at rest with wheezing. CV: Patient denies chest pain, palpitations, heart racing or lower extremity edema. GI: Patient denies abdomina (more content not included)... Normal [facility] Ketones Test strip Ql (U)Ord ered By: Pk Escobar on 10-22-2024 Ketones Ql (U) 5 mg/dl High Negative [facility] L. pneumophila Ag Ql (U)Orde red By: Pk Escobar on 10-22-2024 Legionella [facility]igen [facility] L501.4020[facility] 10-22-2024 TROPONIN-I HS 7 pg/mL Normal 3.0-78.0 [facility] Comment on above: Order Comment: 'TROP ' Serial specimen #1, #2 or #3: 1 Result Comment: Plea se Note: New Test Units and Gender Specific Reference Ranges. For more information see Policy Stat Procedure [place] High Sensitivity Troponin (TNIH) and attachments. Performed By: #### L 501.9520 #### [facility] [address] [place], [place], [address] Legionella Antigen Urineon 0 10-22-2024 LEGU URINE, CLEAN CATCH Legionella Antigen result interpretation: L pneumo Ag Ur Ql Negative Presumptive negative for Legionella pneumophila serogroup 1 antigen in urine, suggesting no recent or current infection. Legionella Ag, Urine Negative (See interpretation below) Normal [facility] Comment on above: Performed By: #### L 500.2500, L501.4021, L100.0100 #### [facility] [address] [place], [address] Microscopic analysis of urin e for red blood cells (RBC)Ordered By: Pk Escobar on 10-22-2024 Urine RBC 5-10 SEEN /hpf 0-5 [facility] Mucus LM Ql (Urine sed)Order ed By: Pk Escobar on 10-22-2024 Mucus Ql (Urine sed) 0 SEEN /hpf [facility] No Panel InformationOrdered By: Pk Escobar on 10-22-2024 Blood Gas Sample Site R Brach [facility] Blood Gas Specimen Type ART [facility] Blood Gas Vent Mode Not entered [facility] Oxygen Delivery Device Room Air [facility] Oxygen saturation measuremen tOrdered By: Pk Escobar on 10-22-2024 Blood Gas Oxygen Saturation 94 % Low 95-99 [facility] PSA,Total - Annual Screenon 10-22-2024 PSA,TOT SCREEN 2.44 ng/mL Normal 0.00-4.00 [facility] Comment on above: Result Comment: This test was performed using the TPSA assay method for the [employer] chemistry system. Values obtained with different assay methods cannot be used interchangably. When changing PSA assays in the course of monitoring a patient, additional sequential testing should be carried out to confirm baseline values. Performed By: #### L 500.2500, L501.4021, L100.0100 #### [facility] [address] [place], [place], [address] Partial pressure of carbon d ioxide measurementOrdered By: Pk Escobar on 10-22-2024 Arterial Blood Partial Pressure CO2 44.7 mmHg 35-45 [facility] Partial pressure of oxygen m easurementOrdered By: Pk Escobar on 10-22-2024 Arterial Blood Partial Pressure O2 71 mmHG Low 75-100 [facility] Protein Test strip Ql (U)Ord ered By: Pk Escobar on 10-22-2024 Protein Ql (U) 15 mg/dl High Negative [facility] Respiratory pathogens DNA an d RNA panel SPRING+probe (Resp)Ordered By: Pk Escobar on 10-22-2024 Respiratory Panel (PCR) [facility] Screening prostate specific antigen (PSA) measurementOrdered By: Pk Escobar on 10-22-2024 Prostate Specific Antigen Screen 2.44 ng/mL 0.00-4.00 [facility] Comment on above: This test was perfor med using the TPSA assay method for the[employer] chemistry system. Values obtained with differentassay methods cannot be used interchangably.When changing PSA assays in the course of monitoring apatient, additional sequential testing should be carriedout to confirm baseline values. Strep pneumoniae Antig(UR,CS F)on 10-22-2024 STPAG Strep pneumoniae Antig(UR,CSF) [] Negative Urine Presumptive negative for pneumococcal pneumonia, suggesting no current or recent pneumococcal infection. Infection due to S pneumoniae cannot be ruled out since the antigen present in the sample may be below the detection limit of the test. Strep pneumo Test Negative URINE (See interpretation below) Normal [facility] Comment on above: Performed By: #### L 500.2500, L501.4021, L100.0100 #### [facility] [address] [place], [address] Streptococcus pneumoniae ant igen assayOrdered By: Pk Escobar on 10-22-2024 Streptococcus pneumoniae Antigen (M [facility] TSH QnOrdered By: Pk chandra on 10-22-2024 Thyroid Stimulating Hormone (TSH) 0.845 uIU/mL 0.358-3.74 0 [facility] Thyroid Stim Hormone (TSH)on 10-22-2024 TSH 0.845 uIU/mL Normal 0.358-3.74 0 [facility] Comment on above: Performed By: #### L 501.9520 #### [facility] [address] [place], [address] Total carbon dioxide measure mentOrdered By: Pk Escobar on 10-22-2024 Blood Gas Total CO2 30 mmol/L [facility] Troponin IOrdered By: Jani Britt on 10-22-2024 Troponin I High Sensitivity 7 pg/mL 3.0-78.0 [facility] Comment on above: Please Note: New Renee t Units and Gender Specific Reference Ranges. For more information see Policy Stat Procedure [place] High Sensitivity Troponin (TNIH) and attachments. Urinalysis, Completeon 10-22 RBC 5-10 SEEN Normal 0-5 [facility] Comment on above: Order Comment: CLEAN CATCH Performed By: #### L 501.9520 #### [facility] [address] [place], [address] BILIRUBIN URINE Negative Normal Negative [facility] Comment on above: Order Comment: CLEAN CATCH Performed By: #### L 501.9520 #### [facility] [address] [place], [address] GLUCOSE, UR Normal Normal Normal [facility] Comment on above: Order Comment: CLEAN CATCH Performed By: #### L 172.4020 #### [facility] [address] [place], [address] KETONE UR 5 mg/dl Abnormal Negative [facility] Comment on above: Order Comment: CLEAN CATCH Performed By: #### L 501.9520 #### [facility] [address] [place], [address] LEUK ESTERASE Negative Normal Negative [facility] Comment on above: Order Comment: CLEAN CATCH Performed By: #### L 501.9520 #### [facility] [address] [place], [address] OCCULT BLOOD-UR 25 /ul Abnormal Negative [facility] Comment on above: Order Comment: CLEAN CATCH Performed By: #### L 501.9520 #### [facility] [address] [place], [address] pH UR 7.0 Normal 5.0 - 8.0 [facility] Comment on above: Order Comment: CLEAN CATCH Performed By: #### L [id number] #### [facility] [address] [place], [address] PROT DIPSTX 15 mg/dl Abnormal Negative [facility] Comment on above: Order Comment: CLEAN CATCH Performed By: #### L [id number] #### [facility] [address] [place], [address] SP.GR. DIPSTX 1.005 Normal 1.002-1.03 0 [facility] Comment on above: Order Comment: CLEAN CATCH Performed By: #### L [id number] #### [facility] [address] [place], [address] UROBILI Normal Normal Normal [facility] Comment on above: Order Comment: CLEAN CATCH Performed By: #### L [id number] #### [facility] [address] [place], [address] BACTERIA 0 SEEN Normal None Seen [facility] Comment on above: Order Comment: CLEAN CATCH Performed By: #### L [id number] #### [facility] [address] [place], [address] EPI,SQUAMOUS 0 SEEN Normal 0-5 [facility] Comment on above: Order Comment: CLEAN CATCH Performed By: #### L [id number] #### [facility] [address] [place], [address] Mucus Ql (Urine sed) 0 SEEN Normal [facility] Comment on above: Order Comment: CLEAN CATCH Performed By: #### L [id number] #### [facility] [address] [place], [address] WBC 0 SEEN Normal 0-5 [facility] Comment on above: Order Comment: CLEAN CATCH Performed By: #### L [id number] #### [facility] [address] [place], [address] Urine blood detectionOrdered By: Pk Escobar on 10-22-2024 Urine Occult Blood 25 /ul High Negative [facility] Urine clarityOrdered By: Ramin Escobar on 10-22-2024 Clarity (U) Clear Normal Clear [facility] Comment on above: Order Comment: CLEAN CATCH Performed By: #### L [id number] #### [facility] [address] [place], [address] Urine color determinationOrd ered By: Pk Escobar on 10-22-2024 Color (U) Yellow Normal Yellow [facility] Comment on above: Order Comment: CLEAN CATCH Performed By: #### L [id number] #### [facility] [address] [place], [address] Urine leukocyte esterase det ection by dipstickOrdered By: Pk Escobar on 10-22-2024 Leukocyte esterase Test strip Ql (U) Negative Negative [facility] Urine nitrite test by dipsti ckOrdered By: Pk Escobar on 10-22-2024 Nitrite Ql (U) Negative Normal Negative [facility] Comment on above: Order Comment: CLEAN CATCH Performed By: #### L [id number] #### [facility] [address] [place], [place], [id number] Urine pHOrdered By: Pk joshua on 10-22-2024 pH (U) 7.0 [pH] 5.0 - 8.0 [facility] Urine sediment bacteria coun t by microscopy (number/high power field)Ordered By: Pk Escobar on 10-22-2024 Bacteria LM.HPF (Urine sed) [#/Area] 0 /[HPF] None Seen [facility] Urine specific gravity measu rementOrdered By: Pk Escobar on 10-22-2024 Specific gravity (U) [Rel density] 1.005 1.002-1.03 0 [facility] Urobilinogen Ql (U)Ordered B y: Pk Escobar on 10-22-2024 Urine Urobilinogen Normal mg/dl Normal [facility] White blood cell countOrdere d By: Pk Escobar on 10-22-2024 Urine WBC 0 SEEN /hpf 0-5 [facility] pH (Unsp spec)Ordered By: Damion Escobar on 10-22-2024 Blood Gas pH 7.41 7.35-7.45 [facility] Absolute lymphocyte countOrd ered By: Dr. Romo on 09-19-2022 Lymphocytes Auto (Unsp spec) [#/Vol] 1.93 10*3/uL 0.83-4.51 [facility] Basophil percentageOrdered B y: Dr. Romo on 09-19-2022 Basophils/100 WBC (Bld) 0.6 % 0-1 [facility] Eosinophils/100 WBC (Bld) 9.6 % 0-5 [facility] Neutrophils (Bld) [#/Vol] 5.4 10*3/uL 2.0-7.7 [facility] Neutrophils/100 WBC (Bld) 57.7 % 47-70 [facility] WBC (Bld) [#/Vol] 9.3 10*3/uL 4.4-11.0 [facility] Blood erythrocytes count (nu mber/volume)Ordered By: Dr. Romo on 09-19-2022 RBC (Bld) [#/Vol] 4.58 10*6/uL 4.6-6.2 [facility] Blood hemoglobin measurement (mass/volume)Ordered By: Dr. Romo on 09-19-2022 Hemoglobin (Bld) [Mass/Vol] 13.8 g/dL 13.0-16.5 [facility] Blood lymphocytes/100 leukoc ytesOrdered By: Dr. Romo on 09-19-2022 Lymphocytes/100 WBC (Bld) 20.7 % 19-41 [facility] Blood monocytes/100 leukocyt esOrdered By: Dr. Romo on 09-19-2022 Monocytes/100 WBC (Bld) 11.1 % 0-10 [facility] Blood platelet mean volumeOr dered By: Dr. Romo on 09-19-2022 Platelet mean volume (Bld) [Entitic vol] 9.5 fL 6.2-12.0 [facility] Determination of erythrocyte mean corpuscular volume (MCV)Ordered By: Dr. Romo on 09-19-2022 MCV (RBC) [Entitic vol] 95.0 fL 80-94 [facility] Hematocrit Auto (Bld) [Volum e fraction]Ordered By: Dr. Romo on 09-19-2022 Hematocrit (Bld) [Volume fraction] 43.5 % 40-54 [facility] Laboratory - Hematology and Cell countsOrdered By: Dr. Romo on 09-19-2022 Erythrocyte distribution width (RBC) [Entitic vol] 48.3 fL 35.1-43.9 [facility] Erythrocyte distribution width (RBC) [Ratio] 13.8 % 11.6-14.6 [facility] Immature granulocytes/100 WBC (Bld) 0.300 % 0.0-0.9 [facility] Comment on above: IG% - Immature Granu locytes (promyelocytes, myelocytes and metamyelocytes) > 1% indicates that a LEFT SHIFT is Present. MCH (RBC) [Entitic mass] 30.1 pg 27.0-32.0 [facility] Nucleated RBC/100 WBC (Bld) [Ratio] 0 % 0-5 [facility] MCHC Auto (RBC) [Mass/Vol]Or dered By: Dr. Romo on 09-19-2022 MCHC (RBC) [Mass/Vol] 31.7 g/dL 32-36 [facility] Platelets bldOrdered By: Dr. Romo on 09-19-2022 Platelets (Bld) [#/Vol] 230 10*3/uL 150-450 [facility] Ova and parasitesOrdered By: Dr. Romo on 08-28-2022 Ova and parasites identified LM Nom (Unsp spec) [facility] Basophil percentageOrdered B y: Dr. Romo on 08-20-2022 Basophil percentage Negative Negative [facility] Comment on above: No Enteroviral RNA D etected.This test was developed and its performance characteristicsdetermined by [employer]. It has not been cleared or approvedby the Food and Drug Administration. The FDA hasdetermined that such clearance or approval is notnecessary.Performed at: [address] [id number] Director: Sonny Lopez MD, Phone: [phone] Absolute lymphocyte countOrd ered By: Dr. Romo on 08-13-2022 Lymphocytes Auto (Unsp spec) [#/Vol] 1.39 10*3/uL 0.83-4.51 [facility] Alternaria alternata IgE ser umOrdered By: Dr. Romo on 08-13-2022 A. alternata IgE Qn (S) <0.10 kU/L Class 0 [facility] Basophil percentageOrdered B y: Dr. Romo on 08-13-2022 Basophils/100 WBC (Bld) 0.3 % 0-1 [facility] Eosinophils/100 WBC (Bld) 8.9 % 0-5 [facility] Neutrophils (Bld) [#/Vol] 3.1 10*3/uL 2.0-7.7 [facility] Neutrophils/100 WBC (Bld) 53.7 % 47-70 [facility] WBC (Bld) [#/Vol] 5.8 10*3/uL 4.4-11.0 [facility] Blood erythrocytes count (nu mber/volume)Ordered By: Dr. Romo on 08-13-2022 RBC (Bld) [#/Vol] 4.22 10*6/uL 4.6-6.2 [facility] Blood hemoglobin measurement (mass/volume)Ordered By: Dr. Romo on 08-13-2022 Hemoglobin (Bld) [Mass/Vol] 13.0 g/dL 13.0-16.5 [facility] Blood lymphocytes/100 leukoc ytesOrdered By: Dr. Romo on 08-13-2022 Lymphocytes/100 WBC (Bld) 24.1 % 19-41 [facility] Blood monocytes/100 leukocyt esOrdered By: Dr. Romo on 08-13-2022 Monocytes/100 WBC (Bld) 12.7 % 0-10 [facility] Blood platelet mean volumeOr dered By: Dr. Romo on 08-13-2022 Platelet mean volume (Bld) [Entitic vol] 9.2 fL 6.2-12.0 [facility] Determination of erythrocyte mean corpuscular volume (MCV)Ordered By: Dr. Romo on 08-13-2022 MCV (RBC) [Entitic vol] 95.5 fL 80-94 [facility] Hematocrit Auto (Bld) [Volum e fraction]Ordered By: Dr. Romo on 08-13-2022 Hematocrit (Bld) [Volume fraction] 40.3 % 40-54 [facility] Laboratory - Hematology and Cell countsOrdered By: Dr. Room on 08-13-2022 Erythrocyte distribution width (RBC) [Entitic vol] 47.9 fL 35.1-43.9 [facility] Erythrocyte distribution width (RBC) [Ratio] 13.7 % 11.6-14.6 [facility] Immature granulocytes/100 WBC (Bld) 0.300 % 0.0-0.9 [facility] Comment on above: IG% - Immature Granu locytes (promyelocytes, myelocytes and metamyelocytes) > 1% indicates that a LEFT SHIFT is Present. MCH (RBC) [Entitic mass] 30.8 pg 27.0-32.0 [facility] Nucleated RBC/100 WBC (Bld) [Ratio] 0 % 0-5 [facility] Auto (RBC) [Mass/Vol]Or dered By: Dr. Romo on 08-13-2022 MCHC (RBC) [Mass/Vol] 32.3 g/dL 32-36 [facility] No Panel InformationOrdered By: Dr. Romo on 08-13-2022 Cat Hair Allergen <0.10 kU/L Class 0 [facility] Common Ragweed (Short) Allergen <0.10 kU/L Class 0 [facility] Immunoglobulin E 134 IU/mL 6-495 [facility] Maple (Cole) Allergen IgE Ab <0.10 kU/L Class 0 [facility] Mouse Urine Allergen IgE Antibody <0.10 kU/L [facility] 0 [facility] Comment on above: Performed at: [address] [id number] Director: Sonny Lopez MD, Phone: [phone] RAST Comment Comment . [facility] Comment on above: Levels of Specific I gE Class Description of Class ----- < 0.10 0 Negative 0.10 - 0.31 0/I Equivocal/Low 0.32 - 0.55 I Low 0.56 - 1.40 II Moderate 1.41 - 3.90 III High 3.91 - 19.00 IV Very High 19.01 - 100.00 V Very High >100.00 Very High Pavo Tree Allergen <0.10 kU/L Class 0 [facility] Platelets bldOrdered By: Dr. Romo on 08-13-2022 Platelets (Bld) [#/Vol] 255 10*3/uL 150-450 [facility] Rough pigweed specific IgE a ntibody assayOrdered By: Dr. Romo on 08-13-2022 Rough Pigweed IgE Qn (S) <0.10 kU/L Class 0 [facility] Serum Turkish sycamore IgE antibody assay (units/volume)Ordered By: Dr. Romo on 08-13-2022 Turkish Markesan IgE Qn (S) <0.10 kU/L Class 0 [facility] Serum Aspergillus fumigatus IgE antibody assay (units/volume)Ordered By: Dr. Romo on 08-13-2022 A. fumigatus IgE Qn (S) <0.10 kU/L Class 0 [facility] Serum Bermuda grass IgE anti body assay (units/volume)Ordered By: Dr. Romo on 08-13-2022 Bermuda grass IgE Qn (S) <0.10 kU/L Class 0 [facility] Serum Cladosporium herbarum IgE antibody assay (units/volume)Ordered By: Dr. Romo on 08-13-2022 C. herbarum IgE Qn (S) <0.10 kU/L Class 0 [facility] Serum Dermatophagoides farin ae specific IgE antibody assay (units/volume)Ordered By: Dr. Romo on 08-13-2022 Turkish house dust mite IgE Qn (S) <0.10 kU/L Class 0 [facility] Serum house dust mi te IgE antibody assay (units/volume)Ordered By: Dr. Romo on 08-13-2022 house dust mite IgE Qn (S) <0.10 kU/L Class 0 [facility] Serum Penicillium notatum Ig E antibody assay (units/volume)Ordered By: Dr. Romo on 08-13-2022 P. notatum IgE Qn (S) <0.10 kU/L Class 0 [facility] Serum Periplaneta americana IgE antibody assay (units/volume)Ordered By: Dr. Romo on 08-13-2022 Turkish Cockroach IgE Qn (S) <0.10 kU/L Class 0 [facility] Serum Burkinan thistle specif ic IgE antibody assayOrdered By: Dr. Romo on 08-13-2022 Saltwort IgE Qn (S) <0.10 kU/L Class 0 [facility] Serum birch specific IgE ant ibody assayOrdered By: Dr. Romo on 08-13-2022 Silver Birch IgE Qn (S) <0.10 kU/L Class 0 [facility] Serum black walnut IgE antib deanna assay (units/volume)Ordered By: Dr. Romo on 08-13-2022 Black Clermont IgE Qn (S) <0.10 kU/L Class 0 [facility] Serum cottonwood IgE antibod y assay (units/volume)Ordered By: Dr. Romo on 08-13-2022 Tanana IgE Qn (S) <0.10 kU/L Class 0 [facility] Serum dog epithelium IgE ant ibody assay (units/volume)Ordered By: Dr. Romo on 08-13-2022 Dog epithelium IgE Qn (S) <0.10 kU/L Class 0 [facility] Serum mountain cedar specifi c IgE antibody assayOrdered By: Dr. Romo on 08-13-2022 Mountain Juniper IgE Qn (S) <0.10 kU/L Class 0 [facility] Serum pecan or hickory nut I gE antibody assay (units/volume)Ordered By: Dr. Romo on 08-13-2022 Pecan or [employer] Nut IgE Qn (S) <0.10 kU/L Class 0 [facility] Serum sheep sorrel IgE antib deanna assay (units/volume)Ordered By: Dr. Romo on 08-13-2022 Sheep Lamy IgE Qn (S) <0.10 kU/L Class 0 [facility] Serum gloria IgE antibody a ssay (units/volume)Ordered By: Dr. Romo on 08-13-2022 Gloria IgE Qn (S) <0.10 kU/L Class 0 [facility] Serum white konrad IgE antibody assay (units/volume)Ordered By: Dr. Romo on 08-13-2022 White Konrad IgE Qn (S) <0.10 kU/L Class 0 [facility] Serum white elm IgE antibody assay (units/volume)Ordered By: Dr. Romo on 08-13-2022 White Elm IgE Qn (S) <0.10 kU/L Class 0 [facility] Serum white mulberry IgE ant ibody assay (units/volume)Ordered By: Dr. Romo on 08-13-2022 White mulberry IgE Qn (S) <0.10 kU/L Class 0 [facility] EMERGENCY REPORTon 2 EMERGENCY REPORT [facility] EMERGENCY ROOM REPORT NAME ACCOUNT SEX AGE ADMIT DISCHARGE PT MED. RECORD# NUMBER DATE DATE TYPE ANGELA AGUILAR [id number] M 72 03/29/22 2 [id number] ROOM: 309 DATE OF : 1950 DICTATING PHYSICIAN: Og Puentes CHIEF COMPLAINT: Shortness of breath. HISTORY OF PRESENT ILLNESS: The patient states that he has had a long history of lung problems. When I asked him if he was diagnosed with COPD or asthma, he was not completely sure but thought that he was told that he had COPD in the past. Over the last week, he has developed increasing shortness of breath. He did not think he had any fever. No nausea or vomiting. He has shortness of breath that is worse with activity. 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 He states he thinks that is what made things worse. He did see his family physician a couple of days ago and was given an albuterol inhaler and Zithromax. He states that the inhaler helped some, but it only lasted 2 or 3 hours. He is moderately dyspneic all the time but particularly with activity. He is not complaining of chest pain. He has a minimal cough, but it is nonproductive. PAST MEDICAL HISTORY: Significant for lung problems. He has been treated for this in the past but is pretty unsure exactly what problems he had or what diagnosis he was given, though it sounds like he was told he had COPD. He does not have any known heart disease. No other medical problems. PAST SURGICAL HISTORY: No surgeries. ALLERGIES: No allergies. SOCIAL HISTORY: He is James. He lives at home. He does work. He has smoked in the past though has not smoked for a number of years. He does not drink alcohol. REVIEW OF SYSTEMS: As mentioned above. Other systems are negative. PHYSICAL EXAMINATION: GENERAL: This is a 72-year-old, thin male who is awake, alert, appropriate and pleasant. He does not appear toxic. He does appear moderately dyspneic at rest. SKIN: Skin is pink, warm and dry without any rashes. HEENT: Examination is all within normal limits. NECK: Neck is supple without JVD. LUNGS: He has a barrel-shaped chest with a fairly marked increased AP diameter. He has quite diminished breath sounds bilaterally but no olman crackles. He has perhaps some very minimal wheezes. He is mildly tachypneic. CARDIAC: Cardiac examination is a regular rhythm without any ectopy or murmurs. ABDOMEN: Abdomen is thin, soft and Page 1 of 2 ANGELA AGUILAR Emergency Room Report ANGELA AGUILAR : 1950 nontender. EXTREMITIES: He moves his extremities appropriately without any focal weaknesses. No cyanosis or edema. VITAL SIGNS: Blood pressure is 130/87, pulse 105, respirations 24, and oxygen saturation 90-92% on room air. As mentioned, he did appear moderately dyspneic. DIAGNOSTIC DATA: Chest x-ray shows flattened diaphragms with emphysematous changes but no acute infiltrate. He does have kyphosis from compression fractures. CBC shows a white count of 6100 and a normal hemoglobin and hematocrit. He does have eosinophilia of 12.7%. Otherwise negative. CMP showed the electrolytes were unremarkable. Mildly elevated CO2 of 32.3. Glucose was 73. BUN and creatinine were 10 and 1.09. Liver enzymes were normal. COVID swab was negative. Lactate was normal. Blood cultures were obtained and pending. EMERGENCY DEPARTMENT COURSE AND TREATMENT: I did place him on 2 liters. An IV was placed. Chest x-ray was obtained. DuoNeb aerosol and Solu-Medrol were given. He did have some improvement with the above treatments. He still remained somewhat dyspneic. DIAGNOSIS: Chronic obstructive pulmonary disease exacerbation. PLAN/DISPOSITION: It is felt that further observation is indicated. I discussed with Dr. Flower, who will admit for further management. Dictated By: Og Puentes MD 03/29/22 11:58 JOB #: [id number] Transcribed By: chuy 03/29/22 12:13 Electronically signed by: LELE Puentes M.D. 04/08/22 07:11 Page 2 of 2 ANGELA AGUILAR Emergency Room Report Normal [facility] CBC + DIFFon 03-29-2022 Baso # 0.00 x10EE3/UL Normal 0.00 - 0.10 [facility] Comment on above: Performed By: #### 2 [id number] #### [facility],[address],[place] [address] Basophils/100 WBC (Bld) 0.6 % Normal 0.0 - 2.0 [facility] Comment on above: Performed By: #### 2 06483 #### [facility],[address] [place] [address] CBC + DIFF Normal [facility] Comment on above: Result Comment: CBC- COMPLETE BLOOD COUNT Performed By: #### 2 49412 #### [facility],[address] [place] [address] EO # 0.80 x10EE3/UL High 0.00 - 0.50 [facility] Comment on above: Performed By: #### 2 10933 #### [place] [address] Eosinophils/100 WBC (Bld) 12.7 % High 0.0 - 7.0 [facility] Comment on above: Performed By: #### 2 96270 #### [facility],[address] [place] [address] Erythrocyte distribution width (RBC) [Ratio] 13.9 % Normal 12.0 - 15.6 [facility] Comment on above: Performed By: #### 2 11867 #### [facility],[address] [place] [address] Hematocrit (Bld) [Volume fraction] 41.5 % Normal 40.0 - 52.0 [facility] Comment on above: Performed By: #### 2 44199 #### [facility],[address] [place] [address] Hemoglobin (Bld) [Mass/Vol] 13.8 g/dL Normal 13.0 - 17.5 [facility] Comment on above: Performed By: #### 2 17099 #### [facility],[address] [place] [address] Lymph # 1.40 x10EE3/UL Normal 0.80 - 2.80 [facility] Comment on above: Performed By: #### 2 05461 #### [facility],[address] [place] [address] Lymphocytes/100 WBC (Bld) 22.7 % Normal 20.0 - 45.0 [facility] Comment on above: Performed By: #### 2 37141 #### [facility],[address] [place] [address] MANUAL DIFF N/A Normal [facility] Comment on above: Performed By: #### 2 58112 #### [facility],[address] [place] [address] MCH (RBC) [Entitic mass] 31 pg Normal 27 - 33 [facility] Comment on above: Performed By: #### 2 33929 #### [facility],[address] [place] [address] MCHC 33 X10 3 Normal 32 - 36 [facility] Comment on above: Performed By: #### 2 12175 #### [facility],[address] [place] [address] MCV (RBC) [Entitic vol] 93 fL Normal 81 - 98 [facility] Comment on above: Performed By: #### 2 61364 #### [facility],[address] [place] [address] Wagoner # 0.60 x10EE3/UL Normal 0.20 - 1.00 [facility] Comment on above: Performed By: #### 2 22041 #### [facility],[address] [place] [address] MONOS % 9.2 % Normal 0.0 - 10.0 [facility] Comment on above: Performed By: #### 2 32658 #### [facility],[address] [place] [address] Morphology Ace (Bld) [Interp] N/A Normal [facility] Comment on above: Result Comment: {CD] Performed By: #### 2 34662 #### [facility],[address],[place] [address] Neut # 3.40 x10EE3/UL Normal 1.50 - 7.10 [facility] Comment on above: Performed By: #### 2 68349 #### [facility],[address] [place] [address] Neutrophils/100 WBC (Bld) 54.8 % Normal 46.0 - 76.0 [facility] Comment on above: Performed By: #### 2 50668 #### [facility],[address] [place] [address] PLATELET 244 x10EE3/UL Normal 150 - 450 [facility] Comment on above: Performed By: #### 2 10653 #### [facility],[address] [place] [address] Platelet mean volume (Bld) [Entitic vol] 7.5 fL Normal 6.4 - 10.5 [facility] Comment on above: Result Comment: AUTO MATED DIFFERENTIAL Performed By: #### 2 33280 #### [facility],[address] [place] [address] RBC 4.47 x 10EE6/UL Low 4.50 - 6.00 [facility] Comment on above: Performed By: #### 2 50276 #### [facility],[address] [place] [address]33 WBC 6.1 x 10EE3/UL Normal 4.5 - 10.8 [facility] Comment on above: Performed By: #### 2 25525 #### [facility],[address] [place] [address] CHEST 2 VIEWSon 03-29-2022 CHEST 2 VIEWS [place] [address] Patient: ANGELA AGUILAR Phone#: : 1950 Age: 72 Gender: M Pt. Type: ER Account: [id number] Location: 052 Ordering: OG PUENTES Exam Date: 03/29/2022/10:32 Family Phys: Charge Code: [id number] Physician: [place] Order #: [id number] DLP Dose#: PROCEDURE: X-RAY CHEST 2 VIEWS COMPARISON: None. INDICATIONS: Shortness of breath. FINDINGS: LUNGS: There is hyperaeration of the lung tompkins. No focal acute pulmonary parenchymal abnormality. VASCULATURE: Normal. Unremarkable pulmonary vasculature. CARDIAC: Normal. No cardiac silhouette abnormality or cardiomegaly. MEDIASTINUM: Aortic arch calcifications PLEURA: Normal. No effusion or pleural thickening. BONES: There is kyphosis of the thoracic spine. There is multiple wedge-shaped vertebral body compression fractures in the midthoracic spine. There is diffuse bony demineralization. OTHER: Negative. CONCLUSION: 1. Hyperaeration of the lung tompkins, correlate for COPD 2. Multilevel vertebral body wedge compression fractures contributing to kyphosis Dictated by: Sharda Bruce MD on 03/29/2022 at 10:53 Approved by: Sharda Bruce MD on 03/29/2022 at 10:57 Normal [facility] CMP with eGFRon 03-29-2022 AGE 72 years Normal [facility] Comment on above: Performed By: #### 2 15883 #### [address] [address] Albumin [Mass/Vol] 3.6 g/dL Normal 3.4 - 5.0 [facility] Comment on above: Performed By: #### 2 14734 #### [facility],[address] [place] [address] Albumin/Globulin [Mass ratio] 0.8 {ratio} Low 0.9 - 1.6 [facility] Comment on above: Performed By: #### 2 67592 #### [address] [address] ALK PHOS 58 U/L Normal 46 - 116 [facility] Comment on above: Performed By: #### 2 38511 #### [facility],[address] [place] [address] ALT [Catalytic activity/Vol] 19 U/L Normal 16 - 63 [facility] Comment on above: Performed By: #### 2 06458 #### [facility],[address] [place] [address] Anion gap [Moles/Vol] 10 mmol/L Normal 10 - 20 [facility] Comment on above: Performed By: #### 2 64399 #### [facility],[address] [place] [address] AST [Catalytic activity/Vol] 19 U/L Normal 15 - 37 [facility] Comment on above: Performed By: #### 2 78256 #### [facility],[address] [place] [address] B/C RATIO 9 ratio Normal 0 - 30 [facility] Comment on above: Performed By: #### 2 70249 #### [facility],[address] [place] [address] Bilirubin [Mass/Vol] 0.5 mg/dL Normal 0.2 - 1.0 [facility] Comment on above: Performed By: #### 2 74396 #### [facility],[address] [place] [address] Calcium [Mass/Vol] 8.8 mg/dL Normal 8.5 - 10.1 [facility] Comment on above: Performed By: #### 2 66363 #### [facility],[address] [place] [address] Chloride [Moles/Vol] 102 mmol/L Normal 98 - 107 [facility] Comment on above: Performed By: #### 2 41472 #### [facility],[address] [place] [address] CMP with eGFR Normal [facility] Comment on above: Result Comment: COMP REHENSIVE METABOLIC PANEL Performed By: #### 2 13935 #### [facility],[address] [place] [address] CO2 [Moles/Vol] 32.3 mmol/L High 21.0 - 32.0 [facility] Comment on above: Performed By: #### 2 74799 #### [facility],[address] [place] [address] Creatinine [Mass/Vol] 1.09 mg/dL Normal 0.70 - 1.30 [facility] Comment on above: Performed By: #### 2 81245 #### [facility],[address] [place] [address] GFR/1.73 sq M.predicted among non-blacks MDRD (S/P/Bld) [Vol rate/Area] mL/min/{1.73_m2} Normal 60 - 999 [facility] Comment on above: Performed By: #### 2 16461 #### [address] [address] Result Comment: ACCO RDING TO THE NATIONAL KIDNEY DISEASE EDUCATION PROGRAM(NKDE), A NORMAL eGFR IS A VALUE GREATER THAN OR EQUAL TO 60 ML/MIN/1.73 SQ METERS. CHRONIC KIDNEY DISEASE: <60mL/MIN/1.73 SQ METERS KIDNEY FAILURE: <15mL/MIN/1.73 SQ METERS THIS TEST SHOULD ONLY BE USED FOR PATIENTS 18 YEARS OF AGE AND OLDER. Globulin (S) [Mass/Vol] 4.4 g/dL High 1.5 - 3.8 [facility] Comment on above: Performed By: #### 2 34992 #### [facility],[address] [place] [address] Glucose [Mass/Vol] 73 mg/dL Low 74 - 106 [facility] Comment on above: Performed By: #### 2 72192 #### [address] [address] Potassium [Moles/Vol] 4.0 mmol/L Normal 3.5 - 5.1 [facility] Comment on above: Performed By: #### 2 51345 #### [facility],[address] [place] [address] Protein [Mass/Vol] 8.0 g/dL Normal 6.4 - 8.2 [facility] Comment on above: Performed By: #### 2 69444 #### [facility],[address] [place] [address] Sodium [Moles/Vol] 140 mmol/L Normal 136 - 145 [facility] Comment on above: Performed By: #### 2 49415 #### [facility],[address] [place] [address] Urea nitrogen [Mass/Vol] 10 mg/dL Normal 7 - 18 [facility] Comment on above: Performed By: #### 2 16808 #### [facility],[address] [place] [address] CORONAVIRUS (SARS) ANTIGEN T ESTon 03-29-2022 EXTERNAL QC DONE? YES Normal [facility] Comment on above: Performed By: #### 2 17026 #### [facility],[address] [place] [address] INTERNAL CONTROL PASS Normal [facility] Comment on above: Performed By: #### 2 76253 #### [facility],[address] [place] [address] SARS ANTIGEN Negative Normal NORMAL: NEGATIVE [facility] Comment on above: Performed By: #### 2 66022 #### [facility],[address] [place] [address] SEND TO ? YES Normal [facility] Comment on above: Result Comment: SARS -CoV-2 THIS TEST IS BEING USED UNDER THE FDA EUA PROCEDURE. THIS ASSAY HAS BEEN VALIDATED AT [facility] FOR USE WITH NASAL AND NASOPHARYNGEAL SWAB SPECIMENS. INTERPRETIVE DATA TEST RESULTS SHOULD ALWAYS BE CONSIDERED IN THE CONTEXT OF CLINICAL OBSERVATIONS AND EPIDEMIOLOGICAL DATA IN MAKING FINAL DIAGNOSIS AND PATIENT MANAGEMENT DECISIONS. PATIENT MANAGEMENT SHOULD FOLLOW CURRENT CDC GUIDELINES. THE WILL SARS ANTIGEN RAE DOES NOT DIFFERENTIATE BETWEEN SARS-CoV & SARS-CoV-2. A POSITIVE TEST RESULT INDICATES THE PRESENCE OF SARS-CoV-2 NUCLEOCAPSID PROTEIN ANTIGEN, AND THE PATIENT IS INFECTED WITH THE VIRUS AND PRESUMED TO BE CONTAGIOUS. A NEGATIVE TEST RESULT FOR THIS TEST MEANS THAT SARS-CoV-2 NUCLEOCAPSID PROTEIN ANTIGEN WAS NOT PRESENT IN THE SPECIMEN ABOVE THE LIMIT OF DETECTION. HOWEVER, A NEGATIVE RESULT DOES NOT RULE OUT COVID-19 AND SHOULD NOT BE USED THE SOLE BASIS FOR TREATMENT OR PATIENT MANAGEMENT DECISIONS. A NEGATIVE RESULT DOES NOT EXCLUDE THE POSSIBILITY OF COVID-19. NEGATIVE RESULTS, FROM PATIENTS WITH SYMPTOM ONSET BEYOND FIVE DAYS, SHOULD BE TREATED PRESUMPTIVE AND CONFIRMATION WITH A MOLECULAR ASSAY, IF NECESSARY, FOR PATIENT MANAGEMENT, MAY BE PERFORMED. WHEN DIAGNOSTIC TESTING IS NEGATIVE, THE POSSIBLILTY OF A FALSE NEGATIVE RESULT SHOULD BE CONSIDERED IN THE CONTEXT OF A PATIENT'S RECENT EXPOSURES AND THE PRESENCE OF CLINICAL SIGNS AND SYMPTOMS CONSISTENT WITH COVID-19. THE POSSIBILITY OF A FALSE NEGATIVE RESULT SHOULD ESPECIALLY BE CONSIDERED IF THE PATIENT'S RECENT EXPOSURES OR CLINICAL PRESENTATION INDICATE THAT COVID-19 IS LIKELY, AND DIAGNOSTIC TESTS FOR OTHER CAUSES OF ILLNESS (e.g., OTHER RESPIRATORY ILLNESS) ARE NEGATIVE. IF COVID-19 IS STILL SUSPECTED BASED ON EXPOSURE HISTORY TOGETHER WITH OTHER CLINICAL FINDINGS, RE-TESTING SHOULD BE CONSIDERED BY HEALTHCARE PROVIDERS IN CONSULTATION WITH PUBLIC HEALTH AUTHORITIES. Performed By: #### 2 [id number] #### [facility],[address] [place], [place] [id number] CULTURE BLOODon 03-29-2022 Microscopic examination of blood, culture CULTURE BLOOD CULTURE BLOOD ORDER # [id number] SET: 2 of 2 24HOUR REPORT NEGATIVE 48HOUR REPORT NEGATIVE 72HOUR REPORT NEGATIVE M I C R O B I O L O G Y R E P O R T FINAL ------- Antimicrobial Susceptibility and Organism Identification Report -------- Specimen Number : [id number] Requested : 03/29/22 Specimen Source : BLOOD Collected : 03/29/22 11:07 [facility] Isolation : EMERGENCY ROOM Received : 03/29/22 11:07 Requesting Physician : JIM ADAMS -- Patient/Specimen Tests and Comments Specimen Comments -------- -------- FINAL REPORT: NO GROWTH AT 5 DAYS -- Tech : Source : BLOOD ID # : [id number] FINAL Report Date : / / : Collected : 03/29/22 11:07 04/03/22.1437.KLS. 04/03/22.1437.KLS.COMPLETE 2 of 2 NEGATIVE NEGATIVE NEGATIVE Normal [facility] Comment on above: Performed By: #### 2 94800 #### [facility],[address] [place], [place] [id number] Microscopic examination of blood, culture CULTURE BLOOD CULTURE BLOOD ORDER # [id number] SET: 1 of 2 24HOUR REPORT NEGATIVE 48HOUR REPORT NEGATIVE 72HOUR REPORT NEGATIVE M I C R O B I O L O G Y R E P O R T FINAL ------- Antimicrobial Susceptibility and Organism Identification Report -------- Specimen Number : [id number] Requested : 03/29/22 Specimen Source : BLOOD Collected : 03/29/22 10:30 [place] [facility] Isolation : EMERGENCY ROOM Received : 03/29/22 10:30 Requesting Physician : JIM ADAMS -- Patient/Specimen Tests and Comments Specimen Comments -------- -------- FINAL REPORT: NO GROWTH AT 5 DAYS -- Tech : Source : BLOOD ID # : [id number] FINAL Report Date : / / : Collected : 03/29/22 10:30 04/03/22.1214.KLS. 04/03/22.1214.KLS.COMPLETE 1 of 2 NEGATIVE NEGATIVE NEGATIVE Normal [facility] Comment on above: Performed By: #### 2 66845 #### [facility],[address] [place] [address]7917 D-DIMER, QUANTITATIVEon 03-10 D-DIMER QUANT 198 ng/ml Normal 0 - 230 [facility] Comment on above: Performed By: #### 2 28964 #### [facility],[address] [place] [address] 41988 D-DIMER, QUANTITATIVE Normal [facility] Comment on above: Result Comment: ELIZABETH T D-DIMER Performed By: #### 2 25353 #### [facility],[address] [place] [address] 65960 LACTATEon 03-29-2022 Lactate [Moles/Vol] 1.3 mmol/L Normal 0.4 - 2.0 [facility] Comment on above: Performed By: #### 2 36645 #### [facility],[address] [place] [address] 67389 NT-proBNPon 03-29-2022 Natriuretic peptide B (Bld) [Mass/Vol] 71 pg/mL Normal 0 - 125 [facility] Comment on above: Performed By: #### 2 44840 #### [facility],[address] [place] [address] 70374 TROPONIN I, HIGH SENSITIVITY on 03-29-2022 HS TROPONIN 5.7 pg/mL Normal 0.0 - 76.2 [facility] Comment on above: Performed By: #### 2 27018 #### [facility],[address] [place] [address] 43598 URINALYSISon 03-29-2022 Bilirubin Ql (U) Negative Normal NORMAL: NEGATIVE [facility] Comment on above: Performed By: #### 2 20290 #### [facility],[address] [place] [address] 59426 Clarity (U) clear Normal NORMAL: CLEAR [facility] Comment on above: Performed By: #### 2 89020 #### [facility],[address] [place] [address] 30047 Color (U) p.yel Normal NORMAL: YELLOW [facility] Comment on above: Performed By: #### 2 69805 #### [facility],[address] [place] [address] 48011 Glucose Ql (U) NORM Normal NORMAL: NORMAL [facility] Comment on above: Performed By: #### 2 69616 #### [facility],[address] [place] [address] 47356 Hemoglobin Ql (U) Negative Normal NORMAL: NEGATIVE [facility] Comment on above: Performed By: #### 2 88640 #### [facility],[address] [place] [address] 80032 Ketone Negative Normal NORMAL: NEGATIVE [facility] Comment on above: Performed By: #### 2 08056 #### [facility],[address] [place] [address] 08364 Leukocytes Negative Normal NORMAL: NEGATIVE [facility] Comment on above: Performed By: #### 2 07436 #### [facility],[address] [place] [address] 28585 Nitrite Ql (U) Negative Normal NORMAL: NEGATIVE [facility] Comment on above: Performed By: #### 2 89853 #### [facility],[address] [place] [address] 96241 pH (U) 7 [pH] Normal NORMAL: 5.0-8.0 [facility] Comment on above: Performed By: #### 2 29834 #### [facility],[address] [place] [address] 52462 Protein Ql (U) Negative Normal NORMAL: NEGATIVE [facility] Comment on above: Performed By: #### 2 35013 #### [facility],[address] [place] [address] Sp [place] 1.010 Normal NORMAL: 1.010-1.03 0 [facility] Comment on above: Performed By: #### 2 80040 #### [facility],[address] [place] [address] Specimen Type UNSPECIFIED Normal [facility] Comment on above: Performed By: #### 2 42818 #### [facility],[address] [place] [address] Urinalysis dipstick W Reflex Microscopic panel (U) NOT INDICATED Normal [facility] Comment on above: Performed By: #### 2 01919 #### [facility],[address] [place] [address] Urobilinog NORM Normal NORMAL: NORMAL [facility] Comment on above: Performed By: #### 2 37755 #### [facility],[address] [place] [address] [facility] Surgical Pathology Department Name ANGELA AGUILAR Pathologist: SCARLETT CORTES MD Date of Procedure: 09/22/2020 Date Received: 09/22/2020 Date Reported 09/27/2020 Submitting Physician: YIFAN GAMINO DO Location: [facility] Other External # FINAL DIAGNOSIS A. COLON, BIOPSY: --COLONIC MUCOSA, NO SIGNIFICANT PATHOLOGIC ABNORMALITY. B. SIGMOID POLYP, POLYPECTOMY: --TUBULAR ADENOMA. Interpretation was performed at: [facility] Department of Pathology [address] [place] [address] Electronically Signed Out By SCARLETT CORTES MD/RUSSELL By the signature on this report, the individual or group listed as making the Final Interpretation/Diagnosis certifies that they have reviewed this case. Clinical History: diarrhea R19.7 Specimens Submitted As: A: RANDOM COLON BIOPSY B: SIGMOID POLYP Gross Description: A: Received in formalin, labeled with the patient's name and hospital number and A, are multiple fragments of ramachandran, soft tissue aggregating to 1.8 x 0.4 x 0.2 cm. The specimen is submitted in toto in one cassette. CJN B: Received in formalin, labeled with the patient's name and hospital number and B, is a fragment of ramachandran, soft tissue measuring 3 x 0.3 cm. The specimen is submitted in toto in one cassette. CJN cjn/09/25/2020 [facility] Department of Pathology [address] [place] [address] [facility] Comment on above: Performed By: #### [facility] #### [facility] Surgical Pathology Department [address] [place] [id number] CORONAVIRUS 2019, SCREEN ASY MPTOMATICon 09-21-2020 CORONAVIRUS 2019,PCR NOT DETECTED Normal Not Detected [facility] Comment on above: Result Comment: . This assay is designed to detect the N, ORF1ab and/or S genes of SARS-CoV-2 via nucleic acid amplification. A Negative (NOT DETECTED) result does not preclude 2019-nCoV infection since the adequacy of sample collection and/or low viral burden may result in presence of viral nucleic acids below the clinical sensitivity of this test method. Negative (NOT DETECTED) result should not be used as the sole basis for treatment or other patient management decisions. Rather negative results should be combined with clinical observations, patient history, and epidemiological information to make patient management decisions. Fact sheet for providers: https://www.fda.gov/media/752483/download Fact sheet for patients: https://www.fda.gov/media/415375/download This test has received FDA Emergency Use Authorization (EUA) and has been verified by [facility] ([facility]). This test is only authorized for the duration of time that circumstances exist to justify the authorization of the emergency use of in vitro diagnostic tests for the detection of SARS-CoV-2 virus and/or diagnosis of COVID-19 infection under section 564(b)(1) of the Act, 21 U.S.C. 360bbb-3(b)(1), unless the authorization is terminated or revoked sooner. [facility] is certified under CLIA-88 as qualified to perform high complexity testing. Testing is performed in the [facility] laboratories located at [id number] [place] [address]. Performed By: #### C OVSC #### [facility] [address] COUNTS INCLUDE 234 BEDS AT THE [facility]. [place] [id number] Covid 19 Resultson 1 Covid 19 Results NEGATIVE COVID-[address] Coronaviruses are common world-wide and are the cause of many common colds. SARS-COV2 is a new coronavirus that began circulating worldwide in 2019 so we are calling it COVID-19. It has been estimated that four out of five patients with COVID-19 will recover at home without the need for medical attention. Symptoms of COVID-19 include cough, fever, shortness of breath, loss of taste or smell and other flu-like symptoms including chills, sore muscles, sore throat, and headache. Severe illness is more common in older people and people with other health problems such as high blood pressure, obesity, and immune system problems. If the test is positive, you have COVID-19. You will be contacted by the ordering physicians office and instructed to remain on home isolation, in accordance with CDC guidelines. You may also be contacted by the [facility] to see if any of your close contacts may have been exposed to the virus and need to quarantine. If the test is negative, you likely do not have COVID-19 at this time, but you still may have a different illness that can spread to other people (like Influenza, or the Flu) and could still be at risk for getting COVID-19. We recommend that you stay away from other people to limit the spread of illness until your symptoms are improving and you are fever-free for 24 hours without the use of fever lowering medications such as acetaminophen or ibuprofen. No test is 100% accurate so if you are still concerned you may have COVID-19, talk to your doctor about the need to continue to stay away from others. Medicines Acetaminophen (Tylenol and others) is generally safe. Anti-inflammatory medications, such as Ibuprofen (Advil or Motrin) or Naproxen (Aleve) can also be used. Hzml-idd-ekqobdy cough and cold medicines can be used according to the instructions on the package. Some pczh-hxc-jlzvedb medicines also contain acetaminophen. Make sure you are not taking more than your recommended dose For those not hospitalized, there is no specific treatment available for this illness. Antibiotics do not treat Coronaviruses. Follow-Up Follow up with your doctor by scheduling a virtual visit or consider follow-up at one of our urgent care fever clinics. If you are having difficulty breathing, or are very weak and having difficulty standing, this is a medical emergency. Call 911 or have someone take you to the nearest emergency room immediately. If possible, wear a facemask. Additional guidance from the CDC for patients who tested POSITIVE for COVID-19 How to isolate: Isolate yourself in a specific room at home and limit your contact with others. Use a separate bathroom from other members of the household, when possible. Leave home only to get essential medical care. Do not go to work, school or public areas. Avoid using public transportation, ride-sharing, or taxis. Restrict contact with pets and other animals. If you must care for your pet or be around animals while you are sick, wash your hands before and after your interaction and wear a facemask. Make sure that shared spaces in the home have good airflow, such as by an air conditioner or an opened window, weather permitting. Personal Hygiene Procedures: Wear a face mask when in the same room as other people or pets. If a face mask interferes with your breathing, others should wear a mask when sharing space with you. Frequent hand-washing: wash your hands with soap and water for at least 20 seconds. If soap and water are not available, use alcohol-based hand pill coater. Avoid touching your eyes, nose, and mouth with unwashed hands. Household Hygiene Procedures: Avoid sharing personal household items such as dishes, glassware, cups, eating utensils, towels or bedding with other people or pets in your home. After use, these items should be washed with soap and hot water. Disinfect all high-touch surfaces every day with antibacterial cleaning solutions such as Lysol wipes, bleach, cleansers, etc. High-touch surfaces include tabletops, doorknobs, bathroom fixtures, toilets, phones, keyboards, tablets and bedside tables. Immediately clean any surfaces that may have blood, poop or body fluids on them, using antibacterial cleaning solutions such as Lysol wipes, bleach, cleansers, etc. If clothing or bedding come into contact with blood, poop or body fluids, they should be washed immediately. Follow the directions on the laundry detergent and clothing labels but hot water is recommended when possible. Stopping home isolation precautions: If possible, consult your doctor before stopping home isolation precautions. According to the CDC, you can discontinue home isolation precautions when you have met both of these criteria: Your fever and respiratory symptoms have been gone for 24 hours without the use of any medicines like ibuprofen (Motrin) and acetaminophen (Tylenol). It has been at least 10 days since your symptoms first appeared. If you are immunosuppressed OR you were admitted to the hospital for this, you should wait until it has been 14 days since your symptoms first appeared. Guidelines for Those Living With and/or Caring For Persons with COVID-19: Read and follow all the recommendations outlined in this handout. Do not permit visitors in the home unless there is an essential need. Wear a facemask when in the same room as the patient. Wear a facemask and gloves (disposable if available) when you touch or have contact with the patient's blood, poop, or body fluids including saliva, phlegm, nasal mucus, vomit or urine. Clean or throw away facemasks and gloves after use and wash your hands with soap and water. You will need to quarantine (stay away from others) for 14 days after your last contact with your family member with COVID-19. The person with COVID-19 is considered contagious 48 hours prior to symptoms beginning (or starting with the day of the positive test if they have no symptoms) for a total of 10 days. Additional resources: [facility] COVID Hotline at 4-709-5RGNSUJ ( ). COVID-19 Careline at (available 24 hours per day, seven days a week if you or a loved one is experiencing anxiety related to the coronavirus pandemic). Clinical research opportunities: is conducting research studies to develop better testing and treatments for COVID. Do you want any information on how to participate Call [phone]. Websites: hospitals.org or www.CDC.gov Follow My Health / My [facility] (for other test results): Revised 07/26/2020 Electronic Signatures: Lorena Carrillo (ADMIN) (Signature pending) Authored Last Updated: 21-Sep-2020 08:10 by Lorena Carrillo (ADMIN) Normal [facility] CORONAVIRUS 2019, SCREEN ASY MPTOMATICon 09-20-2020 Lab Specimen Source Nasal, Nasopharyngeal Normal [facility] Comment on above: Performed By: #### C OVSC #### [facility] [address] [place] [address] Office Visiton 06-24-2017 Documentation of current medications (procedure) Done Invalid Interpretation Code [facility] Work Phone: [phone] Tobacco use HS Former smoker Invalid Interpretation Code [facility] Work Phone: [phone] Office Visiton 06-07-2017 Documentation of current medications (procedure) Done Invalid Interpretation Code [facility] Work Phone: [phone] Protein mass conc Done Invalid Interpretation Code [facility] Work Phone: [phone] Tobacco smoking status NHIS Former smoker Invalid Interpretation Code [facility] Work Phone: [phone] Tobacco use CPHS Former smoker Invalid Interpretation Code [facility] Work Phone: [phone] Office Visiton 05-24-2017 Documentation of current medications (procedure) Done Invalid Interpretation Code [facility] Work Phone: [phone] Documentation of current medications (procedure) T Invalid Interpretation Code [facility] Work Phone: [phone] Protein mass conc T Invalid Interpretation Code [facility] Work Phone: [phone] Office Visiton 05-17-2017 Tobacco use HS Former smoker Invalid Interpretation Code [facility] Work Phone: [phone] Ova and parasites Ova and parasites identified LM Nom (Unsp spec) [facility] Work Phone: Vital Signs Date Time Vital Sign Value Performing Clinician Facility 05-19-2025 06:38-0400 Body mass index (BMI) [Ratio] 20 kg/m2 Dr. Yoel Do DO Work Phone: [facility] 05-19-2025 06:38-0400 Body temperature 97.3 [degF] Dr. Yoel Do DO Work Phone: [facility] 05-19-2025 06:38-0400 Body weight 54.[address] Yoel Do DO Work Phone: [facility] 05-19-2025 06:38-0400 Diastolic blood pressure 75 mm[Hg] Dr. Yoel Do DO Work Phone: [facility] 05-19-2025 06:38-0400 Heart rate 88 /min Dr. Yoel Do DO Work Phone: [facility] 05-19-2025 06:38-0400 Respiratory rate 18 /min Dr. Yoel Do DO Work Phone: [facility] 05-19-2025 06:38-0400 SaO2% (BldA) [Mass fraction] 91 % Dr. Yoel Do DO Work Phone: [facility] 05-19-2025 06:38-0400 Systolic blood pressure 121 mm[Hg] Dr. Yoel Do DO Work Phone: [facility] 04-08-2025 00:46-0400 Body temperature 97.9 [degF] Dr. Yoel Do DO Work Phone: [facility] 04-08-2025 00:46-0400 Diastolic blood pressure 71 mm[Hg] Dr. Yoel Do DO Work Phone: [facility] 04-08-2025 00:46-0400 Heart rate 75 /min Dr. Yoel Do DO Work Phone: [facility] 04-08-2025 00:46-0400 Respiratory rate 14 /min Dr. Yoel Do DO Work Phone: [facility] 04-08-2025 00:46-0400 SaO2% (BldA) [Mass fraction] 98 % Dr. Yoel Do DO Work Phone: [facility] 04-08-2025 00:46-0400 Systolic blood pressure 128 mm[Hg] Dr. Yoel Do DO Work Phone: 4(831)063-240688 [address] 04-07-2025 22:59-0400 Inhaled oxygen flow rate 2 L/min Dr. Yoel Do DO Work Phone: 4(204)380-619688 [address] 04-07-2025 21:29-0400 Body height 165.[address] Yoel Do DO Work Phone: 9(135)220-924088 [address] 04-07-2025 21:29-0400 Body mass index (BMI) [Ratio] 20.1 kg/m2 Dr. Yoel Do DO Work Phone: 8(042)239-410888 [address] 04-07-2025 21:29-0400 Body weight 54.[address] Yoel Do DO Work Phone: 3(555)529-837288 [address] 01-14-2025 08:30-0400 Body mass index (BMI) [Ratio] 20 kg/m2 Dr. Yoel Do DO Work Phone: 3(089)887-465547 [place] [address] 01-14-2025 08:30-0400 Body temperature 97.4 [degF] Dr. Yoel Do DO Work Phone: 7(688)559-743988 [address] 01-14-2025 08:30-0400 Body weight 56.[address] Yoel Do DO Work Phone: 5(982)663-105488 [address] 01-14-2025 08:30-0400 Diastolic blood pressure 76 mm[Hg] Dr. Yoel Do DO Work Phone: 7(485)038-576488 [address] 01-14-2025 08:30-0400 Heart rate 84 /min Dr. Yoel Do DO Work Phone: 5(180)696-484688 [address] 01-14-2025 08:30-0400 Respiratory rate 16 /min Dr. Yoel Do DO Work Phone: [facility] 01-14-2025 08:30-0400 SaO2% (BldA) [Mass fraction] 95 % Dr. Yoel Do DO Work Phone: [facility] 01-14-2025 08:30-0400 Systolic blood pressure 136 mm[Hg] Dr. Yoel Do DO Work Phone: 1(000)774-091688 [address] 11-23-2024 07:29-0400 Body height 167.[address] Yoel Do DO Work Phone: 8(855)780-291788 [address] 11-23-2024 07:29-0400 Body mass index (BMI) [Ratio] 19.7 kg/m2 Dr. Yoel Do DO Work Phone: 4(620)157-432588 [address] 11-23-2024 07:29-0400 Body temperature 97.6 [degF] Dr. Yoel Do DO Work Phone: 6(735)817-396888 [address] 11-23-2024 07:29-0400 Body weight 55.[address] Yoel Do DO Work Phone: 1(847)046-692188 [address] 11-23-2024 07:29-0400 Diastolic blood pressure 71 mm[Hg] Dr. Yoel Do DO Work Phone: 4(445)638-534588 [address] 11-23-2024 07:29-0400 Heart rate 95 /min Dr. Yoel Do DO Work Phone: 5(170)939-478788 [address] 11-23-2024 07:29-0400 Respiratory rate 18 /min Dr. Yoel Do DO Work Phone: 1(094)128-067188 [address] 11-23-2024 07:29-0400 SaO2% (BldA) [Mass fraction] 94 % Dr. Yoel Do DO Work Phone: 5(046)361-822488 [address] 11-23-2024 07:29-0400 Systolic blood pressure 136 mm[Hg] Dr. Yoel Do DO Work Phone: 8(982)001-756747 [place] [address] 10-23-2024 15:21-0500 Body temperature 98.6 [degF] Dr. Yoel Do DO Work Phone: 8(825)592-200047 [place] [address] 10-23-2024 15:21-0500 Diastolic blood pressure 69 mm[Hg] Dr. Yoel Do DO Work Phone: 7(819)286-012447 [place] [address] 10-23-2024 15:21-0500 Heart rate 119 /min Dr. Yoel Do DO Work Phone: 9(235)370-915647 [place] [address] 10-23-2024 15:21-0500 Respiratory rate 16 /min Dr. Yoel Do DO Work Phone: 0(944)273-868547 [place] [address] 10-23-2024 15:21-0500 SaO2% (BldA) [Mass fraction] 97 % Dr. Yoel Do DO Work Phone: 8(541)810-234947 [place] [address] 10-23-2024 15:21-0500 Systolic blood pressure 122 mm[Hg] Dr. Yoel Do DO Work Phone: 8(887)679-449847 [place] [address] 10-23-2024 12:44-0500 Body weight 55.[address] Yoel Do DO Work Phone: 3(111)179-231947 [place] [address] 10-23-2024 07:45-0500 Inhaled oxygen flow rate 2.5 L/min Dr. Yoel Do DO Work Phone: 2(532)031-02[address] [place] [address] 10-23-2024 05:44-0500 Body mass index (BMI) [Ratio] 19.8 kg/m2 Dr. Yoel Do DO Work Phone: 6(271)687-889547 [place] [address] 11-20-2022 08:36-0400 Body height 167.[address] Yoel Do Work Phone: 8(663)755-504647 [place] [address] 11-20-2022 08:32-0400 Body mass index (BMI) [Ratio] 20.3 kg/m2 Dr. Yoel Do Work Phone: 7(570)526-208888 [address] 11-20-2022 08:32-0400 Body temperature 98.2 [degF] Dr. Yoel Do Work Phone: 2(367)523-417775 [place] [address] 11-20-2022 08:32-0400 Body weight 57.[address] Yoel Do Work Phone: 9(627)048-200988 [address] 11-20-2022 08:32-0400 Diastolic blood pressure 73 mm[Hg] Dr. Yoel Do Work Phone: 3(606)873-808247 [place] [address] 11-20-2022 08:32-0400 Heart rate 90 /min Dr. Yoel Do Work Phone: 7(085)614-232788 [address] 11-20-2022 08:32-0400 Respiratory rate 18 /min Dr. Yoel Do Work Phone: 7(517)392-754247 [place] [address] 11-20-2022 08:32-0400 SaO2% (BldA) [Mass fraction] 94 % Dr. Yoel Do Work Phone: 4(875)489-441747 [place] [address] 11-20-2022 08:32-0400 Systolic blood pressure 132 mm[Hg] Dr. Yoel Do Work Phone: 0(594)820-652547 [place] [address] 09-19-2022 08:36-0500 Body height 167.[address] Yoel Do Work Phone: 4(967)320-043347 [place] [address] 09-19-2022 08:36-0500 Body mass index (BMI) [Ratio] 20 kg/m2 Dr. Yoel Do Work Phone: 1(115)157-485747 [place] [address] 09-19-2022 08:29-0500 Body temperature 98.4 [degF] Dr. Yoel Do Work Phone: 0(541)242-204688 [address] 09-19-2022 08:29-0500 Body weight 56.[address] Yoel Do Work Phone: 5(656)398-656088 [address] 09-19-2022 08:29-0500 Diastolic blood pressure 73 mm[Hg] Dr. Yoel Do Work Phone: 5(197)622-246647 [place] [address] 09-19-2022 08:29-0500 Heart rate 82 /min Dr. Yoel Do Work Phone: 1(046)961-837788 [address] 09-19-2022 08:29-0500 Respiratory rate 20 /min Dr. Yoel Do Work Phone: 2(015)650-944147 [place] [address] 09-19-2022 08:29-0500 SaO2% (BldA) [Mass fraction] 94 % Dr. Yoel Do Work Phone: 4(246)229-955647 [place] [address] 09-19-2022 08:29-0500 Systolic blood pressure 120 mm[Hg] Dr. Yoel Do Work Phone: 8(501)009-585947 [place] [address] 08-13-2022 07:19-0500 Body height 167.[address] Yoel Do Work Phone: 3(768)880-863288 [address] Work Phone: 08-13-2022 07:19-0500 Body mass index (BMI) [Ratio] 19.8 kg/m2 Dr. Yoel Do Work Phone: 2(791)949-159047 [place] [address] 08-13-2022 07:19-0500 Body temperature 98.2 [degF] Dr. Yoel Do Work Phone: 5(342)709-609488 [address] 08-13-2022 07:19-0500 Body weight 55.[address] Yoel Do Work Phone: 9(406)383-555947 [place] [address] 08-13-2022 07:19-0500 Diastolic blood pressure 75 mm[Hg] Dr. Yoel Do Work Phone: 6(861)196-004347 [place] [address] 08-13-2022 07:19-0500 Heart rate 92 /min Dr. Yoel Do Work Phone: 2(954)784-989288 [address] 08-13-2022 07:19-0500 Respiratory rate 16 /min Dr. Yoel Do Work Phone: 2(499)707-257647 [place] [address] 08-13-2022 07:19-0500 SaO2% (BldA) [Mass fraction] 95 % Dr. Yoel Do Work Phone: 1(009)260-322188 [address] 08-13-2022 07:19-0500 Systolic blood pressure 136 mm[Hg] Dr. Yoel Do Work Phone: [facility] 05-17-2017 12:56-0400 BMI (Body Mass Index) 20.66 kg/m2 [facility] Work Phone: 05-17-2017 12:56-0400 Height 167.64 cm [facility] Work Phone: 05-17-2017 12:56-0400 Weight 58.06 kg [facility] Work Phone: Encounters Encounter Date Encounter Type Care Provider Facility Start: 05-19-2025 End: 05-19-2025 Patient encounter procedure HESHAM Pink -[facility] Work Phone: Start: 05-19-2025 End: 05-19-[address] Yoel Do DO Work Phone: -[facility] Start: 04-07-2025 End: 04-08-2025 Emergency department patient visit Dr. Yoel Do DO Work Phone: -Emergency Department Work Phone: Start: 03-23-2025 End: 03-23-[address] Yoel Do DO Work Phone: -Cat Scan [facility] Start: 03-23-2025 End: 03-23-[address] Paras Renee DO -Cat Scan [facility] Work Phone: Start: 03-23-2025 End: 03-23-2025 ambulatory Paras Renee Facility:[facility] Start: 01-14-2025 End: 01-14-[address] Paras Renee DO -[facility] Work Phone: Start: 01-14-2025 End: 01-14-2025 ambulatory Paras Renee Facility:[facility] Start: 12-22-2024 End: 12-22-[address] Yoel Do DO Work Phone: [facility] Work Phone: Start: 12-22-2024 End: 12-22-2024 Patient encounter procedure Jackelin Davis LIQUID YEAST SUPERVISOR[facility] Start: 12-22-2024 End: 12-22-2024 ambulatory Jackelin Davis LIQUID YEAST SUPERVISOR Facility:[facility] Start: 11-23-2024 End: 11-23-2024 Patient encounter procedure Jackelin Davis LIQUID YEAST SUPERVISOR-C -[facility] Work Phone: Start: 11-23-2024 End: 11-23-2024 ambulatory Jackelin Davis LIQUID YEAST SUPERVISOR Facility:[facility] Start: 10-23-2024 Non-patient / Non-visit Dr. Scarlett Vasquez [facility] Work Phone: Start: 10-23-2024 Non-patient / Non-visit Dr. Paras torres DO [facility] Start: 10-22-2024 ambulatory Jani Britt Facility: [facility] Start: 10-22-2024 End: 10-23-2024 Evaluation and management of inpatient Dr. Scarlett Morse DO -Progressive Care Unit Work Phone: Start: 02-12-2023 Non-patient / Non-visit Dr. Radha Do Work Phone: [facility] Start: 02-11-2023 End: 02-11-[address] Yoel Do Work Phone: [facility] Work Phone: Start: 02-11-2023 End: 02-11-[address] Yoel Do Work Phone: [facility]-Pulmonary Services/Neurology Start: 11-20-2022 End: 11-20-[address] Yoel Do Work Phone: [facility]-Pulmonary Medicine [facility] Start: 11-09-2022 Non-patient / Non-visit Dr. Radha Do Work Phone: [facility] Start: 11-09-2022 End: 11-09-[address] Yoel Do Work Phone: [facility] Work Phone: Start: 11-09-2022 End: 11-09-[address] Yoel Do Work Phone: [facility]-Pulmonary Services/Neurology Start: 10-11-2022 End: 10-11-[address] Yoel Do Work Phone: [facility] Work Phone: Start: 10-11-2022 End: 10-11-[address] Yoel Do Work Phone: [facility]-Sleep Lab Start: 09-19-2022 End: 09-19-[address] Yoel Do Work Phone: [facility] Work Phone: Start: 09-19-2022 End: 09-19-[address] Yoel Do Work Phone: [facility]-Laboratory Start: 09-19-2022 End: 09-19-[address] [facility] Start: 08-27-2022 Non-patient / Non-visit Dr. Radha Do Work Phone: [facility] Start: 08-27-2022 End: 08-27-[address] Yoel Do Work Phone: [facility] Work Phone: Start: 08-27-2022 End: 08-27-[address] Yoel Do Work Phone: [facility]-Pulmonary Services/Neurology Start: 08-20-2022 End: 08-20-[address] Yoel Do Work Phone: [facility]-Laboratory, Specimen Start: 08-13-2022 End: 08-13-[address] Yoel Do Work Phone: [facility] Work Phone: Start: 08-13-2022 End: 08-13-[address] Yoel Do Work Phone: [facility]-Laboratory Start: 08-13-2022 End: 08-13-[address] Yoel Do Work Phone: [facility]-Pulmonary Medicine [facility] Start: 03-29-2022 End: 03-30-2022 ambulatory BOBO CHIEF MECHANICAL ENGINEER-C [facility] Procedures Date Procedure Procedure Detail Performing Clinician Start: 04-07-[address] Yoel Do DO Work Phone: Start: 04-07-2025 Plain chest X-ray Dr. Brianne Do DO Work Phone: Start: 03-23-2025 CT of chest without contrast Dr. Yoel Do DO Work Phone: Start: 12-22-2024 CT of chest without contrast Dr. Yoel Do DO Work Phone: Start: 10-22-2024 CT angiography of ch est with contrast Dr. Yoel Do DO Work Phone: Start: 10-22-2024 Plain chest X-ray Dr. Brianne Do DO Work Phone: Start: 10-22-[address] Yoel Do DO Work Phone: Start: 10-22-2024 Legionella pneumophi la antigen assay Dr. Yoel Do DO Work Phone: Start: 10-22-[address] Yoel Do DO Work Phone: Start: 10-22-2024 Streptococcus pneumo niae antigen assay Dr. Yoel Do DO Work Phone: Start: 08-13-2022 Plain chest X-ray Dr. Brianne Do Work Phone: Start: 03-29-2022 Urinalysis BOBO Estrada Comment on above: Result Comment: URIN ALYSIS Performed By: #### 2 [id number] #### [facility] [place] [address] [place] [address] parasites identification [address] Yoel Do Work Phone: [place] parasites identification Dr. Yoel Do Work Phone: Plan of Treatment Date Care Activity Detail Author Start: 04-08-2025 [facility] Start: 04-07-2025 End: 04-07-2025 [facility] Start: 10-23-2024 Patient discharge [facility] Start: 10-23-2024 Patient referral to dietitian [facility] Start: 10-23-2024 Inhalation therapy procedure [facility] Start: 10-22-2024 Following clinical pathway protocol [facility] Start: 10-22-2024 Assessment of risk of venous thromboembolism [facility] Start: 10-22-2024 Incentive spirometry [facility] Start: 10-22-2024 Insertion of catheter into peripheral vein [facility] Start: 10-22-2024 Measuring intake and output [facility] Start: 10-22-2024 Oxygen therapy [facility] Start: 10-22-2024 Providing care according to standard [facility] Start: 10-22-2024 Provision of activity privileges [facility] Start: 10-22-2024 Referral to service [facility] Start: 10-22-2024 [facility] Start: 10-22-2024 Admission procedure [facility] Start: 01-17-2023 Measurement of respiratory function [facility] Start: 08-13-2022 IgE [Units/volume] in Serum or Plasma [facility] Work Phone: Start: 08-13-2022 [facility] Work Phone: Start: 08-12-2017 End: 08-12-[address] [facility] Work Phone: Start: 06-24-2017 End: 06-24-[address] [facility] Work Phone: Start: 06-24-2017 End: 06-24-2017 Radex elbow complete minimum 3 views X-Ray, Elbow [facility] Work Phone: Start: 06-07-2017 End: 06-07-2017 Radex elbow complete minimum 3 views X-Ray, Elbow [facility] Work Phone: Start: 06-07-2017 End: 06-07-[address] [facility] Work Phone: Start: 05-24-2017 End: 05-24-2017 Radex elbow complete minimum 3 views X-Ray, Elbow [facility] Work Phone: Start: 05-24-2017 End: 05-24-2017 X-ray exam of elbow X-Ray, Elbow [facility] Work Phone: Start: 05-17-2017 End: 05-17-[address] [facility] Work Phone: Alternaria alternata IgE Ab [Units/volume] in Serum [facility] Work Phone: Turkish Cockroach I gE Ab [Units/volume] in Serum [facility] Work Phone: Turkish house dust mite IgE Ab [Units/volume] in Serum [facility] Work Phone: Aspergillus fumigatus [facility] Work Phone: Bermuda grass IgE Ab [Units/volume] in Serum [facility] Work Phone: Blood chemistry [facility] Box elder [facility] Work Phone: Calcium [Mass/volume ] in Serum or Plasma [facility] Cat dander [facility] Work Phone: Cladosporium herbaru m IgE Ab [Units/volume] in Serum [facility] Work Phone: Clostridioides diffi cile DNA [Presence] in Unspecified specimen by SPRING with probe detection [facility] Work Phone: Common Ragweed IgE A b [Units/volume] in Serum [facility] Work Phone: Continuous pulse oximetry [facility] Tanana [facility] Work Phone: CT Chest WO contrast [facility] Dog epithelium IgE A b [Units/volume] in Serum [facility] Work Phone: Enterovirus RNA [Pre sence] in Cerebral spinal fluid by SPRING with probe detection [facility] Work Phone: house dust mite IgE Ab [Units/volume] in Serum [facility] Work Phone: IgE [Units/volume] i n Serum or Plasma [facility] Work Phone: Immunoglobulin E measurement [facility] Work Phone: Magnesium [Mass/volu me] in Serum or Plasma [facility] Measurement of respi ratory function [facility] Work Phone: Mouse urine proteins [facility] Work Phone: Ova and parasites identified in Unspecified specimen by Light microscopy [facility] Work Phone: Patient Education ED Asthma, Acu te (Adult) [facility] Work Phone: Patient referral [facility] Work Phone: Pecan or [employer] Nut IgE Ab [Units/volume] in Serum [facility] Work Phone: Rough Pigweed IgE Ab [Units/volume] in Serum [facility] Work Phone: Sheep Lamy IgE Ab [Units/volume] in Serum [facility] Work Phone: Silver Birch IgE Ab [Units/volume] in Serum [facility] Work Phone: Gloria IgE Ab [Units/volume] in Serum [facility] Work Phone: Tree pollen [facility] Work Phone: [place] [facility] Work Phone: White Konrad IgE Ab [Units/volume] in Serum [facility] Work Phone: White Elm IgE Ab [Units/volume] in Serum [facility] Work Phone: White mulberry IgE A b [Units/volume] in Serum [facility] Work Phone: [facility] Immunizations Immunization Date Immunization Notes Care Provider Fa cility 09-19-2022 influenza, injectabl e, quadrivalent, preservative free Dr. Yoel Do DO Work Phone: [facility] 09-19-2022 influenza, seasonal, injectable Dr. Yoel Do Work Phone: [facility] 08-13-2022 pneumococcal polysaccharide vaccine, [address] Yoel oD Work Phone: [facility] 05-10-2017 tetanus toxoid, redu ghazala diphtheria toxoid, and acellular pertussis vaccine, adsorbed Dr. Yoel Do Work Phone: [facility] Payers Date Payer Category Payer Self-pay [id number] 2023 Unknown [id number] 1950 Unknown [id number] Unknown [id number] Unknown [facility] PACKAGE PLAN [id number] Unknown [facility] PACKAGE PLAN . [id number] Unknown [id number] [id number] Unknown [id number] 2.16.8 [id number] Unknown [id number] 2.16.8 [id number] Unknown [id number] 2.16.8 [id number] Unknown [id number] 2.16.8 [id number] Unknown [id number] 2.16.8 [id number] Unknown [id number] 2.16.8 [id number] Unknown [id number] 2.16.8 [id number] Unknown [id number] 2.16.8 [id number] Unknown [id number] 2.16.8 [id number] Social History Date Type Detail Facility Start: 08-13-2022 End: 11-20-2022 Tobacco smoking status ILIS Unknown if ever smoked [facility] Start: 05-10-2017 None [facility] Start: 05-10-2017 With Family [facility] Start: 05-10-2017 Non-smoker [facility] Start: 1950 Sex Assigned At Male [facility] Start: 10-22-2024 End: 04-07-2025 Tobacco smoking status NHIS Ex-smoker (finding) [facility] Start: 12-24-2024 Sex Male (finding) [facility] Goals Date Patient Goal Desired Activity /State Functional Status Date Assessment Result Facility 10-23-2024 Functional status Activity Ability Indepe ndent [facility] Work Phone: Mental Status Date Assessment Result Facility 04-07-2025 Cognitive function Voice/Name [facility] Work Phone: 10-23-2024 Cognitive function Appropriate;Leeanne schmitz [facility] Work Phone: 10-22-2024 Cognitive function Voice/Name [facility] Work Phone: Clinical Notes 11-09-2022 to 04-07-2025 Note Date & Type Note Facility 04-07-2025 Radiology Diagnostic study note [facility] Imaging Services [address] [place] [address] Chest 1 View (Portable) MR#: [id number] Acct: [id number] Name: ANGELA AGUILAR Rep #: [id number] : [id number] M [id number] From: Viki Scott MD PCP: Dr. Yoel Do DO Status: PRE ER Study:Chest 1 View (Portable) Date of Exam: 04/07/25 Exam# [id number] Ordering Dr: Doug Duenas DO PROCEDURE: CHEST 1 VIEW (PORTABLE) 04/07/2025 REASON FOR EXAM: CHEST PAIN TECHNIQUE: Frontal view of the chest. COMPARISON: CT 03/24/2025 FINDINGS: Lordotic positioning. Normal heart size. Well inflated lungs. No consolidation, effusion, or pneumothorax. RAD/Chest 1 View (Portable) IMPRESSION: No acute chest findings Reading Location: RAD-[facility]-2 CC: Dr. Doug Duenas DO; Dr. Yoel Do DO ~ Bus System Operator: Signed [facility] 03-24-2025 Radiology Diagnostic study note [facility] Imaging Services [address] [place] [address] Chest without Contrast MR#: [id number] Acct: [id number] Name: ANGELA AGUILAR Rep #: [id number] : 1950 M 75 From: Keven Purcell MD PCP: Dr. Yoel Do DO Status: REG CL I Study:Chest without Contrast Date of Exam: 03/23/25 Exam# [id number] Ordering Dr: Watson DO PROCEDURE: CHEST WITHOUT CONTRAST 03/23/2025 REASON FOR EXAM: MULTIPLE LUNG NODULES TECHNIQUE: Chest CT without contrast. Coronal and Sagittal reconstruction series were provided. One or more dose reduction techniques were used (e.g., Automated exposure control, adjustment of the mA and/or kV according to patient size, use of iterative reconstruction technique RADIATION DOSE SUMMARY: CTDlvol: 6.31 mGy DLP: 233.53 mGycm COMPARISON: Prior study dated December 22, 2024. FINDINGS: Hardware: None Lymph nodes: No suspicious mediastinal or hilar lymph nodes. Calcified left hilar lymph nodes. Scattered calcified granulomas in the left hemithorax. Heart and Vasculature: Coronary artery calcifications are noted. Atheroscleroticcalcifications of the thoracic aorta. Thoracic aorta and pulmonary arteries have normal contours; noncontrast technique limits evaluation. Coronary Artery Calcifications: Present Lungs and Airways: Mild emphysematous changes are present. Stable apical scarring as well as linear scarring at the left lung base. Scattered left calcified granulomas. The previously seen 9 mm nodule in the left upper lobe has decreased in size. It presently measures 8 mm. Pleura: No pleural effusion. Upper Abdomen: Unremarkable Bones: Increased kyphosis. Almost complete collapse of a mid dorsal vertebrae. Loss of height of multiple thoracic vertebrae. CT/Chest without Contrast IMPRESSION: Coronary artery calcification (CAC) is is present Stable emphysematous changes. Calcified left hilar lymph nodes and left granulomas. Interval decrease in size of the previously seen 9 mm nodule in the left upper lobe. Reading Location: [place] [address] CC: Dr. Paras Renee DO; Dr. Yoel Do DO ~ Bus System Operator: Signed [facility] 01-14-2025 Evaluation note Diagnosis Onset Date Resolution Chronic obstructive asthma (with obstructive pulmonary disease) acute January 14, 2025 10 :13am Multiple lung nodules on CT chronic January 14, 2025 10 :13am History of tobacco use inactive Ma y 2024 10:13am Nocturnal hypoxia inactive January 10:13am [facility] Work Phone: 1(906) 718-345504-15-2025 Radiology Diagnostic study note [facility] Imaging Services [address] [place], [place] [address] Chest without Contrast MR#: [id number] Acct: [id number] Name: ANGELA AGUILAR Rep #: [id number] : [id number] M [id number] From: Christiane Colon MD PCP: Dr. Yoel Do, DO Status: REG CL I Study:Chest without Contrast Date of Exam: 12/22/24 Exam# [id number] Ordering Dr: Cristina Davis NP LIQUID YEAST SUPERVISOR-C PROCEDURE: CHEST WITHOUT CONTRAST 12/22/2024 REASON FOR EXAM: GROUNDGLASS TECHNIQUE: Chest CT without contrast. Coronal and Sagittal reconstruction series were provided. One or more dose reduction techniques were used (e.g., Automated exposure control, adjustment of the mA and/or kV according to patient size, use of iterative reconstruction technique RADIATION DOSE SUMMARY: CTDlvol: 6.53 mGy DLP: 241.58 mGycm COMPARISON: 10/22/2024 FINDINGS: Note that evaluation of the vasculature, baljeet, and soft tissues is limited in the absence of IV contrast. Heart/pericardium: Mild but multivessel coronary atherosclerosis and/or stents. Trace aortic annular calcification. Aorta: Mild/moderate calcific atherosclerosis. Pulmonary arteries: Normal in caliber. Lymph nodes: Chronic granulomatous disease. Prominent but technically nonenlarged precarinal node, 9 mm short axis. Lungs/pleura: Emphysema. Biapical pleural/parenchymal scarring. Mild dependentatelectasis/scarring.Improved dependent airspace disease. Similar 4 mm LEFT lower lobe nodule (series 2, image 61). Similar 9 x 8 mm LEFT upper lobe nodule difficult to differentiate from adjacent bronchovascular structures (series 2, image 57). New 4 mm LEFT upperlobe nodule (image 51). Similar additional 3 mm LEFT upper lobe nodule (image 55). Granulomas.. Airways: Similar central bronchial wall thickening. Chest wall: Unremarkable. Upper abdomen: Chronic granulomatous disease.. Musculoskeletal: Marked demineralization. Similar multilevel thoracic compression deformities. Multilevel spondylosis. Mild scoliosis. Similar subacute to chronic nondisplaced LEFT rib fractures.. CT/Chest without Contrast IMPRESSION: 1. Improved dependent bilateral lower lobe airspace disease with minimal residual likely atelectasis/scarring. 2. Emphysema with nonspecific pulmonary nodules as detailed, largest 9 mm in theLEFT upper lobe unchanged from recent exam, including a new 4 mm LEFT upper lobe nodule. Recommend CT chest in 3 months perthe Fleischner Society recommendations, presuming no history of known malignancy or immunosuppression. Additionally given emphysema, consider ongoing lung cancer screening per the below. 3. Similar mild bronchial wall thickening which may be smoking-related or indicative of bronchitis. 4. Additional description as above. The USPSTF recommends annual screening for lung cancer with low-dose computed tomography (LDCT) in adults aged 50 to 80 years who have a 20 pack-year smoking history and currently smoke or have quit within the past 15 years. Reading Location: [id number] CC: JOE Davis; Dr. Yoel Do DO ~ Bus System Operator: Signed [facility]02-14-2025 [facility] Medical Records Department [address] [place] [address] Discharge Summary 10/23/24 1640 MR#: [id number] Acct: [id number] Name: ANGELA AGUILAR Rep #: [id number] : 1950 74 From: Scarlett Morse DO PCP: Dr. Yoel Do DO Status:DIS IN Location: [place] [id number] Providers Date of Admission: 10/22/24 Date of Discharge: 10/23/24 Primary Care Physician: Dr. Yoel Do DO Consultations 10/22/24 21:13 Consult: Finance Teacher / Pulmonary Medicine Routine Consulting Provider: Intensivists/Pulmonary Med Reason for Consult: Pneumonia, AECOPD, IPF and Respiratory Insufficiency. EMERGENT Consult: No MD Notified: Yes Date Notified: 10/22/24 Time Notified: 22:39 Method of Notification: Answering Service Reason For Visit: PNEUMONIA, AE COPD, IPF RESPIRATORY Diagnosis Discharge Diagnosis (1) Asthma-COPD overlap syndrome: Status: Chronic Code(s): J44.89 - Other specified chronic obstructive pulmonary disease Plan 1. Asthma/COPD overlap syndrome with exacerbation #2 chronic depression #3 left upper lobe pulmonary nodule Medications at Discharge Home Medications mirtazapine 15 mg tablet 15 mg PO QHS mental health 08/13/22 ipratropium bromide 21 mcg (0.03 %) nasal spray 2 spray intranasal BID-TID PRN allergy symptoms #30 mL 11/20/22 potassium chloride 10 mEq tablet,extended release 10 meq PO DAILY supplement #30 tabs 11/20/22 albuterol sulfate 90 mcg/actuation aerosol inhaler 2 inh inhalation Q6H PRN shortness of breath or wheezing #8.5 grams 09/24/23 budesonide 160 mcg-glycopyr 9 mcg-formot 4.8 mcg/actuation HFA inhaler (Breztri Aerosphere) 2 inh inhalation BID breathing #10.7 grams 08/24/24 alprazolam 1 mg tablet 0.5 mg PO QHS sleep 10/22/24 meloxicam 15 mg tablet 15 mg PO DAILY pain 10/22/24 venlafaxine 75 mg capsule,extended release 24 hr 75 mg PO DAILY mental health 10/22/24 prednisone 20 mg tablet 40 mg (2 x 20 mg) PO DAILY #14 tabs 10/23/24 Hospital Course Operations None Procedures None Summary of Care Provided Minutes Spent on Discharge: 31 Hospital Course: This 74-year-old white male was seen in the emergency room at [facility] with a chief complaint of shortness of breath and wheezing. Workup in the emergency room included a CT of the chest that revealed no evidence of pulmonary emboli but did show bilateral groundglass opacities with bronchiectasis and honeycombing most compatible with interstitial pulmonary fibrosis. There was noted to be a left upper lobe pulmonary nodule present. Workup in the emergency room showed an elevated white blood cell count of 12.5, hemoglobin was 12.2, patient's pulse ox on room air was 91%, when he was ambulated, he became dyspneic and his pulse ox fell to 85%. Patient was admitted to PCU and placed on aerosol treatments, given IV antibiotics, and given IV Solu-Medrol, he was seen in consultation by pulmonary medicine who recommended additional testing be ordered and did not feel the patient needed antibiotic treatment. Patient was checked prior to discharge and did not require oxygen while ambulating or at rest. On 10/23/2024, patient was seen and examined: On examination he appeared in good health and spirits. Vital signs as documented. Skin warm and dry and without overt rashes. Neck without JVD, neck was supple, trachea midline, thyroid was normal. Lungs-scattered inspiratory rales were noted over the patient's lung bases, normal air movement was noted. Heart exam notable for regular rhythm, normal sounds and absence of murmurs, rubs or gallops. Abdomen unremarkable and without evidence of organomegaly, masses, or abdominal aortic enlargement. Bowel sounds are present, abdomen is not distended. Extremities nonedematous, no cyanosis was noted, no clubbing was noted. Neuro: Cranial nerves II through XII are grossly intact, no focal motor deficits were noted, sensation to light touch and pinprick intact, motor exam 5/5 throughout. Psych: Patient is alert and oriented x3, he does not appear anxious or depressed, he does not appear agitated. Patient appears stable for discharge home on 10/23/2024. Weight / BMI Weight Weight: 55.6 kg Body Mass Index (BMI) 19.8 ABG / Lab / Microbiology Data 10/23/24 05:25 10/23/24 05:25 Laboratory: Laboratory Results - last 24 hr 10/22/24 16:55: WBC 12.5 H, RBC 3.95 L, Hgb 12.2 L, Hct 37.1 L, MCV 93.9, MCH 30.9, MCHC 32.9, RDW Std Deviation 45.9 H, RDW Coeff of Salvador 13.3, Plt Count 215, MPV 9.2, Immature Gran % (Auto) 0.400, N eut % (Auto) 80.5 H, Lymph % (Auto) 10.0 L, Wagoner % (Auto) 8.1, Eos % (Auto) 0.6, Baso % (Auto) 0.4, Absolute Neuts (auto) 10.0 H, Absolute Lymphs (auto) 1.25, Nucleated RBC % 0, Sodium 136, Potassium 4.0, Chloride 102, Carbon Dioxide 29.0, Anion Gap 6, BUN 13, Creatinine 1.02, Estim Creat Clear Calc 47.67, Est (more content not included)...[facility]02-13-2025 Evaluation note* Diagnosis Onset Date Resolution Status Admit Date Pulmonary nodule acute October 22, 2024 8:19pm Chronic obstructive asthma (with obstructive pulmonary disease) inactive October 22 8:19pm Bronchiectasis inactive October 102024 8:19pm COPD with acute exacerbation inactiv e October 22, 2024 8:19pm Difficulty urinating inactive Febr uary 2024 8:19pm Exposure to environmental toxic substances inactive October 22, 2024 8:19pm History of tobacco use inactive Fe bruary 2024 8:19pm IPF (idiopathic pulmonary fibrosis) inactive February 13th, 2 025 8:19pm Nocturnal hypoxia inactive 2024 8:19pm Perennial non-allergic rhinitis inactive October 22 025 8:19pm Respiratory insufficiency inactive October 22, 2024 8:19pm Atypical pneumonia deleted 2024 8:19pm Abnormal CT scan, chest acute M arch 2024 8:55am Asthma-COPD overlap syndrome chronic November 23, 2024 8:55am [facility] Work Phone: [phone] 494-700406-06-[address] [facility] 11-09-2022 [facility] Diagnosis Onset Date Resolution Status Allergic rhinitis due to allergen acute Diarrhea acute Eosinophilia acute History of tobacco use chron ic Chronic obstructive pulmonary disease noneactive [facility] Work Phone: Evaluation note* Diagnosis Onset Date Resolution Status Allergic rhinitis due to allergen acute Diarrhea acute Eosinophilia acute History of tobacco use chron ic Chronic obstructive pulmonary disease noneactive Allergic rhinitis due to allergen acute Eosinophilia acute [id number] acute Chronic obstructive asthma ( with obstructive pulmonary disease) chronic [facility] Work Phone: Evaluation note* Diagnosis Onset Date Resolution Status Eosinophilia acute Perennial non-allergic rhinitis acute [id number] acute History of tobacco use chron ic [facility] Work Phone: Evaluation note* Diagnosis Onset Date Resolution Status Admit Date Chronic obstructive asthma (with obstructive pulmonary disease) acute May 19, 2025 10:49am Multiple lung nodules on CT chronic May 19, 2025 10:49am [facility] Work Phone: Reason for referral (narrative)No reason for referral information [facility] Work Phone: Summary Purpose Family History No Family History Records Found Relationship Condition Age at Onset Recorded Date/T maite mother Cardiac disease Unknown Advance Directives No Advanced Directives Records Found Advance Directive Response Recorded Date/ Time Living Will No May 10 4:38pm Power of Inspector Circuitry Negative No May 10, 2017 4:38pm Advance Directive Response Recorded Date/ Time Living Will No May 10 5:38pm Power of Inspector Circuitry Negative No May 10, 2017 5:38pm Advance Directive Response Recorded Date/ Time Living Will No May 10 017 5:38pm Do you have a Healthcare Power of Inspector Circuitry Negative? No May 10, 2017 5:38pm Living Will No October 22 025 10:13pm Do you have a Healthcare Power of Inspector Circuitry Negative? No October 22, 2024 10:13pm Advance Directive Response Recorded Date/ Time Do you have a Healthcare Power of Inspector Circuitry Negative? No April 07, 2025 9:31pm Chief Complaint and Reason for Visit Chief Complaint COPD EORDER Reason for Visit Allergic rhinitis du e to allergen Diarrhea Eosinophilia History of tobacco use Chronic obstructive pulmonary disease Chief Complaint COPD EORDER E ORDER COPD COPD Reason for Visit Allergic rhinitis du e to allergen Diarrhea Eosinophilia History of tobacco use Chronic obstructive pulmonary disease Chief Complaint COPD EORDER E ORDER COPD COPD 1 M FU NEED E ORDERS?? Reason for Visit Allergic rhinitis du e to allergen Diarrhea Eosinophilia History of tobacco use Chronic obstructive pulmonary disease Allergic rhinitis due to allergen Eosinophilia [id number] Chronic obstructive asthma (with obstructive pulmonary disease) Chief Complaint COPD EORDER E ORDER COPD COPD 1 M FU NEED E ORDERS?? COPD, COMPLETE ON RA Reason for Visit Allergic rhinitis du e to allergen Diarrhea Eosinophilia History of tobacco use Chronic obstructive pulmonary disease Allergic rhinitis due to allergen Eosinophilia [id number] Chronic obstructive asthma (with obstructive pulmonary disease) Chief Complaint COPD EORDER E ORDER COPD COPD 1 M FU NEED E ORDERS?? COPD, COMPLETE ON RA COPD COPD Reason for Visit Allergic rhinitis du e to allergen Diarrhea Eosinophilia History of tobacco use Chronic obstructive pulmonary disease Allergic rhinitis due to allergen Eosinophilia [id number] Chronic obstructive asthma (with obstructive pulmonary disease) Chief Complaint COPD COPD 5 week follow up ASTHMA ASTHMA Reason for Visit Eosinophilia Perennial non-allergic rhinitis [id number] History of tobacco use Chief Complaint Admit Date PNEUMONIA, AE COPD, IPF & RESPIRATORY Fe bruary 2024 8:19pm PNEUMONIA, AE COPD, IPF & RESPIRATORY Fe bruary 2024 11:51am PNEUMONIA, AE COPD, IPF & RESPIRATORY Fe bruary 2024 4:40pm 1 Y FU November 23, 2024 8:5 5am groundglass December 22, 2024 7:5 0am Reason for Visit Admit Date Pulmonary nodule October 22, 2024 8:19pm Chronic obstructive asthma ( with obstructive pulmonary disease) October 22, 2024 8:19pm Bronchiectasis October 22, 2024 8:19pm COPD with acute exacerbation October 222024 8:19pm Difficulty urinating October 22, 2024 8:19pm Exposure to environmental toxic substanc es October 22, 2024 8:19pm History of tobacco use October 22 8:19pm IPF (idiopathic pulmonary fibrosis) Febr uary 2024 8:19pm Nocturnal hypoxia October 22, 2024 8:19pm Perennial non-allergic rhinitis October 22, 2024 8:19pm Respiratory insufficiency October 22, 2024 8:19pm Atypical pneumonia October 22, 2024 8:19pm Abnormal CT scan, chest November 23, 2024 8:55am Asthma-COPD overlap syndrome November 23, 2024 8:55am Chief Complaint Admit Date groundglass December 22, 2024 7:5 0am 6 wk FU-PER [facility] January 14, 2025 10:13a m MULTIPLE LUNG NODULES March 23, 2025 5: 29pm Reason for Visit Admit Date Chronic obstructive asthma (with obstruc tive pulmonary disease) January 14, 2025 10:13am Multiple lung nodules on CT January 14 10:13am History of tobacco use January 14, 2025 10: 13am Nocturnal hypoxia January 14, 2025 10:13a m Chief Complaint Admit Date groundglass December 22, 2024 7:5 0am 6 wk FU-PER [facility] January 14, 2025 10:13a m MULTIPLE LUNG NODULES March 23, 2025 5: 29pm CHEST PAIN AND SOB April 07, 2025 9:29 pm Chief Complaint Admit Date MULTIPLE LUNG NODULES March 23, 2025 5: 29pm CHEST PAIN AND SOB April 07, 2025 9:29 pm 4 M FU May 19, 2025 10:49am Reason for Visit Admit Date Chronic obstructive asthma ( with obstructive pulmonary disease) May 19, 2025 10:49am Multiple lung nodules on CT May 192024 10:49am Additional Source Comments (unrecognized sect ion and content) No Status Records FoundNo Status Records FoundNo Status Records Found INFORMATION SOURCE (unrecogn ized section and content) DATE CREATED AUTHOR 10/04/2020 [facility] DATE CREATED AUTHOR AUTHOR'S ORGANIZ ATION 04/14/2022 Hiro Snyder [facility] DATE CREATED AUTHOR AUTHOR'S ORGANIZ ATION 05/21/2025 [facility] Goals (unrecognized section and content) Goals may be documented in a n alternate sectionGoals may be documented in an alternate sectionGoals may be documented in an alternate sectionGoals may be documented in an alternate sectionGoals may be documented in an alternate sectionGoals may be documented in an alternate sectionGoals may be documented in an alternate sectionGoals may be documented in an alternate sectionGoals may be documented in an alternate section Care Teams (unrecognized sec tion and content) Team Status: Active Member Role Status Dates Dr. Yoel Do DO Family Provider Active Dr. Yoel Do DO Primary Care Provider Active Team Status: Inactive Member Role Status Dates Dr. Yoel Do DO Primary Care Provider, Referring Provider Active Dr. Eduardo Romo MD Attending Provider Active Team Status: Active Member Role Status Dates Dr. Yoel Do DO Primary Care Provider Active Dr. Eduardo Romo MD Referring Provider, Other Pro vider Active Dr. Chris Harrell MD Attending Provider Active Team Status: Inactive Member Role Status Dates Dr. Yoel Do DO Primary Care Provider Active Dr. Eduardo Romo MD Attending Provider, Referring Provider Active Team Status: Active Member Role Status Dates Dr. Yoel Do DO Primary Care Provider Active Jackelin Davis LIQUID YEAST SUPERVISOR, LIQUID YEAST SUPERVISOR-C Referring Provider, Other Pr ovider Active Dr. Eduardo Romo MD Attending Provider Active Team Status: Inactive Member Role Status Dates Dr. Yoel Do DO Primary Care Provider Active Jackelin Davis LIQUID YEAST SUPERVISOR, LIQUID YEAST SUPERVISOR-C Attending Provider, Referrin g Provider Active Team Status: Active Member Role Status Dates Dr. Yoel Do DO Primary Care Provider Active Team Status: Inactive Member Role Status Dates Dr. Yoel Do DO Primary Care Provider Active Start: October 22, 2024 End: October 23, 2024 Dr. Jani Britt DO Referring Provider Active Start: October 22, 2024 End: October 23, 2024 Dr. Jani Britt , Emergency Provider Active Start: October 22, 2024 End: October 23, 2024 Dr. Pk Lowery , DO Admit Provider Active Start: October 22, 2024 End: October 23, 2024 Dr. Pk Lowery DO Other Provider Active Start: October 22, 2024 End: October 23, 2024 Dr. Scarlett Morse DO Attending Provider Active Start: October 22, 2024 End: October 23, 2024 Dr. Vimal Mcguire MD Other Provider Active Start: October 22, 2024 Dr. Chris Harrell MD Other Provider Active Star t: October 22, 2024 Dr. Paras Renee DO Other Provider Active Start : October 22, 2024 Dr. Pk Colbert MD Other Provider Active Sta rt: October 22, 2024 Dr. Yifan Armijo MD Other Provider Active St art: October 22, 2024 Dr. Renny Bashir MD Other Provider Active S tart: October 22, 2024 Dr. Alisha Romero MD Other Provider Active Start: October 22, 2024 Dr. Yousif Jamison MD Other Provider Active Start : October 22, 2024 Dr. Dav Clement MD Other Provider Active Start: October 22, 2024 Dr. Franklin Servin MD Other Provider Active Start : October 22, 2024 Dr. Lakeisha Dawn MD Other Provider Active Star t: October 22, 2024 Dr. Go Mac MD Other Provider Active Sta rt: October 22, 2024 Dr. Taylor Moran MD Other Provider Active Sta rt: October 22, 2024 Dr. Pieter Bean MD Other Provider Active Star t: October 22, 2024 Dr. Axel Maria MD Other Provider Active St art: October 22, 2024 Dr. Rosales Webster MD Other Provider Active Star t: October 22, 2024 Dr. Arian Anthony DO Other Provider Active St art: October 22, 2024 Dr. Rebecca Mckeon MD Other Provider Active Start: October 22, 2024 Dr. Edgar Hassan MD Other Provider Active St art: October 22, 2024 Dr. Gloria Kan DO Other Provider Active Start: October 22, 2024 Dr. Jeet Casas MD Other Provider Active Star t: October 22, 2024 Dr. Steven Martínez MD Other Provider Active Sta rt: October 22, 2024 Dr. Scarlett Morse , DO Other Provider Active S tart: October 22, 2024 Team Status: Active Member Role Status Dates Dr. Yoel Do DO Primary Care Provider Active Start: October 23, 2024 Dr. Jani Britt , Referring Provider Active Start: October 23, 2024 Dr. Jani Britt , Emergency Provider Active Start: October 23, 2024 Dr. Pk Lowery , Admit Provider Active Start: October 23, 2024 Dr. Pk Lowery , Other Provider Active Start: October 23, 2024 Dr. Scarlett Morse , DO Other Provider Active S tart: October 23, 2024 Dr. Paras Renee , Attending Provider Active S tart: October 23, 2024 Team Status: Active Member Role Status Dates Dr. Yoel Do DO Primary Care Provider Active Start: October 23, 2024 Dr. Jani Britt , Emergency Provider Active Start: October 23, 2024 Dr. Pk Lowery , Admit Provider Active Start: October 23, 2024 Dr. Pk oLwery , Other Provider Active Start: October 23, 2024 Dr. Scarlett Morse , Attending Provider Active Start: October 23, 2024 Dr. Scarlett Morse , Other Provider Active S tart: October 23, 2024 Team Status: Inactive Member Role Status Dates Dr. Yoel Do DO Primary Care Provider Active Start: November 23, 2024 End: November 23, 2024 Dr. Yoel Do , Referring Provider Active S tart: November 23, 2024 End: November 23, 2024 Jackelin Davis LIQUID YEAST SUPERVISOR, LIQUID YEAST SUPERVISOR-C Attending Provider Active Start: November 23, 2024 End: November 23, 2024 Team Status: Inactive Member Role Status Dates Dr. Yoel Do DO Primary Care Provider Active Start: December 22, 2024 End: December 22, 2024 Jackelin Davis LIQUID YEAST SUPERVISOR, LIQUID YEAST SUPERVISOR-C Attending Provider Active Start: December 22, 2024 End: December 22, 2024 Jackelin Davis LIQUID YEAST SUPERVISOR, LIQUID YEAST SUPERVISOR-C Referring Provider Active Start: December 22, 2024 End: December 22, 2024 Team Status: Active Member Role/Relationship Status Dates Dr. Yoel Do DO Primary Care Provider Active Team Status: Inactive Member Role/Relationship Status Dates Dr. Yoel Do , Primary Care Provider Active Start: December 22, 2024 End: December 22, 2024 Jackelin Davis LIQUID YEAST SUPERVISOR, LIQUID YEAST SUPERVISOR-C Attending Provider Active Start: December 22, 2024 End: December 22, 2024 Jackelin Davis LIQUID YEAST SUPERVISOR, LIQUID YEAST SUPERVISOR-C Referring Provider Active Start: December 22, 2024 End: December 22, 2024 Team Status: Inactive Member Role/Relationship Status Dates Dr. Yoel Do , Primary Care Provider Active Start: January 14, 2025 End: January 14, 2025 Dr. Yoel Do , DO Referring Provider Active S tart: January 14, 2025 End: January 14, 2025 Dr. Paras Renee , DO Attending Provider Active S tart: January 14, 2025 End: January 14, 2025 Team Status: Inactive Member Role/Relationship Status Dates Dr. Yoel Do DO Primary Care Provider Active Start: March 23, 2025 End: March 23, 2025 Dr. Paras Renee , Attending Provider Active S tart: March 23, 2025 End: March 23, 2025 Dr. Paras Renee , DO Referring Provider Active S tart: March 23, 2025 End: March 23, 2025 Team Status: Inactive Member Role/Relationship Status Dates Dr. Yoel Do DO Primary Care Provider Active Start: April 07, 2025 End: April 08, 2025 Dr. Doug Duenas , Emergency Provider Active Start: April 07, 2025 End: April 08, 2025 Team Status: Inactive Member Role/Relationship Status Dates Dr. Yoel Do DO Primary Care Provider Active Start: March 23, 2025 End: March 23, 2025 Dr. Paras Renee , Attending Provider Active S tart: March 23, 2025 End: March 23, 2025 Dr. Paras Renee , Referring Provider Active S tart: March 23, 2025 End: March 23, 2025 Team Status: Inactive Member Role/Relationship Status Dates Dr. Yoel Do DO Primary Care Provider Active Start: April 07, 2025 End: April 08, 2025 Dr. Doug Duenas , Attending Provider Active Start: April 07, 2025 End: April 08, 2025 Dr. Doug Duenas , DO Emergency Provider Active Start: April 07, 2025 End: April 08, 2025 Team Status: Inactive Member Role/Relationship Status Dates Dr. Yoel Do , Primary Care Provider Active Start: May 19, 2025 End: May 19, 2025 Dr. Yoel Do , DO Referring Provider Active S tart: May 19, 2025 End: May 19, 2025 BRITTNEE PrescottC Attending Provider Active Start: May 19, 2025 End: May 19, 2025 FOR RECORDS PERTAINING TO PATIENTS WHO ARE OR HAVE BEEN ENROLLED IN A CHEMICAL DEPENDENCY/SUBSTANCEABUSE PROGRAM, SOME INFORMATION MAY BE OMITTED. This clinical summary was aggregated from multiple sources. Caution should be exercised in using it in the provision of clinical care. This summary normalizes information from multiple sources, and as a consequence, information in this document may materially change the coding, format and clinical context of patient data. In addition, data may be omitted in some cases. CLINICAL DECISIONS SHOULD BE BASED ON THE PRIMARY CLINICAL RECORDS. [facility] [employer] provides no warranty or guarantee of the accuracy or completeness of information in this document.
== END 2025-08-16 12:25 | disposition home or self-care (01) ==
PROVIDERS: Emergency Provider Emergency Medicine; PCP Nurse Practitioner Family; Visit Provider Emergency Medicine
DX: J44.1 Chronic obstructive pulmonary disease with (acute) exacerbation (principal); J44.0 Chronic obstructive pulmonary disease with (acute) lower respiratory infection; Z87.891 Personal history of nicotine dependence; J20.9 Acute bronchitis, unspecified
CPT/HCPCS: 71046; 87631; 93005; 94640; 99283